=== PATIENT | male | born 1950 ===

== ENCOUNTER 2023-05-17 15:39 | Inpatient (IN) | payer MEDICARE, SELFPAY ==
[2023-05-17 16:48] VITALS: BMI 24.6
--- NOTE | 2023-05-17 16:59 | P.EN_ITS ---
Event Note Date of Service: 05/17/23 Event Note: Patient's case reviewed with Dr. Felix Jerome [facility] requesting transfer for patient for ECT for treatment resistant depression has had it in the past at [facility] patient has signed a Section 3 for transfer he in the family are requesting ECT treatment Records review Time Spent With Patient Time: Total time managing care of this patient today ____ minutes.
--- NOTE | 2023-05-17 18:01 | PC.ADMIT ---
Addendum entered and electronically signed by Lilly Jeronimo RN 05/17/23 18:25: Dr Garcia/Dr Andrade notified of WBC 13.85, platelet count 445 reported by [facility] during nurse to nurse report. Original Note: This is the 1st admission for this 72 y.o. male to this [facility] at [facility]. Arrived on unit at 1600 and placed on 15 min safety checks. Signed conditional voluntary. Referred by [facility] with Dx of Major Depressive D/O. Had been inpt on their Behavioral Health unit since 04/26/23, lateral transfer to this unit pending possible ECT treatment. Precipitating events to admission: ongoing depression, brian, psychosis and/or substance use with associated inability to safely/adequately care for self. Doc to doc report, nurse to nurse report done with [facility] prior to transfer. Pt presents with depressed mood and affect upon admission. Pleasant and attentive during admission process. Alert and oriented x4. Rates depression #8 and anxiety #7 on scale 1-10(10 worse). Denies SI/HI, denies AH/VH. Reports problems falling and staying asleep and state he is prescribed Trazodone. Reports poor appetite recently with approximately 14 pound wt loss. Reports chronic back pain rating #1 on scale 1-10(10 worse). Medical issues: NIDDM, HTN. Substance issues: reports etoh 4x week and marijuana use prior to admission to [facility] 04/26/23. Oriented to unit, safety tool completed. Ate 1/2 grilled cheese sandwich and 120ml cranberry juice for supper. Declined flu vaccine as he states he has already received this season.
[2023-05-17 19:57] VITALS: BP 129/70; PULSE 100; RESP 18; TEMP 36.5; O2SAT 96
[2023-05-17] MEDS: metFORMIN HCl 500 MG TABLET PO (22:12)
[2023-05-17] MEDS: traZODone HCL 100 MG TABLET PO (22:13)
[2023-05-17] MEDS: OLANZapine 7.5 MG TABLET PO (22:13)
[2023-05-18 08:23] LABS: Glucose, Whole Blood 99 mg/dL (60-115)
[2023-05-18 08:30] VITALS: BP 133/63; PULSE 79; RESP 20; TEMP 36.2; O2SAT 96
[2023-05-18] MEDS: Cholecalciferol (Vitamin D3) 25 MCG TABLET PO (08:32)
[2023-05-18] MEDS: metFORMIN HCl 500 MG TABLET PO ×2 (08:32→18:16)
[2023-05-18] MEDS: Atorvastatin Calcium 20 MG TABLET PO (08:32)
[2023-05-18] MEDS: OLANZapine 2.5 MG TABLET PO (08:33)
[2023-05-18] MEDS: buPROPion HCl XL 150 MG TAB.ER.24H PO (08:33)
[2023-05-18] MEDS: lisinopriL 10 MG TABLET PO (08:33)
[2023-05-18] MEDS: Escitalopram Oxalate 10 MG TABLET PO (08:33)
[2023-05-18] MEDS: Multivitamin TABLET 1 TAB PO (08:34)
[2023-05-18 10:42] LABS: Basophils Absolute Auto 0.1 X10*3/uL (0.0-0.2); Basophils Percent Auto 0.4 % (0-2); Eosinophils Absolute Auto 0.1 X10*3/uL (0.0-0.4); Eosinophils Percent Auto 0.8 % (0-4); Hematocrit 48.2 % (42.0-52.0); Hemoglobin 17.2 g/dl (14.0-18.0); Imm Gran Abs Auto 0.03 X10*3/uL (0.00-0.03); Imm Gran Pct Auto 0.3 % (0.0-0.4); Lymphocytes Absolute Auto 1.1 X10*3/uL (1.2-4.9); Lymphocytes Percent Auto 9.4 % (20-40); MANUAL DIFF FLAG NO; Mean Corpuscular HGB Conc 35.7 g/dl (31.0-36.0); Mean Corpuscular Volume 86.8 fL (80.0-98.0); Mean Platelet Volume 8.5 fL (9.4-12.4); Monocytes Absolute Auto 1.1 X10*3/uL (0.1-1.2); Monocytes Percent Auto 9.1 % (2-11); Neutrophils Absolute Auto 9.5 x10*3/uL (2.0-8.3); Platelet Count 414 X10*3/uL (160-400); Red Blood Count 5.55 X10*6/uL (4.60-5.80); Red Cell Distribution Width 12.5 % (11.0-16.0); White Blood Count 11.8 X10*3/uL (4.8-10.8)
[2023-05-18 11:02] LABS: Alanine Aminotransferase 30 U/L (0-40); Albumin Level 4.2 g/dL (3.5-5.0); Alkaline Phosphatase 112 U/L (39-117); Anion Gap 18 (12-20); Aspartate Amino Transferase 25 U/L (5-37); Bilirubin Total 0.8 mg/dL (0.0-1.0); Blood Urea Nitrogen 18 mg/dL (9-16); Calcium 10.1 mg/dL (8.4-10.2); Carbon Dioxide 25 mmol/L (22-29); Chloride 97 mmol/L (96-108); Cholesterol 122 mg/dL (<200); Creatinine Clr Calc Pharmacy 79.4; Estimated Glomerular Filt Rate > 60; Glucose Fasting 92 mg/dL (60-99); HDL Cholesterol 50 mg/dL (>40); LDL Cholesterol Calculated 57 mg/dL (<100); Potassium 4.3 mmol/L (3.3-5.1); Sodium 136 mmol/L (135-145); Total Protein 7.3 g/dL (6.5-8.0); Triglycerides 75 mg/dL (<150)
[2023-05-18 11:25] LABS: TSH reflex Free T4 0.62 uIU/mL (0.32-4.0)
--- NOTE | 2023-05-18 11:25 | HO.PSYADMNOT ---
HPI Date of Service: 05/18/23 Chief Complaint: Major Depressive Disorder Sources of Information: patient interviewed and chart reviewed HPI Subjective Notes: Conditional Voluntary Narrative: met with patient. Discussed with Nursing. Transfer from [facility] with plan for ECT treatment. Patient endorses significant depression, anxiety, lack of motivation, helplessness disturbed sleep and appetite perseveration. Does deny being suicidal. Does endorse hallucinations of noises in the background. Hopeful regarding ECT as this was successful back in 2018. No substance issues. No current medication concerns Past Psychiatric History: severe major depression with psychosis. He CT in 2018 successful. Current psychiatrist is Dr. Mayo. No history of suicide attempts Medical Evaluation Reviewed: Hospitalist [facility] Medical History HLD (hyperlipidemia) HTN (hypertension) Non-insulin dependent type 2 diabetes mellitus Social History: lives with his girlfriend in [place] for the last 4 years. Has 2 adult children. 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 Substance History: denied Diagnostics Vital Signs (24Hr): Vital Signs - 24 hr 05/17/23 19:57 Temperature 97.7 F Pulse Rate 100 Respiratory Rate 18 Blood Pressure 129/70 Pulse Oximetry 96 Oxygen Delivery Method Room Air BMI result Body Mass Index 24.6 Labs 05/18/23 10:11 05/18/23 10:11 Labs: Laboratory Results - last 48 hr 05/18/23 05/18/23 08:18 10:11 WBC 11.8 H RBC 5.55 Hgb 17.2 Hct 48.2 MCV 86.8 MCH 31.0 MCHC 35.7 RDW 12.5 Plt Count 414 H MPV 8.5 L Immature Gran % (Auto) 0.3 Neut % (Auto) 80.0 H Lymph % (Auto) 9.4 L [place] % (Auto) 9.1 Eos % (Auto) 0.8 Baso % (Auto) 0.4 Lymph # (Auto) 1.1 L [place] # (Auto) 1.1 Eos # (Auto) 0.1 Baso # (Auto) 0.1 Abs Immat Gran (auto) 0.03 Absolute Neuts (auto) 9.5 H Absolute Nucleated RBC 0.000 Nucleated RBC % (auto) 0.0 Sodium 136 Potassium 4.3 Chloride 97 Carbon Dioxide 25 Anion Gap 18 BUN 18 H Creatinine 0.84 Estim Creat Clear Calc 79.4 Estimated GFR > 60 POC Glucose 99 Fasting Glucose 92 Calcium 10.1 Total Bilirubin 0.8 AST 25 ALT 30 Alkaline Phosphatase 112 Total Protein 7.3 Albumin 4.2 Triglycerides 75 Cholesterol 122 LDL Cholesterol, Calc 57 HDL Cholesterol 50 Meds/Allergies Meds Home Medications Medication Instructions Recorded Confirmed Type atorvastatin 20 mg tablet 20 mg PO DAILY 05/17/23 05/17/23 History bupropion HCl 150 mg 24 hr tablet, 150 mg PO QAM 05/17/23 05/17/23 History extended release cholecalciferol (vitamin D3) 25 25 mcg PO DAILY 05/17/23 05/17/23 History mcg (1,000 unit) tablet citalopram 20 mg tablet 20 mg PO DAILY 05/17/23 05/17/23 History lisinopril 10 mg tablet 10 mg PO DAILY 05/17/23 05/17/23 History metformin 500 mg tablet 500 mg PO BIDWMEAL 05/17/23 05/17/23 History multivitamin 1 tab PO DAILY 05/17/23 05/17/23 History olanzapine 2.5 mg tablet 2.5 mg PO DAILY 05/17/23 05/17/23 History olanzapine 7.5 mg tablet 7.5 mg PO BEDTIME 05/17/23 05/17/23 History trazodone 100 mg tablet 100 mg PO BEDTIME 05/17/23 05/17/23 History Allergies Allergies Allergy/AdvReac Type Severity Reaction Status Date / Time Penicillins [PENICILLINS] Allergy Unknown rash Verified 05/17/23 22:12 Mental Status Exam Mental Status Exam Narrative: Pleasant. Engaged. Fairly presented. Organized. Depressed and anxious. No SI. No HI. No agitation. Endorses hearing sounds/hallucinations. Insight and judgment fair Assessment & Plan Assessment & Plan (1) Major depression with psychotic features: Status: Acute Code(s): F32.3 - Major depressive disorder, single episode, severe with psychotic features Plan presents with severe major depression and psychosis. Transferred from [facility] psychiatry unit for ECT treatment. Successfully had ECT treatment in 2018. Will order hospitalist consult for ECT clearance. Otherwise no change in current management plan. Will be seen by primary team on Saturday05/20/2023 around formal ECT consent etc. And likely 1st ECT on Saturday05/22/2023 Patient educated on: diagnosis and ECT Reason for continued inpatient stay Substantial Risk for: inability to function Statement Statement: I have reviewed the history and physical and performed a pertinent examination on my patient. No changes have occurred unless specified. If the History and Physical was not performed prior to admission, the Hospitalist's service will be consulted for completing the admission physical. Time Spent With Patient Time: Total time managing care of this patient today ____ minutes.
[2023-05-18 11:39] LABS: Folate 16.3 ng/mL (> or = 4.0); Vitamin B12 1394 pg/mL (200-900)
--- NOTE | 2023-05-18 12:50 | P.CONHOSP_ITS ---
History of Present Illness Data of Consult Service Date: 05/18/23 Requesting physician: Fredrick Andrade Primary Care Provider: Unknown Physician HPI Reason for consult: medical h&p, ect evaluation 72-year-old male with history of hyperlipidemia, hypertension, [id number] type 2 diabetes, and mood disorder admitted to Psychiatry from [facility] ED with consult placed to hospitalist service for medical H and P as well as ECT evaluation. The patient is reporting positional dizziness described as lightheadedness rather than the room spinning. Reports this is self-limiting within several seconds. Denies any syncope, shortness of breath, chest pain. States this has been longstanding. He is also reporting decreased urinary output that has been ongoing for several weeks or months. He denies any dysuria, hematuria, increased urinary frequency, urgency, or flank pain, or abdominal pain. He is unsure if he has any known BPH. He has undergone ECT in the past without any adverse effect. He is able to ambulate down along cord or without any dyspnea on exertion, chest pain, lightheadedness, or palpitations. He is able Rishi and several flights of stairs without difficulty. Denies any known history of seizure disorder cardiovascular disease. He is a former smoker who quit 35 years ago. Denies any illicit drug use and reports drinking 1-2 alcoholic beverages on a daily basis. Review of Systems 2 Review of Systems: General: No fevers, malaise, unintentional weight loss HEENT: No blurred vision, diplopia. No sore throat, nasal congestion, rhinorrhea, sinus pain, ear pain Cardiovascular: No chest pain, palpitations, or leg edema Respiratory: No shortness of breath, wheezing, cough GI: No abdominal pain, nausea, vomiting, diarrhea, constipation, melena, hematochezia : +decreased urinary output. No dysuria, hematuria, increased urinary frequency MSK: No myalgia, back pain Neuro: No headaches, weakness, paresthesias. +positional lightheadedness Skin: No rashes or lesions [facility] Medical History HLD (hyperlipidemia) HTN (hypertension) Non-insulin dependent type 2 diabetes mellitus Social History Household Members: Significant Other Housing: Apartment Do you presently have visiting nurse or other home services: No Patient Tobacco Use Status: Former Tobacco user Quit Date: 50 years ago Tobacco use type: Cigarette Smoked in Last 30 Days: No e-Cigarette/Vaping Use: Never Used Patient Interested in Nicotine Replacement: No Patient Given Instructions on How to Stop Smoking: No (n/a) Second Hand Smoke Exposure: No Use of substances other than those prescribed or required for medical reasons: Yes Substance Use Type: Marijuana Substance Use Frequency: Chronic Longstanding Last Used Substance Other:: month ago Currently Displaying Signs/Symptoms of Drug Intoxication Withdrawal: No Any prior treatment program specific to substance use: No Have you been hit, kicked, punched, or otherwise hurt by someone within the past year? If so, by whom?: No Do you feel safe in your current relationship?: Yes Is there a partner from a previous relationship who is making you feel unsafe now?: No Are you made to feel afraid or neglected: No Advance Directives: No Advance Directives Information Provided: No Do you have thoughts of harming others: None Do you have a plan to hurt others: No Plan Recently lost weight without trying: Yes How much weight loss: 14-23 pounds Eating poorly because of decreased appetite: No Nutrition screen score: 4 Nutrition Risks: Dental problems Poor oral hygiene: Yes Meds Allergies Allergy/AdvReac Type Severity Reaction Status Date / Time Penicillins [PENICILLINS] Allergy Unknown rash Verified 05/17/23 22:12 Active Medications: Current Medications Acetaminophen (Acetaminophen 325 Mg Tablet) 650 mg PO Q6H PRN PRN Reason: Headache/Pain Mild Scale (1-3) Al Hydroxide/Mg Hydroxide (Magnesium Hydrox/Alum Hydrox 30 Ml Oral.Susp) 30 ml PO Q6H PRN PRN Reason: Heartburn/Nausea Atorvastatin Calcium (Atorvastatin Calcium 20 Mg Tablet) 20 mg PO DAILY [facility] Last Admin: 05/18/23 08:32 Dose: 20 mg Bupropion HCl (Bupropion Hcl Xl 150 Mg Tab.Er.24h) 150 mg PO DAILY [facility] Last Admin: 05/18/23 08:33 Dose: 150 mg Escitalopram Oxalate (Escitalopram Oxalate 10 Mg Tablet) 10 mg PO DAILY [facility] Last Admin: 05/18/23 08:33 Dose: 10 mg Hydroxyzine HCl (Hydroxyzine Hcl 25 Mg Tablet) 25 mg PO Q6H PRN PRN Reason: Anxiety Lisinopril (Lisinopril 10 Mg Tablet) 10 mg PO DAILY [facility]; Protocol Last Admin: 05/18/23 08:33 Dose: 10 mg Magnesium Hydroxide (Milk Of Magnesia 30 Ml Oral.Susp) 30 ml PO DAILY PRN PRN Reason: Constipation Metformin HCl (Metformin Hcl 500 Mg Tablet) 500 mg PO BIDWM [facility] Last Admin: 05/18/23 08:32 Dose: 500 mg Multivitamins/Vitamin C (Multivitamin Tablet) 1 tab PO DAILY [facility] Last Admin: 05/18/23 08:34 Dose: 1 tab Olanzapine (Olanzapine 2.5 Mg Tablet) 2.5 mg PO DAILY [facility] Last Admin: 05/18/23 08:33 Dose: 2.5 mg Olanzapine (Olanzapine 7.5 Mg Tablet) 7.5 mg PO BEDTIME [facility] Last Admin: 05/17/23 22:13 Dose: 7.5 mg Tamsulosin HCl (Tamsulosin Hcl 0.4 Mg Capsule) 0.4 mg PO BEDTIME [facility] Trazodone HCl (Trazodone Hcl 50 Mg Tablet) 50 mg PO BEDTIME MRX1 PRN PRN Reason: Insomnia Trazodone HCl (Trazodone Hcl 100 Mg Tablet) 100 mg PO BEDTIME [facility] Last Admin: 05/17/23 22:13 Dose: 100 mg Vitamin D (Cholecalciferol (Vitamin D3) 25 Mcg Tablet) 25 mcg PO DAILY [facility] Last Admin: 05/18/23 08:32 Dose: 25 mcg Home Medications Medication Instructions Recorded Confirmed Last Taken Type atorvastatin 20 mg tablet 20 mg PO DAILY 05/17/23 05/17/23 05/17/23 09:16 History bupropion HCl 150 mg 24 hr tablet, 150 mg PO QAM 05/17/23 05/17/23 05/17/23 09:16 History extended release cholecalciferol (vitamin D3) 25 25 mcg PO DAILY 05/17/23 05/17/23 05/17/23 09:16 History mcg (1,000 unit) tablet citalopram 20 mg tablet 20 mg PO DAILY 05/17/23 05/17/23 05/17/23 09:16 History lisinopril 10 mg tablet 10 mg PO DAILY 05/17/23 05/17/23 05/17/23 09:16 History metformin 500 mg tablet 500 mg PO BIDWMEAL 05/17/23 05/17/23 05/17/23 09:16 History multivitamin 1 tab PO DAILY 05/17/23 05/17/23 05/17/23 09:16 History olanzapine 2.5 mg tablet 2.5 mg PO DAILY 05/17/23 05/17/23 05/17/23 09:21 History olanzapine 7.5 mg tablet 7.5 mg PO BEDTIME 05/17/23 05/17/23 05/16/23 19:46 History trazodone 100 mg tablet 100 mg PO BEDTIME 05/17/23 05/17/23 05/16/23 19:46 History Physical Exam 2 Vital Signs and Narrative: Vital Signs: Last Vital Signs Temp 97.7 F 05/17/23 19:57 Pulse 100 05/17/23 19:57 Resp 18 05/17/23 19:57 BP 129/70 05/17/23 19:57 Pulse Ox 96 05/17/23 19:57 O2 Del Method Room Air 05/17/23 19:57 BMI result Body Mass Index 24.6 Constitutional - Awake and Alert, No apparent distress Eyes - PERRLA, EOMI Cardiovascular - S1S2, RRR, No edema Respiratory - Normal lung expansion, Normal respiratory effort, No respiratory distress, CTA bilaterally Gastrointestinal - NT / ND; +BS; No rebound or guarding Extremities - no calf tenderness bilaterally, no swelling Musculoskeletal - Normal inspection, normal ROM Skin - Warm/Dry Neurological - Alert & oriented x3, CN II-XII in tact, 4/5 strength BUE and BLE Psychological - Appropriate affect Results Labs 05/18/23 10:11 05/18/23 10:11 Labs: Laboratory Results - last 24 hr 05/18/23 05/18/23 08:18 10:11 MCV 86.8 MCH 31.0 MCHC 35.7 RDW 12.5 Plt Count 414 H MPV 8.5 L Immature Gran % (Auto) 0.3 Neut % (Auto) 80.0 H Lymph % (Auto) 9.4 L [place] % (Auto) 9.1 Eos % (Auto) 0.8 Baso % (Auto) 0.4 Lymph # (Auto) 1.1 L [place] # (Auto) 1.1 Eos # (Auto) 0.1 Baso # (Auto) 0.1 Abs Immat Gran (auto) 0.03 Absolute Neuts (auto) 9.5 H Absolute Nucleated RBC 0.000 Nucleated RBC % (auto) 0.0 Anion Gap 18 Estim Creat Clear Calc 79.4 Estimated GFR > 60 POC Glucose 99 Fasting Glucose 92 Calcium 10.1 Total Bilirubin 0.8 AST 25 ALT 30 Alkaline Phosphatase 112 Total Protein 7.3 Albumin 4.2 Triglycerides 75 Cholesterol 122 LDL Cholesterol, Calc 57 HDL Cholesterol 50 Vitamin B12 1394 H Folate 16.3 TSH 0.62 Assessment and Plan (1) Routine medical exam: Status: Acute Plan 72-year-old male with history of hyperlipidemia, hypertension, [id number]-fkbakosam type 2 diabetes, and mood disorder admitted to Psychiatry from [facility] ED with consult placed to hospitalist service for medical H and P as well as ECT evaluation. #Mood disorder -plan per psychiatry -at this time no medical contraindication exists that would preclude patient from undergoing ect #Daily etoh use -drinks 1-2 etoh beverages daily -no evidence of withdrawal -plan per psychiatry, but would recommend thiamine and folic acid supplements -lfts normal #Positional lightheadness -no acute change -check orthostatic vitals -Recommend slow position changes #Decreased urinary output -suspect r/t bph -Check UA/uc to r/o infection, though otherwise asymptomatic -outpt follow up -can consider flomax, but may exacerbate lightheadedness #HTN -bp reasonably controlled -continue home meds #HLD -continue statin Will continue following for results. ED chart reviewed Time Spent With Patient Time: Total time managing care of this patient today ____ minutes.
[2023-05-18 14:05] VITALS: BP 137/79; PULSE 84; RESP 20; TEMP 36.3; O2SAT 96
[2023-05-18 15:09] LABS: Appearance Urine Cloudy; Color Urine Dark Yellow; Glucose Urine UA Negative (Negative); Leukocyte Esterase Urine Negative (Negative); Nitrite Urine Negative (Negative); Specific Gravity - Urine >= 1.030 (1.005-1.025); Urine Blood Negative (Negative); Urine Ketones 15 mg/dL (Negative); Urine Protein Trace mg/dL (Neg-Trace)
[2023-05-18 19:09] VITALS: BP 135/77; PULSE 110; RESP 18; TEMP 36.7; O2SAT 97
[2023-05-18 22:00] VITALS: BP 150/82; PULSE 89
[2023-05-18] MEDS: OLANZapine 7.5 MG TABLET PO (22:33)
[2023-05-18] MEDS: traZODone HCL 100 MG TABLET PO (22:33)
--- NOTE | 2023-05-19 06:33 | PC.NURSE ---
Camilo has been encouraged to increase his fluid intake in an attempt to decrease the orthostatic changes which were noted during the day shift. patient had an order for 1 liter of IV fluids however, authorized staff were unable to place an IV line. Provider Nishi Mendoza was notified. a new set of orthostatice B/P and HR were obtained and provider notified of results. The provider discontinued the order for IV fluids and stated she would reevaluate the patient in the morning. orthos are as follows laying 150/82 pulse 89, sitting 145/69 pulse 92, standing 150/73 pulse 119. patient did c/o continued mild dizziness upon standing, provider aware
[2023-05-19 08:08] LABS: Glucose, Whole Blood 104 mg/dL (60-115)
[2023-05-19 09:00] VITALS: BP 132/79; PULSE 88; RESP 20; TEMP 36.5; O2SAT 95
[2023-05-19] MEDS: Folic Acid 1 MG TABLET PO (09:03)
[2023-05-19] MEDS: metFORMIN HCl 500 MG TABLET PO ×2 (09:03→16:20)
[2023-05-19] MEDS: Thiamine HCL 100 MG TABLET PO (09:03)
[2023-05-19] MEDS: Escitalopram Oxalate 10 MG TABLET PO (09:03)
[2023-05-19] MEDS: Atorvastatin Calcium 20 MG TABLET PO (09:03)
[2023-05-19] MEDS: buPROPion HCl XL 150 MG TAB.ER.24H PO (09:03)
[2023-05-19] MEDS: OLANZapine 2.5 MG TABLET PO (09:03)
[2023-05-19] MEDS: Cholecalciferol (Vitamin D3) 25 MCG TABLET PO (09:04)
[2023-05-19] MEDS: Multivitamin TABLET 1 TAB PO (09:04)
[2023-05-19] MEDS: lisinopriL 10 MG TABLET PO (11:25)
[2023-05-19] MEDS: 0.9 % Sodium Chloride 1,000 ML 500 ML IV (12:20)
[2023-05-19 14:45] VITALS: BP 158/78; PULSE 84
--- NOTE | 2023-05-19 14:58 | P.PNPSI_ITS ---
Subjective Subjective Date of Service: 05/19/23 Reason For Visit: Major Depressive Disorder Subjective Notes: Conditional Voluntary Interim History: Met with patient. Discussed with Nursing. Remains depressed and anxious. Intermittent hallucinations. Hopelessness at times, however remains hopeful for ECT. Noted orthostatics symptoms and strongly encouraging fluids. Did endorse some dizziness when standing. Noted hospitalist clearance for ECT and place. Medication Compliance: Yes Side effects from medications: No Attending Groups: Yes Review of Systems Review of Systems orthostasis noted- encouraging fluids Mental Status Exam Mental Status Exam Narrative: Pleasant. Engaged. Fairly presented. Organized. Depressed and anxious. No SI. No HI. No agitation. Endorses hearing sounds/hallucinations. Insight and judgment fair Diagnostics Vital Signs (24Hr): Vital Signs - 24 hr 05/18/23 19:09 05/18/23 22:00 05/19/23 09:00 Temperature 98.0 F Pulse Rate 110 H 89 88 Respiratory Rate 18 Blood Pressure 135/77 150/82 H 132/79 Pulse Oximetry 97 Oxygen Delivery Method Room Air 05/19/23 09:00 05/19/23 14:45 Temperature 97.7 F Pulse Rate 88 84 Respiratory Rate 20 Blood Pressure 132/79 158/78 H Pulse Oximetry 95 Oxygen Delivery Method Room Air BMI result Body Mass Index 24.6 Labs 05/18/23 10:11 05/18/23 10:11 Labs: Laboratory Results - last 48 hr 05/18/23 05/18/23 05/18/23 08:18 10:11 14:50 WBC 11.8 H RBC 5.55 Hgb 17.2 Hct 48.2 MCV 86.8 MCH 31.0 MCHC 35.7 RDW 12.5 Plt Count 414 H MPV 8.5 L Immature Gran % (Auto) 0.3 Neut % (Auto) 80.0 H Lymph % (Auto) 9.4 L [place] % (Auto) 9.1 Eos % (Auto) 0.8 Baso % (Auto) 0.4 Lymph # (Auto) 1.1 L [place] # (Auto) 1.1 Eos # (Auto) 0.1 Baso # (Auto) 0.1 Abs Immat Gran (auto) 0.03 Absolute Neuts (auto) 9.5 H Absolute Nucleated RBC 0.000 Nucleated RBC % (auto) 0.0 Sodium 136 Potassium 4.3 Chloride 97 Carbon Dioxide 25 Anion Gap 18 BUN 18 H Creatinine 0.84 Estim Creat Clear Calc 79.4 Estimated GFR > 60 POC Glucose 99 Fasting Glucose 92 Calcium 10.1 Total Bilirubin 0.8 AST 25 ALT 30 Alkaline Phosphatase 112 Total Protein 7.3 Albumin 4.2 Triglycerides 75 Cholesterol 122 LDL Cholesterol, Calc 57 HDL Cholesterol 50 Vitamin B12 1394 H Folate 16.3 TSH 0.62 Urine Color Dark Yellow Urine Appearance Cloudy Urine pH 5.0 Ur Specific Watson >= 1.030 H Urine Protein Trace Urine Glucose (UA) Negative Urine Ketones 15 Urine Blood Negative Urine Nitrite Negative Ur Leukocyte Esterase Negative 05/19/23 07:57 WBC RBC Hgb Hct MCV MCH MCHC RDW Plt Count MPV Immature Gran % (Auto) Neut % (Auto) Lymph % (Auto) [place] % (Auto) Eos % (Auto) Baso % (Auto) Lymph # (Auto) [place] # (Auto) Eos # (Auto) Baso # (Auto) Abs Immat Gran (auto) Absolute Neuts (auto) Absolute Nucleated RBC Nucleated RBC % (auto) Sodium Potassium Chloride Carbon Dioxide Anion Gap BUN Creatinine Estim Creat Clear Calc Estimated GFR POC Glucose 104 Fasting Glucose Calcium Total Bilirubin AST ALT Alkaline Phosphatase Total Protein Albumin Triglycerides Cholesterol LDL Cholesterol, Calc HDL Cholesterol Vitamin B12 Folate TSH Urine Color Urine Appearance Urine pH Ur Specific Watson Urine Protein Urine Glucose (UA) Urine Ketones Urine Blood Urine Nitrite Ur Leukocyte Esterase Medications Medications Current Medications Acetaminophen (Acetaminophen 325 Mg Tablet) 650 mg PO Q6H PRN PRN Reason: Headache/Pain Mild Scale (1-3) Al Hydroxide/Mg Hydroxide (Magnesium Hydrox/Alum Hydrox 30 Ml Oral.Susp) 30 ml PO Q6H PRN PRN Reason: Heartburn/Nausea Atorvastatin Calcium (Atorvastatin Calcium 20 Mg Tablet) 20 mg PO DAILY [facility] Last Admin: 05/19/23 09:03 Dose: 20 mg Bupropion HCl (Bupropion Hcl Xl 150 Mg Tab.Er.24h) 150 mg PO DAILY [facility] Last Admin: 05/19/23 09:03 Dose: 150 mg Escitalopram Oxalate (Escitalopram Oxalate 10 Mg Tablet) 10 mg PO DAILY [facility] Last Admin: 05/19/23 09:03 Dose: 10 mg Folic Acid (Folic Acid 1 Mg Tablet) 1 mg PO DAILY [facility] Last Admin: 05/19/23 09:03 Dose: 1 mg Hydroxyzine HCl (Hydroxyzine Hcl 25 Mg Tablet) 25 mg PO Q6H PRN PRN Reason: Anxiety Lisinopril (Lisinopril 10 Mg Tablet) 10 mg PO DAILY [facility]; Protocol Last Admin: 05/19/23 11:25 Dose: 10 mg Magnesium Hydroxide (Milk Of Magnesia 30 Ml Oral.Susp) 30 ml PO DAILY PRN PRN Reason: Constipation Metformin HCl (Metformin Hcl 500 Mg Tablet) 500 mg PO BIDWM [facility] Last Admin: 05/19/23 09:03 Dose: 500 mg Multivitamins/Vitamin C (Multivitamin Tablet) 1 tab PO DAILY [place] Last Admin: 05/19/23 09:04 Dose: 1 tab Olanzapine (Olanzapine 2.5 Mg Tablet) 2.5 mg PO DAILY [facility] Last Admin: 05/19/23 09:03 Dose: 2.5 mg Olanzapine (Olanzapine 7.5 Mg Tablet) 7.5 mg PO BEDTIME [facility] Last Admin: 05/18/23 22:33 Dose: 7.5 mg Thiamine HCl (Thiamine Hcl 100 Mg Tablet) 100 mg PO DAILY [facility] Last Admin: 05/19/23 09:03 Dose: 100 mg Trazodone HCl (Trazodone Hcl 50 Mg Tablet) 50 mg PO BEDTIME MRX1 PRN PRN Reason: Insomnia Trazodone HCl (Trazodone Hcl 100 Mg Tablet) 100 mg PO BEDTIME [facility] Last Admin: 05/18/23 22:33 Dose: 100 mg Vitamin D (Cholecalciferol (Vitamin D3) 25 Mcg Tablet) 25 mcg PO DAILY [facility] Last Admin: 05/19/23 09:04 Dose: 25 mcg Allergies Allergies Allergy/AdvReac Type Severity Reaction Status Date / Time Penicillins [PENICILLINS] Allergy Unknown rash Verified 05/17/23 22:12 Assessment & Plan Assessment & Plan (1) Major depression with psychotic features: Status: Acute Code(s): F32.3 - Major depressive disorder, single episode, severe with psychotic features Assessment and Plan: ECT to start Saturday05/20/23- confirmed with Dr. Garcia. NPO tonight and consents will be done pre ECT tomorrow Plan 72-year-old male with history of hyperlipidemia, hypertension, [id number] type 2 diabetes, and mood disorder admitted to Psychiatry from [facility] ED with consult placed to hospitalist service for medical H and P as well as ECT evaluation. #Mood disorder -plan per psychiatry -at this time no medical contraindication exists that would preclude patient from undergoing ect #Daily etoh use -drinks 1-2 etoh beverages daily -no evidence of withdrawal -plan per psychiatry, but would recommend thiamine and folic acid supplements -lfts normal #Positional lightheadness -no acute change -check orthostatic vitals -Recommend slow position changes #Decreased urinary output -suspect r/t bph -Check UA/uc to r/o infection, though otherwise asymptomatic -outpt follow up -can consider flomax, but may exacerbate lightheadedness #HTN -bp reasonably controlled -continue home meds #HLD -continue statin Will continue following for results. ED chart reviewed Reason for continued inpatient stay Substantial Risk for: inability to function Time Spent With Patient Time: Total time managing care of this patient today ____ minutes.
[2023-05-19 18:30] VITALS: BP 136/87; PULSE 58; RESP 16; TEMP 36.2; O2SAT 97
--- NOTE | 2023-05-19 18:35 | PM.EVENT ---
Event Note Date of Service: 05/19/23 Event Note: Orthostatic hypotension improved with 1L IV NS but still slightly orthostatic sitting --> standing. Recommend encouraging PO fluids. Likely also related to anti psychotic use. If symptoms persist, recommend considering medication adjustment if appropriate. Time Spent With Patient Time: Total time managing care of this patient today ____ minutes.
[2023-05-19] MEDS: traZODone HCL 100 MG TABLET PO (21:18)
[2023-05-19] MEDS: OLANZapine 7.5 MG TABLET PO (21:18)
--- NOTE | 2023-05-19 21:25 | PC.NURSE ---
Patient has a hep lck in his left wrist area. 3cc flush done. Patent with no difficulty flushing.
[2023-05-20] VITALS (11 sets, daily range): BP systolic 126–197; BP diastolic 68–105; PULSE 75–106; RESP 14–18; TEMP 36.1–37.1; O2SAT 96–100
--- NOTE | 2023-05-20 | ECG_ITS ---
Test Reason : per Blood Pressure : / mmHG Vent. Rate : 086 BPM Atrial Rate : 086 BPM P-R Int : 164 ms QRS Dur : 118 ms QT Int : 370 ms P-R-T Axes : 069 -38 065 degrees QTc Int : 442 ms Normal sinus rhythm Left anterior fascicular block Incomplete right bundle branch block Abnormal ECG No previous ECGs available Referred By: Armand Ramires Electronically Signed By:TEETEE SWARTZ MD
--- NOTE | 2023-05-20 07:17 | P.HPSUR_ITS ---
Pre-Procedural Eval Section A Date of Service: 05/20/23 The patient is an INPATIENT: Yes Changes since office visit: No Cold of Flu in the past 2 weeks, No New Medical Problems, No Changes in Medication and No Patient answered all questions The History & Physical has been completed within 30 days and I have reviewed it.: Yes Section B Chief Complaint: Major Depressive Disorder Details of Present Illness: The patient was transferred from [facility] in order to do ECT that historically has helped for depression. Patient is eager to have the procedure. Relevant Family History (Specify if Yes): No Relevant Social History: None Present Medications: None Medical History: No relevant PMH History of Previous Operations: No relevant previous surgery Allergies: Allergies Allergy/AdvReac Type Severity Reaction Status Date / Time Penicillins [PENICILLINS] Allergy Unknown rash Verified 05/17/23 22:12 Review of Systems Sugical H&P ROS: Negative: Constitution, Cardiovascular, Respiratory, Neurological, Psychiatric, Hem-Onc, Allergic/Immunologic, Gastrointestinal, Genitourinary, Musculoskeletal, Integumentary, Endocrine and Eyes/Ears/Nose/Throat Exam Surgical H&P Exam: Normal: HEENT, Normal: Heart, Normal: Lungs, Normal: Extremities, Normal: Abdomen, Normal: Skin and Normal: Neurological Plan Diagnosis/Plan: Unchanged I have reviewed the history and physical and performed a pertinent physical examination on my patient. No changes have occurred unless specified. Time Spent With Patient Time: Total time managing care of this patient today _20___ minutes.
[2023-05-20 07:30] LABS: Glucose, Whole Blood 110 mg/dL (60-115)
--- NOTE | 2023-05-20 07:34 | HO.ANESPROP2 ---
HPI - Anesthesia Eval Consult details Narrative: Major depression with psychotic features PMF Active Problems Active Problems: All Active Problems (Updated 05/18/23 @ 16:31 by Samuel Booth MD) Major depression with psychotic features (Acute) Routine medical exam (Acute) Past Medical History Medical History HLD (hyperlipidemia) HTN (hypertension) Non-insulin dependent type 2 diabetes mellitus Family History Family history of problems with anesthesia: No Surgical History History of Problems with Anesthesia: No Social History Social History Household Members: Significant Other Housing: Apartment Do you presently have visiting nurse or other home services: No Patient Tobacco Use Status: Former Tobacco user Quit Date: 50 years ago Tobacco use type: Cigarette Smoked in Last 30 Days: No e-Cigarette/Vaping Use: Never Used Patient Interested in Nicotine Replacement: No Patient Given Instructions on How to Stop Smoking: No (n/a) Second Hand Smoke Exposure: No Use of substances other than those prescribed or required for medical reasons: Yes Substance Use Type: Marijuana Substance Use Frequency: Chronic Longstanding Last Used Substance Other:: month ago Currently Displaying Signs/Symptoms of Drug Intoxication Withdrawal: No Any prior treatment program specific to substance use: No Have you been hit, kicked, punched, or otherwise hurt by someone within the past year? If so, by whom?: No Do you feel safe in your current relationship?: Yes Is there a partner from a previous relationship who is making you feel unsafe now?: No Are you made to feel afraid or neglected: No Advance Directives: No Advance Directives Information Provided: No Do you have thoughts of harming others: None Do you have a plan to hurt others: No Plan Recently lost weight without trying: Yes How much weight loss: 14-23 pounds Eating poorly because of decreased appetite: No Nutrition screen score: 4 Nutrition Risks: Dental problems Poor oral hygiene: Yes service: No Sexual orientation: Straight/Heterosexual Meds Allergies Allergy/AdvReac Type Severity Reaction Status Date / Time Penicillins [PENICILLINS] Allergy Unknown rash Verified 05/17/23 22:12 Active Medications: Current Medications Acetaminophen (Acetaminophen 325 Mg Tablet) 650 mg PO Q6H PRN PRN Reason: Headache/Pain Mild Scale (1-3) Al Hydroxide/Mg Hydroxide (Magnesium Hydrox/Alum Hydrox 30 Ml Oral.Susp) 30 ml PO Q6H PRN PRN Reason: Heartburn/Nausea Atorvastatin Calcium (Atorvastatin Calcium 20 Mg Tablet) 20 mg PO DAILY [facility] Last Admin: 05/19/23 09:03 Dose: 20 mg Bupropion HCl (Bupropion Hcl Xl 150 Mg Tab.Er.24h) 150 mg PO DAILY [facility] Last Admin: 05/19/23 09:03 Dose: 150 mg Escitalopram Oxalate (Escitalopram Oxalate 10 Mg Tablet) 10 mg PO DAILY [facility] Last Admin: 05/19/23 09:03 Dose: 10 mg Folic Acid (Folic Acid 1 Mg Tablet) 1 mg PO DAILY [facility] Last Admin: 05/19/23 09:03 Dose: 1 mg Hydroxyzine HCl (Hydroxyzine Hcl 25 Mg Tablet) 25 mg PO Q6H PRN PRN Reason: Anxiety Lisinopril (Lisinopril 10 Mg Tablet) 10 mg PO DAILY [facility]; Protocol Last Admin: 05/19/23 11:25 Dose: 10 mg Magnesium Hydroxide (Milk Of Magnesia 30 Ml Oral.Susp) 30 ml PO DAILY PRN PRN Reason: Constipation Metformin HCl (Metformin Hcl 500 Mg Tablet) 500 mg PO BIDWM [facility] Last Admin: 05/19/23 16:20 Dose: 500 mg Multivitamins/Vitamin C (Multivitamin Tablet) 1 tab PO DAILY [facility] Last Admin: 05/19/23 09:04 Dose: 1 tab Olanzapine (Olanzapine 2.5 Mg Tablet) 2.5 mg PO DAILY [facility] Last Admin: 05/19/23 09:03 Dose: 2.5 mg Olanzapine (Olanzapine 7.5 Mg Tablet) 7.5 mg PO BEDTIME [facility] Last Admin: 05/19/23 21:18 Dose: 7.5 mg Senna (Sennosides 8.6 Mg Tablet) 17.2 mg PO Q24H PRN PRN Reason: constipation Thiamine HCl (Thiamine Hcl 100 Mg Tablet) 100 mg PO DAILY [facility] Last Admin: 05/19/23 09:03 Dose: 100 mg Trazodone HCl (Trazodone Hcl 50 Mg Tablet) 50 mg PO BEDTIME MRX1 PRN PRN Reason: Insomnia Trazodone HCl (Trazodone Hcl 100 Mg Tablet) 100 mg PO BEDTIME [facility] Last Admin: 05/19/23 21:18 Dose: 100 mg Vitamin D (Cholecalciferol (Vitamin D3) 25 Mcg Tablet) 25 mcg PO DAILY [place] Last Admin: 05/19/23 09:04 Dose: 25 mcg Home Medications Medication Instructions Recorded Confirmed Last Taken Type atorvastatin 20 mg tablet 20 mg PO DAILY 05/17/23 05/17/23 05/17/23 09:16 History bupropion HCl 150 mg 24 hr tablet, 150 mg PO QAM 05/17/23 05/17/23 05/17/23 09:16 History extended release cholecalciferol (vitamin D3) 25 25 mcg PO DAILY 05/17/23 05/17/23 05/17/23 09:16 History mcg (1,000 unit) tablet citalopram 20 mg tablet 20 mg PO DAILY 05/17/23 05/17/23 05/17/23 09:16 History lisinopril 10 mg tablet 10 mg PO DAILY 05/17/23 05/17/23 05/17/23 09:16 History metformin 500 mg tablet 500 mg PO BIDWMEAL 05/17/23 05/17/23 05/17/23 09:16 History multivitamin 1 tab PO DAILY 05/17/23 05/17/23 05/17/23 09:16 History olanzapine 2.5 mg tablet 2.5 mg PO DAILY 05/17/23 05/17/23 05/17/23 09:21 History olanzapine 7.5 mg tablet 7.5 mg PO BEDTIME 05/17/23 05/17/23 05/16/23 19:46 History trazodone 100 mg tablet 100 mg PO BEDTIME 05/17/23 05/17/23 05/16/23 19:46 History Exam Exam Date and Time: May 20, 2023 0734 Height,Weight and Vital Signs: Height 5 ft 9 in Weight 75.438 kg Last Vital Signs Temp 97.1 F 05/20/23 07:26 Pulse 85 05/20/23 07:26 Resp 14 05/20/23 07:26 BP 148/81 H 05/20/23 07:26 Pulse Ox 97 05/20/23 07:26 O2 Del Method Room Air 05/20/23 07:26 Pertinent Lab Results Pertinent Lab Results: Laboratory Tests 05/18/23 05/18/23 05/18/23 08:18 10:11 14:50 WBC 11.8 H RBC 5.55 Hgb 17.2 Hct 48.2 MCV 86.8 MCH 31.0 MCHC 35.7 RDW 12.5 Plt Count 414 H MPV 8.5 L Immature Gran % (Auto) 0.3 Neut % (Auto) 80.0 H Lymph % (Auto) 9.4 L [place] % (Auto) 9.1 Eos % (Auto) 0.8 Baso % (Auto) 0.4 Lymph # (Auto) 1.1 L [place] # (Auto) 1.1 Eos # (Auto) 0.1 Baso # (Auto) 0.1 Abs Immat Gran (auto) 0.03 Absolute Neuts (auto) 9.5 H Absolute Nucleated RBC 0.000 Nucleated RBC % (auto) 0.0 Sodium 136 Potassium 4.3 Chloride 97 Carbon Dioxide 25 Anion Gap 18 BUN 18 H Creatinine 0.84 Estim Creat Clear Calc 79.4 Estimated GFR > 60 POC Glucose 99 Fasting Glucose 92 Calcium 10.1 Total Bilirubin 0.8 AST 25 ALT 30 Alkaline Phosphatase 112 Total Protein 7.3 Albumin 4.2 Triglycerides 75 Cholesterol 122 LDL Cholesterol, Calc 57 HDL Cholesterol 50 Vitamin B12 1394 H Folate 16.3 TSH 0.62 Urine Color Dark Yellow Urine Appearance Cloudy Urine pH 5.0 Ur Specific [place] >= 1.030 H Urine Protein Trace Urine Glucose (UA) Negative Urine Ketones 15 Urine Blood Negative Urine Nitrite Negative Ur Leukocyte Esterase Negative 05/19/23 05/20/23 07:57 07:27 WBC RBC Hgb Hct MCV MCH MCHC RDW Plt Count MPV Immature Gran % (Auto) Neut % (Auto) Lymph % (Auto) [place] % (Auto) Eos % (Auto) Baso % (Auto) Lymph # (Auto) [place] # (Auto) Eos # (Auto) Baso # (Auto) Abs Immat Gran (auto) Absolute Neuts (auto) Absolute Nucleated RBC Nucleated RBC % (auto) Sodium Potassium Chloride Carbon Dioxide Anion Gap BUN Creatinine Estim Creat Clear Calc Estimated GFR POC Glucose 104 110 Fasting Glucose Calcium Total Bilirubin AST ALT Alkaline Phosphatase Total Protein Albumin Triglycerides Cholesterol LDL Cholesterol, Calc HDL Cholesterol Vitamin B12 Folate TSH Urine Color Urine Appearance Urine pH Ur Specific [place] Urine Protein Urine Glucose (UA) Urine Ketones Urine Blood Urine Nitrite Ur Leukocyte Esterase Airway Mallampati Class: II TM Dist: >3cm Neck ROM: Full Loose/Missing/Broken Teeth: Yes (missing multiple teeth upper globally and poor dentition all around) Heart: [id number] Lungs: cta b/l Assessment and Plan Assessment Anesthesia Assessment: Anesthesia Plan Discussed and Chart Reviewed Final Anesthetic Review Family History of Problems with Anesthesia: No History of Problems with Anesthesia: No NPO: Yes ASA Class: III Final Preanesthetic Review: No Changes in Pt Med Stat, Meds/Allgs Chart Reviewed, Consent Obtained/Reviewed and Anes Risks/Benef Reviewed Patient Risk: Intermediate Procedure Risk: Intermediate Assessment/Block/Sedation in SS: Assess/Block/Sedation-SS Anesthetic Plan Anesthetic Plan: GA and Agree w/ Assess. and Plan Disposition: Standard PACU
--- NOTE | 2023-05-20 07:48 | P.PCN_ITS ---
ECT Procedure Note Diagnosis/Treatment Date of Service: 05/20/23 Diagnosis: Major Depressive Disorder Current Treatment Number: 1 Treatment: Series Interval Clinical Notes: The patient was transferred from [facility] for ECT since he responded well in the past. On inital interview, the patietn is dysphoric, no records of previous ECTs. Right unilateral technique used, procedure done without any complications. Needed a dose of Propofol after ECT due to mild tachycardia. Woke up without any side effects, no post ECT agitation. Time: Total time managing care of this patient today __30__ minutes. ECT Settings Device: THYMATRON DGx Electrode Placement: Right Unilateral Program/Pulse Width: 0.25 Energy Percent: 40 Seizure Duration By EEG (in seconds): 40 Medications Administration General Anesthetic: Etomidate (14) Muscle Relaxant: Succinylcholine (100) Ancillary Medications Analgesics: Torodol - Pre ECT Anti-emetics: Zofran - Pre ECT Miscillaneous Medications: Propofol (30 post ECT) Airway Management Airway Management: Bag Mask Ventilation Treatment Recommendations No Changes Recommended: No change Pt Tolerated Procedure w/o Issue: Yes
--- NOTE | 2023-05-20 08:01 | HO.ANESPROP2 ---
REPLACED BY [facility] Active Problems Active Problems: All Active Problems (Updated 05/18/23 @ 16:31 by Samuel Booth MD) Major depression with psychotic features (Acute) Routine medical exam (Acute) Past Medical History Medical History HLD (hyperlipidemia) HTN (hypertension) Non-insulin dependent type 2 diabetes mellitus Family History Family history of problems with anesthesia: No Surgical History History of Problems with Anesthesia: No Social History Social History Household Members: Significant Other Housing: Apartment Do you presently have visiting nurse or other home services: No Patient Tobacco Use Status: Former Tobacco user Quit Date: 50 years ago Tobacco use type: Cigarette Smoked in Last 30 Days: No e-Cigarette/Vaping Use: Never Used Patient Interested in Nicotine Replacement: No Patient Given Instructions on How to Stop Smoking: No (n/a) Second Hand Smoke Exposure: No Use of substances other than those prescribed or required for medical reasons: Yes Substance Use Type: Marijuana Substance Use Frequency: Chronic Longstanding Last Used Substance Other:: month ago Currently Displaying Signs/Symptoms of Drug Intoxication Withdrawal: No Any prior treatment program specific to substance use: No Have you been hit, kicked, punched, or otherwise hurt by someone within the past year? If so, by whom?: No Do you feel safe in your current relationship?: Yes Is there a partner from a previous relationship who is making you feel unsafe now?: No Are you made to feel afraid or neglected: No Advance Directives: No Advance Directives Information Provided: No Do you have thoughts of harming others: None Do you have a plan to hurt others: No Plan Recently lost weight without trying: Yes How much weight loss: 14-23 pounds Eating poorly because of decreased appetite: No Nutrition screen score: 4 Nutrition Risks: Dental problems Poor oral hygiene: Yes service: No Sexual orientation: Straight/Heterosexual Meds Allergies Allergy/AdvReac Type Severity Reaction Status Date / Time Penicillins [PENICILLINS] Allergy Unknown rash Verified 05/17/23 22:12 Active Medications: Current Medications Acetaminophen (Acetaminophen 325 Mg Tablet) 650 mg PO Q6H PRN PRN Reason: Headache/Pain Mild Scale (1-3) Acetaminophen (Acetaminophen 325 Mg Tablet) 650 mg PO ONCE PRN PRN Reason: Pain, Mild (Pain Scale 1-3) Al Hydroxide/Mg Hydroxide (Magnesium Hydrox/Alum Hydrox 30 Ml Oral.Susp) 30 ml PO Q6H PRN PRN Reason: Heartburn/Nausea Atorvastatin Calcium (Atorvastatin Calcium 20 Mg Tablet) 20 mg PO DAILY [facility] Last Admin: 05/19/23 09:03 Dose: 20 mg Bupropion HCl (Bupropion Hcl Xl 150 Mg Tab.Er.24h) 150 mg PO DAILY [facility] Last Admin: 05/19/23 09:03 Dose: 150 mg Escitalopram Oxalate (Escitalopram Oxalate 10 Mg Tablet) 10 mg PO DAILY [facility] Last Admin: 05/19/23 09:03 Dose: 10 mg Folic Acid (Folic Acid 1 Mg Tablet) 1 mg PO DAILY [facility] Last Admin: 05/19/23 09:03 Dose: 1 mg Hydroxyzine HCl (Hydroxyzine Hcl 25 Mg Tablet) 25 mg PO Q6H PRN PRN Reason: Anxiety Lisinopril (Lisinopril 10 Mg Tablet) 10 mg PO DAILY [facility]; Protocol Last Admin: 05/19/23 11:25 Dose: 10 mg Magnesium Hydroxide (Milk Of Magnesia 30 Ml Oral.Susp) 30 ml PO DAILY PRN PRN Reason: Constipation Metformin HCl (Metformin Hcl 500 Mg Tablet) 500 mg PO BIDWM [facility] Last Admin: 05/19/23 16:20 Dose: 500 mg Multivitamins/Vitamin C (Multivitamin Tablet) 1 tab PO DAILY [facility] Last Admin: 05/19/23 09:04 Dose: 1 tab Olanzapine (Olanzapine 2.5 Mg Tablet) 2.5 mg PO DAILY [facility] Last Admin: 05/19/23 09:03 Dose: 2.5 mg Olanzapine (Olanzapine 7.5 Mg Tablet) 7.5 mg PO BEDTIME [facility] Last Admin: 05/19/23 21:18 Dose: 7.5 mg Ondansetron HCl (Ondansetron Hcl 4 Mg/2 Ml Vial) 4 mg IVPUSH ONCE PRN PRN Reason: Nausea and Vomiting Oxycodone HCl (Oxycodone Hcl Immed Release 5 Mg Tablet) 5 mg PO ONCE PRN PRN Reason: Pain, Severe (Pain Scale 7-10) Senna (Sennosides 8.6 Mg Tablet) 17.2 mg PO Q24H PRN PRN Reason: constipation Thiamine HCl (Thiamine Hcl 100 Mg Tablet) 100 mg PO DAILY [facility] Last Admin: 05/19/23 09:03 Dose: 100 mg Trazodone HCl (Trazodone Hcl 50 Mg Tablet) 50 mg PO BEDTIME MRX1 PRN PRN Reason: Insomnia Trazodone HCl (Trazodone Hcl 100 Mg Tablet) 100 mg PO BEDTIME [facility] Last Admin: 05/19/23 21:18 Dose: 100 mg Vitamin D (Cholecalciferol (Vitamin D3) 25 Mcg Tablet) 25 mcg PO DAILY [facility] Last Admin: 05/19/23 09:04 Dose: 25 mcg Home Medications Medication Instructions Recorded Confirmed Last Taken Type atorvastatin 20 mg tablet 20 mg PO DAILY 05/17/23 05/17/23 05/17/23 09:16 History bupropion HCl 150 mg 24 hr tablet, 150 mg PO QAM 05/17/23 05/17/23 05/17/23 09:16 History extended release cholecalciferol (vitamin D3) 25 25 mcg PO DAILY 05/17/23 05/17/23 05/17/23 09:16 History mcg (1,000 unit) tablet citalopram 20 mg tablet 20 mg PO DAILY 05/17/23 05/17/23 05/17/23 09:16 History lisinopril 10 mg tablet 10 mg PO DAILY 05/17/23 05/17/23 05/17/23 09:16 History metformin 500 mg tablet 500 mg PO BIDWMEAL 05/17/23 05/17/23 05/17/23 09:16 History multivitamin 1 tab PO DAILY 05/17/23 05/17/23 05/17/23 09:16 History olanzapine 2.5 mg tablet 2.5 mg PO DAILY 05/17/23 05/17/23 05/17/23 09:21 History olanzapine 7.5 mg tablet 7.5 mg PO BEDTIME 05/17/23 05/17/23 05/16/23 19:46 History trazodone 100 mg tablet 100 mg PO BEDTIME 05/17/23 05/17/23 05/16/23 19:46 History Exam Exam Date and Time: May 20, 2023 08 Height,Weight and Vital Signs: Height 5 ft 9 in Weight 75.438 kg Last Vital Signs Temp 98.2 F 05/20/23 07:52 Pulse 87 05/20/23 07:57 Resp 16 05/20/23 07:57 BP 197/105 H 05/20/23 07:57 Pulse Ox 98 05/20/23 07:57 O2 Del Method Nasal Cannula 05/20/23 07:57 O2 Flow Rate 2 05/20/23 07:57 Pertinent Lab Results Pertinent Lab Results: Laboratory Tests 05/18/23 05/18/23 05/18/23 08:18 10:11 14:50 WBC 11.8 H RBC 5.55 Hgb 17.2 Hct 48.2 MCV 86.8 MCH 31.0 MCHC 35.7 RDW 12.5 Plt Count 414 H MPV 8.5 L Immature Gran % (Auto) 0.3 Neut % (Auto) 80.0 H Lymph % (Auto) 9.4 L [place] % (Auto) 9.1 Eos % (Auto) 0.8 Baso % (Auto) 0.4 Lymph # (Auto) 1.1 L [place] # (Auto) 1.1 Eos # (Auto) 0.1 Baso # (Auto) 0.1 Abs Immat Gran (auto) 0.03 Absolute Neuts (auto) 9.5 H Absolute Nucleated RBC 0.000 Nucleated RBC % (auto) 0.0 Sodium 136 Potassium 4.3 Chloride 97 Carbon Dioxide 25 Anion Gap 18 BUN 18 H Creatinine 0.84 Estim Creat Clear Calc 79.4 Estimated GFR > 60 POC Glucose 99 Fasting Glucose 92 Calcium 10.1 Total Bilirubin 0.8 AST 25 ALT 30 Alkaline Phosphatase 112 Total Protein 7.3 Albumin 4.2 Triglycerides 75 Cholesterol 122 LDL Cholesterol, Calc 57 HDL Cholesterol 50 Vitamin B12 1394 H Folate 16.3 TSH 0.62 Urine Color Dark Yellow Urine Appearance Cloudy Urine pH 5.0 Ur Specific [place] >= 1.030 H Urine Protein Trace Urine Glucose (UA) Negative Urine Ketones 15 Urine Blood Negative Urine Nitrite Negative Ur Leukocyte Esterase Negative 05/19/23 05/20/23 07:57 07:27 WBC RBC Hgb Hct MCV MCH MCHC RDW Plt Count MPV Immature Gran % (Auto) Neut % (Auto) Lymph % (Auto) [place] % (Auto) Eos % (Auto) Baso % (Auto) Lymph # (Auto) [place] # (Auto) Eos # (Auto) Baso # (Auto) Abs Immat Gran (auto) Absolute Neuts (auto) Absolute Nucleated RBC Nucleated RBC % (auto) Sodium Potassium Chloride Carbon Dioxide Anion Gap BUN Creatinine Estim Creat Clear Calc Estimated GFR POC Glucose 104 110 Fasting Glucose Calcium Total Bilirubin AST ALT Alkaline Phosphatase Total Protein Albumin Triglycerides Cholesterol LDL Cholesterol, Calc HDL Cholesterol Vitamin B12 Folate TSH Urine Color Urine Appearance Urine pH Ur Specific [place] Urine Protein Urine Glucose (UA) Urine Ketones Urine Blood Urine Nitrite Ur Leukocyte Esterase Airway Mallampati Class: II TM Dist: >3cm Neck ROM: Full Heart: RRR Lungs: CTA Assessment and Plan Assessment Anesthesia Assessment: Anesthesia Plan Discussed Final Anesthetic Review Family History of Problems with Anesthesia: No History of Problems with Anesthesia: No ASA Class: III Final Preanesthetic Review: Meds/Allgs Chart Reviewed, Consent Obtained/Reviewed and Anes Risks/Benef Reviewed Patient Risk: Low Procedure Risk: Low Anesthetic Plan Anesthetic Plan: GA Disposition: Standard PACU
--- NOTE | 2023-05-20 08:03 | HO.POSTANES ---
Post Anesthesia Evaluation Post Anesthesia Evaluation Date of Service: 05/20/23 Vital Signs: Vital Signs Temp Pulse Resp BP Pulse Ox O2 Del Method O2 Flow Rate 05/20/23 07:57 87 16 197/105 H 98 Nasal Cannula 2 05/20/23 07:52 98.2 F 75 16 174/96 H 100 Nasal Cannula 2 05/20/23 07:26 97.1 F 85 14 148/81 H 97 Room Air 05/20/23 05:54 98.8 F 106 H 18 126/74 96 Room Air 05/20/23 05:54 98.8 F 106 H 18 126/74 96 Anesthesia: General Mental Status: Awake Pain Control: Satisfactory Nausea/Vomiting: None Hydration: Adequate Anesthesia-Related Issues: No Anes. Related Issues
[2023-05-20] MEDS: Escitalopram Oxalate 10 MG TABLET PO (08:58)
[2023-05-20] MEDS: Folic Acid 1 MG TABLET PO (08:58)
[2023-05-20] MEDS: Thiamine HCL 100 MG TABLET PO (08:58)
[2023-05-20] MEDS: OLANZapine 2.5 MG TABLET PO (08:59)
[2023-05-20] MEDS: lisinopriL 10 MG TABLET PO (08:59)
[2023-05-20] MEDS: Atorvastatin Calcium 20 MG TABLET PO (08:59)
[2023-05-20] MEDS: Cholecalciferol (Vitamin D3) 25 MCG TABLET PO (09:00)
[2023-05-20] MEDS: Multivitamin TABLET 1 TAB PO (09:00)
[2023-05-20] MEDS: buPROPion HCl XL 150 MG TAB.ER.24H PO (09:00)
[2023-05-20] MEDS: metFORMIN HCl 500 MG TABLET PO ×2 (09:00→18:35)
--- NOTE | 2023-05-20 15:50 | P.PNPSI_ITS ---
Subjective Subjective Date of Service: 05/20/23 Reason For Visit: Major Depressive Disorder Interim History: received first ECT today. no change. per staff, dep 8 anx 7. insomnia. decreased appetite, reporting 14 lb weight loss recently. Mental Status Exam Mental Status Exam Narrative: Pleasant. Engaged. Fairly presented. Organized. Depressed and anxious. No SI. No HI. No agitation. Endorses hearing sounds/hallucinations. Insight and judgment fair Diagnostics Vital Signs (24Hr): Vital Signs - 24 hr 05/19/23 18:30 05/20/23 05:54 05/20/23 05:54 Temperature 97.1 F 98.8 F 98.8 F Pulse Rate 58 106 H 106 H Respiratory Rate 16 18 18 Blood Pressure 136/87 126/74 126/74 Pulse Oximetry 97 96 96 Oxygen Delivery Method Room Air Room Air Oxygen Flow Rate 05/20/23 07:26 05/20/23 07:52 05/20/23 07:57 Temperature 97.1 F 98.2 F Pulse Rate 85 75 87 Respiratory Rate 14 16 16 Blood Pressure 148/81 H 174/96 H 197/105 H Pulse Oximetry 97 100 98 Oxygen Delivery Method Room Air Nasal Cannula Nasal Cannula Oxygen Flow Rate 2 2 05/20/23 08:00 05/20/23 08:02 05/20/23 08:07 Temperature Pulse Rate 83 90 90 Respiratory Rate 16 16 Blood Pressure 139/68 169/84 H 169/84 H Pulse Oximetry 97 98 Oxygen Delivery Method Nasal Cannula Nasal Cannula Oxygen Flow Rate 2 2 05/20/23 08:12 05/20/23 08:22 05/20/23 08:56 Temperature 97.2 F 97.3 F 97.0 F Pulse Rate 86 87 85 Respiratory Rate 16 16 16 Blood Pressure 177/92 H 170/87 H 154/80 H Pulse Oximetry 98 96 96 Oxygen Delivery Method Nasal Cannula Room Air Room Air Oxygen Flow Rate 2 BMI result Body Mass Index 24.6 Labs 05/18/23 10:11 05/18/23 10:11 Labs: Laboratory Results - last 48 hr 05/19/23 05/20/23 07:57 07:27 POC Glucose 104 110 Medications Medications Current Medications Acetaminophen (Acetaminophen 325 Mg Tablet) 650 mg PO Q6H PRN PRN Reason: Headache/Pain Mild Scale (1-3) Acetaminophen (Acetaminophen 325 Mg Tablet) 650 mg PO ONCE PRN PRN Reason: Pain, Mild (Pain Scale 1-3) Al Hydroxide/Mg Hydroxide (Magnesium Hydrox/Alum Hydrox 30 Ml Oral.Susp) 30 ml PO Q6H PRN PRN Reason: Heartburn/Nausea Atorvastatin Calcium (Atorvastatin Calcium 20 Mg Tablet) 20 mg PO DAILY [facility] Last Admin: 05/20/23 08:59 Dose: 20 mg Bupropion HCl (Bupropion Hcl Xl 150 Mg Tab.Er.24h) 150 mg PO DAILY [facility] Last Admin: 05/20/23 09:00 Dose: 150 mg Escitalopram Oxalate (Escitalopram Oxalate 10 Mg Tablet) 10 mg PO DAILY [facility] Last Admin: 05/20/23 08:58 Dose: 10 mg Folic Acid (Folic Acid 1 Mg Tablet) 1 mg PO DAILY [facility] Last Admin: 05/20/23 08:58 Dose: 1 mg Hydroxyzine HCl (Hydroxyzine Hcl 25 Mg Tablet) 25 mg PO Q6H PRN PRN Reason: Anxiety Lisinopril (Lisinopril 10 Mg Tablet) 10 mg PO DAILY [facility]; Protocol Last Admin: 05/20/23 08:59 Dose: 10 mg Magnesium Hydroxide (Milk Of Magnesia 30 Ml Oral.Susp) 30 ml PO DAILY PRN PRN Reason: Constipation Metformin HCl (Metformin Hcl 500 Mg Tablet) 500 mg PO BIDWM [facility] Last Admin: 05/20/23 09:00 Dose: 500 mg Multivitamins/Vitamin C (Multivitamin Tablet) 1 tab PO DAILY [facility] Last Admin: 05/20/23 09:00 Dose: 1 tab Olanzapine (Olanzapine 2.5 Mg Tablet) 2.5 mg PO DAILY [facility] Last Admin: 05/20/23 08:59 Dose: 2.5 mg Olanzapine (Olanzapine 7.5 Mg Tablet) 7.5 mg PO BEDTIME [facility] Last Admin: 05/19/23 21:18 Dose: 7.5 mg Ondansetron HCl (Ondansetron Hcl 4 Mg/2 Ml Vial) 4 mg IVPUSH ONCE PRN PRN Reason: Nausea and Vomiting Oxycodone HCl (Oxycodone Hcl Immed Release 5 Mg Tablet) 5 mg PO ONCE PRN PRN Reason: Pain, Severe (Pain Scale 7-10) Senna (Sennosides 8.6 Mg Tablet) 17.2 mg PO Q24H PRN PRN Reason: constipation Thiamine HCl (Thiamine Hcl 100 Mg Tablet) 100 mg PO DAILY [facility] Last Admin: 05/20/23 08:58 Dose: 100 mg Trazodone HCl (Trazodone Hcl 50 Mg Tablet) 50 mg PO BEDTIME MRX1 PRN PRN Reason: Insomnia Trazodone HCl (Trazodone Hcl 100 Mg Tablet) 100 mg PO BEDTIME [facility] Last Admin: 05/19/23 21:18 Dose: 100 mg Vitamin D (Cholecalciferol (Vitamin D3) 25 Mcg Tablet) 25 mcg PO DAILY [facility] Last Admin: 05/20/23 09:00 Dose: 25 mcg Allergies Allergies Allergy/AdvReac Type Severity Reaction Status Date / Time Penicillins [PENICILLINS] Allergy Unknown rash Verified 05/17/23 22:12 Assessment & Plan Assessment & Plan (1) Major depression with psychotic features: Status: Acute Code(s): F32.3 - Major depressive disorder, single episode, severe with psychotic features Assessment and Plan: 05/19: ECT to start Saturday05/20/23- confirmed with Dr. Garcia. NPO tonight and consents will be done pre ECT tomorrow 05/20: received ECT #1 without event. no change in presentation. continue current mgmt. UA NEG. thiamine and folate started as per medicine recommendation. Plan 72-year-old male with history of hyperlipidemia, hypertension, [id number] type 2 diabetes, and mood disorder admitted to Psychiatry from [facility] ED with consult placed to hospitalist service for medical H and P as well as ECT evaluation. #Mood disorder -plan per psychiatry -at this time no medical contraindication exists that would preclude patient from undergoing ect #Daily etoh use -drinks 1-2 etoh beverages daily -no evidence of withdrawal -plan per psychiatry, but would recommend thiamine and folic acid supplements -lfts normal #Positional lightheadness -no acute change -check orthostatic vitals -Recommend slow position changes #Decreased urinary output -suspect r/t bph -Check UA/uc to r/o infection, though otherwise asymptomatic -outpt follow up -can consider flomax, but may exacerbate lightheadedness #HTN -bp reasonably controlled -continue home meds #HLD -continue statin Will continue following for results. ED chart reviewed Reason for continued inpatient stay Substantial Risk for: harm to self, inability to function and rapid decompensation Time Spent With Patient Time: Total time managing care of this patient today __25__ minutes.
[2023-05-20] MEDS: Acetaminophen 325 MG TABLET 650 MG PO (20:15)
[2023-05-20] MEDS: OLANZapine 7.5 MG TABLET PO (20:19)
[2023-05-20] MEDS: traZODone HCL 100 MG TABLET PO (20:19)
[2023-05-20] MEDS: 0.9 % Sodium Chloride Flush 10 ML SYRINGE 5 ML IVFLUSH (20:46)
[2023-05-21] MEDS: 0.9 % Sodium Chloride Flush 10 ML SYRINGE 5 ML IVFLUSH ×2 (00:42→08:34)
[2023-05-21 06:00] VITALS: BP 142/74; PULSE 80; RESP 16; TEMP 36.2; O2SAT 94
[2023-05-21 08:00] VITALS: BP 142/74; PULSE 80
[2023-05-21 08:09] LABS: Glucose, Whole Blood 96 mg/dL (60-115)
[2023-05-21] MEDS: Escitalopram Oxalate 10 MG TABLET PO (08:31)
[2023-05-21] MEDS: buPROPion HCl XL 150 MG TAB.ER.24H PO (08:31)
[2023-05-21] MEDS: Multivitamin TABLET 1 TAB PO (08:31)
[2023-05-21] MEDS: lisinopriL 10 MG TABLET PO (08:32)
[2023-05-21] MEDS: Thiamine HCL 100 MG TABLET PO (08:32)
[2023-05-21] MEDS: Cholecalciferol (Vitamin D3) 25 MCG TABLET PO (08:32)
[2023-05-21] MEDS: Folic Acid 1 MG TABLET PO (08:32)
[2023-05-21] MEDS: OLANZapine 2.5 MG TABLET PO (08:32)
[2023-05-21] MEDS: Atorvastatin Calcium 20 MG TABLET PO (08:33)
[2023-05-21] MEDS: metFORMIN HCl 500 MG TABLET PO ×2 (08:33→18:27)
--- NOTE | 2023-05-21 15:52 | HO.PSYCHPN ---
Subjective Subjective Date of Service: 05/21/23 Reason For Visit: Major Depressive Disorder Interim History: perhaps slight improvement in mood, otherwise no change. per staff, ECT went well yesterday. had a visitor. taking meds. slept well. mild [place] eves. anx/dep medium. Mental Status Exam Mental Status Exam Narrative: Pleasant. Engaged. Fairly presented. Organized. mood possibly a little better. tired, anxious, depressed. No SI/HI/AVH expressed. Insight and judgment fair Diagnostics Vital Signs (24Hr): Vital Signs - 24 hr 05/20/23 19:45 05/21/23 06:00 05/21/23 08:00 Temperature 97.8 F 97.1 F Pulse Rate 94 80 80 Respiratory Rate 16 16 Blood Pressure 134/77 142/74 H 142/74 H Pulse Oximetry 97 94 Oxygen Delivery Method Room Air Room Air BMI result Body Mass Index 24.6 Labs 05/18/23 10:11 05/18/23 10:11 Labs: Laboratory Results - last 48 hr 05/20/23 05/21/23 07:27 08:03 POC Glucose 110 96 Medications Medications Current Medications Acetaminophen (Acetaminophen 325 Mg Tablet) 650 mg PO Q6H PRN PRN Reason: Headache/Pain Mild Scale (1-3) Last Admin: 05/20/23 20:15 Dose: 325 mg Acetaminophen (Acetaminophen 325 Mg Tablet) 650 mg PO ONCE PRN PRN Reason: Pain, Mild (Pain Scale 1-3) Al Hydroxide/Mg Hydroxide (Magnesium Hydrox/Alum Hydrox 30 Ml Oral.Susp) 30 ml PO Q6H PRN PRN Reason: Heartburn/Nausea Atorvastatin Calcium (Atorvastatin Calcium 20 Mg Tablet) 20 mg PO DAILY [facility] Last Admin: 05/21/23 08:33 Dose: 20 mg Bupropion HCl (Bupropion Hcl Xl 150 Mg Tab.Er.24h) 150 mg PO DAILY [facility] Last Admin: 05/21/23 08:31 Dose: 150 mg Escitalopram Oxalate (Escitalopram Oxalate 10 Mg Tablet) 10 mg PO DAILY [facility] Last Admin: 05/21/23 08:31 Dose: 10 mg Folic Acid (Folic Acid 1 Mg Tablet) 1 mg PO DAILY [facility] Last Admin: 05/21/23 08:32 Dose: 1 mg Hydroxyzine HCl (Hydroxyzine Hcl 25 Mg Tablet) 25 mg PO Q6H PRN PRN Reason: Anxiety Lisinopril (Lisinopril 10 Mg Tablet) 10 mg PO DAILY [facility]; Protocol Last Admin: 05/21/23 08:32 Dose: 10 mg Magnesium Hydroxide (Milk Of Magnesia 30 Ml Oral.Susp) 30 ml PO DAILY PRN PRN Reason: Constipation Metformin HCl (Metformin Hcl 500 Mg Tablet) 500 mg PO BIDWM [facility] Last Admin: 05/21/23 08:33 Dose: 500 mg Multivitamins/Vitamin C (Multivitamin Tablet) 1 tab PO DAILY [facility] Last Admin: 05/21/23 08:31 Dose: 1 tab Olanzapine (Olanzapine 2.5 Mg Tablet) 2.5 mg PO DAILY [facility] Last Admin: 05/21/23 08:32 Dose: 2.5 mg Olanzapine (Olanzapine 7.5 Mg Tablet) 7.5 mg PO BEDTIME [facility] Last Admin: 05/20/23 20:19 Dose: 7.5 mg Ondansetron HCl (Ondansetron Hcl 4 Mg/2 Ml Vial) 4 mg IVPUSH ONCE PRN PRN Reason: Nausea and Vomiting Oxycodone HCl (Oxycodone Hcl Immed Release 5 Mg Tablet) 5 mg PO ONCE PRN PRN Reason: Pain, Severe (Pain Scale 7-10) Senna (Sennosides 8.6 Mg Tablet) 17.2 mg PO Q24H PRN PRN Reason: constipation Sodium Chloride (0.9 % Sodium Chloride Flush 10 Ml Syringe) 2 ml IVFLUSH QSHIFT [facility] Thiamine HCl (Thiamine Hcl 100 Mg Tablet) 100 mg PO DAILY [facility] Last Admin: 05/21/23 08:32 Dose: 100 mg Trazodone HCl (Trazodone Hcl 50 Mg Tablet) 50 mg PO BEDTIME MRX1 PRN PRN Reason: Insomnia Trazodone HCl (Trazodone Hcl 100 Mg Tablet) 100 mg PO BEDTIME [facility] Last Admin: 05/20/23 20:19 Dose: 100 mg Vitamin D (Cholecalciferol (Vitamin D3) 25 Mcg Tablet) 25 mcg PO DAILY [facility] Last Admin: 05/21/23 08:32 Dose: 25 mcg Allergies Allergies Allergy/AdvReac Type Severity Reaction Status Date / Time Penicillins [PENICILLINS] Allergy Unknown rash Verified 05/17/23 22:12 Assessment & Plan Assessment & Plan (1) Major depression with psychotic features: Status: Acute Code(s): F32.3 - Major depressive disorder, single episode, severe with psychotic features Assessment and Plan: 05/19: ECT to start Saturday05/20/23- confirmed with Dr. Garcia. NPO tonight and consents will be done pre ECT tomorrow 05/20: received ECT #1 without event. no change in presentation. continue current mgmt. UA NEG. thiamine and folate started as per medicine recommendation. 05/21: ECT #2 tomorrow. stable. continue current mgmt. Plan 72-year-old male with history of hyperlipidemia, hypertension, [id number] type 2 diabetes, and mood disorder admitted to Psychiatry from [facility] ED with consult placed to hospitalist service for medical H and P as well as ECT evaluation. #Mood disorder -plan per psychiatry -at this time no medical contraindication exists that would preclude patient from undergoing ect #Daily etoh use -drinks 1-2 etoh beverages daily -no evidence of withdrawal -plan per psychiatry, but would recommend thiamine and folic acid supplements -lfts normal #Positional lightheadness -no acute change -check orthostatic vitals -Recommend slow position changes #Decreased urinary output -suspect r/t bph -Check UA/uc to r/o infection, though otherwise asymptomatic -outpt follow up -can consider flomax, but may exacerbate lightheadedness #HTN -bp reasonably controlled -continue home meds #HLD -continue statin Will continue following for results. ED chart reviewed Reason for continued inpatient stay Substantial Risk for: inability to function and rapid decompensation Time Spent With Patient Time: Total time managing care of this patient today __25__ minutes.
[2023-05-21] MEDS: 0.9 % Sodium Chloride Flush 10 ML SYRINGE 2 ML IVFLUSH ×2 (16:38→21:56)
[2023-05-21 18:00] VITALS: BP 122/64; PULSE 93; RESP 16; TEMP 36.6; O2SAT 97
[2023-05-21] MEDS: OLANZapine 7.5 MG TABLET PO (19:46)
[2023-05-21] MEDS: traZODone HCL 100 MG TABLET PO (19:47)
[2023-05-22] VITALS (9 sets, daily range): BP systolic 136–152; BP diastolic 73–86; PULSE 75–101; RESP 12–18; TEMP 36.2–36.9; O2SAT 95–99
[2023-05-22 06:38] LABS: Glucose, Whole Blood 108 mg/dL (60-115)
--- NOTE | 2023-05-22 07:01 | P.CONAN_ITS ---
[facility] Active Problems Active Problems: All Active Problems (Updated 05/18/23 @ 16:31 by Samuel Booth MD) Major depression with psychotic features (Acute) Routine medical exam (Acute) Past Medical History Medical History HLD (hyperlipidemia) HTN (hypertension) Non-insulin dependent type 2 diabetes mellitus Family History Family history of problems with anesthesia: No Surgical History History of Problems with Anesthesia: No Social History Social History Household Members: Significant Other Housing: Apartment Do you presently have visiting nurse or other home services: No Patient Tobacco Use Status: Former Tobacco user Quit Date: 50 years ago Tobacco use type: Cigarette Smoked in Last 30 Days: No e-Cigarette/Vaping Use: Never Used Patient Interested in Nicotine Replacement: No Patient Given Instructions on How to Stop Smoking: No (n/a) Second Hand Smoke Exposure: No Use of substances other than those prescribed or required for medical reasons: Yes Substance Use Type: Marijuana Substance Use Frequency: Chronic Longstanding Last Used Substance Other:: month ago Currently Displaying Signs/Symptoms of Drug Intoxication Withdrawal: No Any prior treatment program specific to substance use: No Have you been hit, kicked, punched, or otherwise hurt by someone within the past year? If so, by whom?: No Do you feel safe in your current relationship?: Yes Is there a partner from a previous relationship who is making you feel unsafe now?: No Are you made to feel afraid or neglected: No Advance Directives: No Advance Directives Information Provided: No Do you have thoughts of harming others: None Do you have a plan to hurt others: No Plan Recently lost weight without trying: Yes How much weight loss: 14-23 pounds Eating poorly because of decreased appetite: No Nutrition screen score: 4 Nutrition Risks: Dental problems Poor oral hygiene: Yes service: No Sexual orientation: Straight/Heterosexual Meds Allergies Allergy/AdvReac Type Severity Reaction Status Date / Time Penicillins [PENICILLINS] Allergy Unknown rash Verified 05/17/23 22:12 Active Medications: Current Medications Acetaminophen (Acetaminophen 325 Mg Tablet) 650 mg PO Q6H PRN PRN Reason: Headache/Pain Mild Scale (1-3) Last Admin: 05/20/23 20:15 Dose: 325 mg Acetaminophen (Acetaminophen 325 Mg Tablet) 650 mg PO ONCE PRN PRN Reason: Pain, Mild (Pain Scale 1-3) Al Hydroxide/Mg Hydroxide (Magnesium Hydrox/Alum Hydrox 30 Ml Oral.Susp) 30 ml PO Q6H PRN PRN Reason: Heartburn/Nausea Atorvastatin Calcium (Atorvastatin Calcium 20 Mg Tablet) 20 mg PO DAILY [facility] Last Admin: 05/21/23 08:33 Dose: 20 mg Bupropion HCl (Bupropion Hcl Xl 150 Mg Tab.Er.24h) 150 mg PO DAILY [facility] Last Admin: 05/21/23 08:31 Dose: 150 mg Escitalopram Oxalate (Escitalopram Oxalate 10 Mg Tablet) 10 mg PO DAILY [facility] Last Admin: 05/21/23 08:31 Dose: 10 mg Folic Acid (Folic Acid 1 Mg Tablet) 1 mg PO DAILY [facility] Last Admin: 05/21/23 08:32 Dose: 1 mg Hydroxyzine HCl (Hydroxyzine Hcl 25 Mg Tablet) 25 mg PO Q6H PRN PRN Reason: Anxiety Lactated Ringer's (Lr) 1,000 mls @ 50 mls/hr IVCONT .Q20H [facility] Lisinopril (Lisinopril 10 Mg Tablet) 10 mg PO DAILY [facility]; Protocol Last Admin: 05/21/23 08:32 Dose: 10 mg Magnesium Hydroxide (Milk Of Magnesia 30 Ml Oral.Susp) 30 ml PO DAILY PRN PRN Reason: Constipation Metformin HCl (Metformin Hcl 500 Mg Tablet) 500 mg PO BIDWM [facility] Last Admin: 05/21/23 18:27 Dose: 500 mg Multivitamins/Vitamin C (Multivitamin Tablet) 1 tab PO DAILY [facility] Last Admin: 05/21/23 08:31 Dose: 1 tab Olanzapine (Olanzapine 2.5 Mg Tablet) 2.5 mg PO DAILY [facility] Last Admin: 05/21/23 08:32 Dose: 2.5 mg Olanzapine (Olanzapine 7.5 Mg Tablet) 7.5 mg PO BEDTIME [facility] Last Admin: 05/21/23 19:46 Dose: 7.5 mg Ondansetron HCl (Ondansetron Hcl 4 Mg/2 Ml Vial) 4 mg IVPUSH ONCE PRN PRN Reason: Nausea and Vomiting Oxycodone HCl (Oxycodone Hcl Immed Release 5 Mg Tablet) 5 mg PO ONCE PRN PRN Reason: Pain, Severe (Pain Scale 7-10) Senna (Sennosides 8.6 Mg Tablet) 17.2 mg PO Q24H PRN PRN Reason: constipation Sodium Chloride (0.9 % Sodium Chloride Flush 10 Ml Syringe) 2 ml IVFLUSH QSHIFT [facility] Last Admin: 05/21/23 21:56 Dose: 2 ml Thiamine HCl (Thiamine Hcl 100 Mg Tablet) 100 mg PO DAILY [facility] Last Admin: 05/21/23 08:32 Dose: 100 mg Trazodone HCl (Trazodone Hcl 50 Mg Tablet) 50 mg PO BEDTIME MRX1 PRN PRN Reason: Insomnia Trazodone HCl (Trazodone Hcl 100 Mg Tablet) 100 mg PO BEDTIME [facility] Last Admin: 05/21/23 19:47 Dose: 100 mg Vitamin D (Cholecalciferol (Vitamin D3) 25 Mcg Tablet) 25 mcg PO DAILY [facility] Last Admin: 05/21/23 08:32 Dose: 25 mcg Home Medications Medication Instructions Recorded Confirmed Last Taken Type atorvastatin 20 mg tablet 20 mg PO DAILY 05/17/23 05/17/23 05/17/23 09:16 History bupropion HCl 150 mg 24 hr tablet, 150 mg PO QAM 05/17/23 05/17/23 05/17/23 09:16 History extended release cholecalciferol (vitamin D3) 25 25 mcg PO DAILY 05/17/23 05/17/23 05/17/23 09:16 History mcg (1,000 unit) tablet citalopram 20 mg tablet 20 mg PO DAILY 05/17/23 05/17/23 05/17/23 09:16 History lisinopril 10 mg tablet 10 mg PO DAILY 05/17/23 05/17/23 05/17/23 09:16 History metformin 500 mg tablet 500 mg PO BIDWMEAL 05/17/23 05/17/23 05/17/23 09:16 History multivitamin 1 tab PO DAILY 05/17/23 05/17/23 05/17/23 09:16 History olanzapine 2.5 mg tablet 2.5 mg PO DAILY 05/17/23 05/17/23 05/17/23 09:21 History olanzapine 7.5 mg tablet 7.5 mg PO BEDTIME 05/17/23 05/17/23 05/16/23 19:46 History trazodone 100 mg tablet 100 mg PO BEDTIME 05/17/23 05/17/23 05/16/23 19:46 History Exam Exam Date and Time: May 22, 2023 0701 Height,Weight and Vital Signs: Height 5 ft 9 in Weight 75.438 kg Last Vital Signs Temp 97.8 F 05/22/23 06:36 Pulse 90 05/22/23 06:36 Resp 17 05/22/23 06:36 BP 152/86 H 05/22/23 06:36 Pulse Ox 95 05/22/23 06:36 O2 Del Method Room Air 05/22/23 06:36 O2 Flow Rate 2 05/20/23 08:12 Pertinent Lab Results Pertinent Lab Results: Laboratory Tests 05/18/23 05/18/23 05/18/23 08:18 10:11 14:50 WBC 11.8 H RBC 5.55 Hgb 17.2 Hct 48.2 MCV 86.8 MCH 31.0 MCHC 35.7 RDW 12.5 Plt Count 414 H MPV 8.5 L Immature Gran % (Auto) 0.3 Neut % (Auto) 80.0 H Lymph % (Auto) 9.4 L [place] % (Auto) 9.1 Eos % (Auto) 0.8 Baso % (Auto) 0.4 Lymph # (Auto) 1.1 L [place] # (Auto) 1.1 Eos # (Auto) 0.1 Baso # (Auto) 0.1 Abs Immat Gran (auto) 0.03 Absolute Neuts (auto) 9.5 H Absolute Nucleated RBC 0.000 Nucleated RBC % (auto) 0.0 Sodium 136 Potassium 4.3 Chloride 97 Carbon Dioxide 25 Anion Gap 18 BUN 18 H Creatinine 0.84 Estim Creat Clear Calc 79.4 Estimated GFR > 60 POC Glucose 99 Fasting Glucose 92 Calcium 10.1 Total Bilirubin 0.8 AST 25 ALT 30 Alkaline Phosphatase 112 Total Protein 7.3 Albumin 4.2 Triglycerides 75 Cholesterol 122 LDL Cholesterol, Calc 57 HDL Cholesterol 50 Vitamin B12 1394 H Folate 16.3 TSH 0.62 Urine Color Dark Yellow Urine Appearance Cloudy Urine pH 5.0 Ur Specific [place] >= 1.030 H Urine Protein Trace Urine Glucose (UA) Negative Urine Ketones 15 Urine Blood Negative Urine Nitrite Negative Ur Leukocyte Esterase Negative 05/19/23 05/20/23 05/21/23 07:57 07:27 08:03 WBC RBC Hgb Hct MCV MCH MCHC RDW Plt Count MPV Immature Gran % (Auto) Neut % (Auto) Lymph % (Auto) [place] % (Auto) Eos % (Auto) Baso % (Auto) Lymph # (Auto) [place] # (Auto) Eos # (Auto) Baso # (Auto) Abs Immat Gran (auto) Absolute Neuts (auto) Absolute Nucleated RBC Nucleated RBC % (auto) Sodium Potassium Chloride Carbon Dioxide Anion Gap BUN Creatinine Estim Creat Clear Calc Estimated GFR POC Glucose 104 110 96 Fasting Glucose Calcium Total Bilirubin AST ALT Alkaline Phosphatase Total Protein Albumin Triglycerides Cholesterol LDL Cholesterol, Calc HDL Cholesterol Vitamin B12 Folate TSH Urine Color Urine Appearance Urine pH Ur Specific [place] Urine Protein Urine Glucose (UA) Urine Ketones Urine Blood Urine Nitrite Ur Leukocyte Esterase 05/22/23 06:35 WBC RBC Hgb Hct MCV MCH MCHC RDW Plt Count MPV Immature Gran % (Auto) Neut % (Auto) Lymph % (Auto) [place] % (Auto) Eos % (Auto) Baso % (Auto) Lymph # (Auto) [place] # (Auto) Eos # (Auto) Baso # (Auto) Abs Immat Gran (auto) Absolute Neuts (auto) Absolute Nucleated RBC Nucleated RBC % (auto) Sodium Potassium Chloride Carbon Dioxide Anion Gap BUN Creatinine Estim Creat Clear Calc Estimated GFR POC Glucose 108 Fasting Glucose Calcium Total Bilirubin AST ALT Alkaline Phosphatase Total Protein Albumin Triglycerides Cholesterol LDL Cholesterol, Calc HDL Cholesterol Vitamin B12 Folate TSH Urine Color Urine Appearance Urine pH Ur Specific [place] Urine Protein Urine Glucose (UA) Urine Ketones Urine Blood Urine Nitrite Ur Leukocyte Esterase Airway Mallampati Class: II (missing multiple teeth, top left, denies anything loose) TM Dist: >3cm Neck ROM: Full Heart: rrr Lungs: cta Assessment and Plan Assessment Anesthesia Assessment: Anesthesia Plan Discussed and Chart Reviewed Final Anesthetic Review Family History of Problems with Anesthesia: No History of Problems with Anesthesia: No NPO: Yes ASA Class: III Final Preanesthetic Review: No Changes in Pt Med Stat, Meds/Allgs Chart Reviewed and Consent Obtained/Reviewed Patient Risk: Intermediate Procedure Risk: Intermediate Anesthetic Plan Anesthetic Plan: GA Disposition: Standard PACU
--- NOTE | 2023-05-22 08:00 | MHC.SHP ---
Pre-Procedural Eval Section A Date of Service: 05/22/23 Changes since office visit: No Cold of Flu in the past 2 weeks, No New Medical Problems and No Changes in Medication The History & Physical has been completed within 30 days and I have reviewed it.: Yes Section B Chief Complaint: Major Depressive Disorder Allergies: Allergies Allergy/AdvReac Type Severity Reaction Status Date / Time Penicillins [PENICILLINS] Allergy Unknown rash Verified 05/17/23 22:12 Plan I have reviewed the history and physical and performed a pertinent physical examination on my patient. No changes have occurred unless specified. Time Spent With Patient Time: Total time managing care of this patient today ____ minutes.
--- NOTE | 2023-05-22 08:00 | HO.ECTPROC ---
ECT Procedure Note Diagnosis/Treatment Date of Service: 05/22/23 Diagnosis: Major Depressive Disorder Current Treatment Number: 2 Treatment: Series Interval Clinical Notes: pt tolerated 1 st ect hopeful will be helpful Time: Total time managing care of this patient today ____ minutes. ECT Settings Device: THYMATRON DGx Electrode Placement: Right Unilateral Program/Pulse Width: 0.25 Energy Percent: 45 Seizure Duration By EEG (in seconds): 29 Medications Administration General Anesthetic: Etomidate (14) Muscle Relaxant: Succinylcholine (100) Ancillary Medications Analgesics: Torodol - Pre ECT (15) Anti-emetics: Zofran - Pre ECT Miscillaneous Medications: Propofol (30 post ECT) Airway Management Airway Management: Bag Mask Ventilation Treatment Recommendations No Changes Recommended: No change Notes: could decrease etom 12 mg Pt Tolerated Procedure w/o Issue: Yes
[2023-05-22] MEDS: buPROPion HCl XL 150 MG TAB.ER.24H PO (09:33)
[2023-05-22] MEDS: Multivitamin TABLET 1 TAB PO (09:33)
[2023-05-22] MEDS: Atorvastatin Calcium 20 MG TABLET PO (09:34)
[2023-05-22] MEDS: Thiamine HCL 100 MG TABLET PO (09:34)
[2023-05-22] MEDS: Escitalopram Oxalate 10 MG TABLET PO (09:34)
[2023-05-22] MEDS: metFORMIN HCl 500 MG TABLET PO ×2 (09:34→17:58)
[2023-05-22] MEDS: Folic Acid 1 MG TABLET PO (09:34)
[2023-05-22] MEDS: Cholecalciferol (Vitamin D3) 25 MCG TABLET PO (09:34)
[2023-05-22] MEDS: lisinopriL 10 MG TABLET PO (09:35)
[2023-05-22] MEDS: OLANZapine 2.5 MG TABLET PO (09:35)
[2023-05-22] MEDS: 0.9 % Sodium Chloride Flush 10 ML SYRINGE 2 ML IVFLUSH ×3 (09:41→23:23)
--- NOTE | 2023-05-22 15:42 | HO.PSYCHPN ---
Subjective Subjective Date of Service: 05/22/23 Reason For Visit: Major Depressive Disorder Interim History: calm, cooperative. feeling slightly better than admission. no issues post-ECT today. per staff, 01/12 anx/dep. not attending groups. no SI/HI/AVH. taking meds. appeared to sleep. ECT today without issues. Mental Status Exam Mental Status Exam Narrative: Pleasant. Engaged. Fairly presented. Organized. mood a little better. No SI/HI/AVH expressed. Insight and judgment fair Diagnostics Vital Signs (24Hr): Vital Signs - 24 hr 05/21/23 18:00 05/22/23 06:11 05/22/23 06:36 Temperature 97.9 F 97.1 F 97.8 F Pulse Rate 93 84 90 Respiratory Rate 16 18 17 Blood Pressure 122/64 144/74 H 152/86 H Pulse Oximetry 97 97 95 Oxygen Delivery Method Room Air Room Air Oxygen Flow Rate 05/22/23 08:00 05/22/23 08:30 05/22/23 08:35 Temperature 98.4 F Pulse Rate 80 88 75 Respiratory Rate 18 15 Blood Pressure 144/73 H 150/81 H 140/84 H Pulse Oximetry 99 98 Oxygen Delivery Method Nasal Cannula with ETCO2 Nasal Cannula with ETCO2 Oxygen Flow Rate 2 2 05/22/23 08:40 05/22/23 08:45 05/22/23 09:00 Temperature 98.4 F Pulse Rate 78 101 H 89 Respiratory Rate 12 12 16 Blood Pressure 136/78 139/84 140/78 H Pulse Oximetry 97 96 96 Oxygen Delivery Method Room Air Room Air Room Air Oxygen Flow Rate BMI result Body Mass Index 24.6 Labs 05/18/23 10:11 05/18/23 10:11 Labs: Laboratory Results - last 48 hr 05/21/23 05/22/23 08:03 06:35 POC Glucose 96 108 Medications Medications Current Medications Acetaminophen (Acetaminophen 325 Mg Tablet) 650 mg PO Q6H PRN PRN Reason: Headache/Pain Mild Scale (1-3) Last Admin: 05/20/23 20:15 Dose: 325 mg Acetaminophen (Acetaminophen 325 Mg Tablet) 650 mg PO ONCE PRN PRN Reason: Pain, Mild (Pain Scale 1-3) Al Hydroxide/Mg Hydroxide (Magnesium Hydrox/Alum Hydrox 30 Ml Oral.Susp) 30 ml PO Q6H PRN PRN Reason: Heartburn/Nausea Atorvastatin Calcium (Atorvastatin Calcium 20 Mg Tablet) 20 mg PO DAILY [facility] Last Admin: 05/22/23 09:34 Dose: 20 mg Bupropion HCl (Bupropion Hcl Xl 150 Mg Tab.Er.24h) 150 mg PO DAILY [facility] Last Admin: 05/22/23 09:33 Dose: 150 mg Escitalopram Oxalate (Escitalopram Oxalate 10 Mg Tablet) 10 mg PO DAILY [facility] Last Admin: 05/22/23 09:34 Dose: 10 mg Folic Acid (Folic Acid 1 Mg Tablet) 1 mg PO DAILY [facility] Last Admin: 05/22/23 09:34 Dose: 1 mg Hydroxyzine HCl (Hydroxyzine Hcl 25 Mg Tablet) 25 mg PO Q6H PRN PRN Reason: Anxiety Lisinopril (Lisinopril 10 Mg Tablet) 10 mg PO DAILY [facility]; Protocol Last Admin: 05/22/23 09:35 Dose: 10 mg Magnesium Hydroxide (Milk Of Magnesia 30 Ml Oral.Susp) 30 ml PO DAILY PRN PRN Reason: Constipation Metformin HCl (Metformin Hcl 500 Mg Tablet) 500 mg PO BIDWM [facility] Last Admin: 05/22/23 09:34 Dose: 500 mg Multivitamins/Vitamin C (Multivitamin Tablet) 1 tab PO DAILY [facility] Last Admin: 05/22/23 09:33 Dose: 1 tab Olanzapine (Olanzapine 2.5 Mg Tablet) 2.5 mg PO DAILY [facility] Last Admin: 05/22/23 09:35 Dose: 2.5 mg Olanzapine (Olanzapine 7.5 Mg Tablet) 7.5 mg PO BEDTIME [facility] Last Admin: 05/21/23 19:46 Dose: 7.5 mg Ondansetron HCl (Ondansetron Hcl 4 Mg/2 Ml Vial) 4 mg IVPUSH ONCE PRN PRN Reason: Nausea and Vomiting Oxycodone HCl (Oxycodone Hcl Immed Release 5 Mg Tablet) 5 mg PO ONCE PRN PRN Reason: Pain, Severe (Pain Scale 7-10) Senna (Sennosides 8.6 Mg Tablet) 17.2 mg PO Q24H PRN PRN Reason: constipation Sodium Chloride (0.9 % Sodium Chloride Flush 10 Ml Syringe) 2 ml IVFLUSH QSHIFT [facility] Last Admin: 05/22/23 09:41 Dose: 2 ml Thiamine HCl (Thiamine Hcl 100 Mg Tablet) 100 mg PO DAILY [facility] Last Admin: 05/22/23 09:34 Dose: 100 mg Trazodone HCl (Trazodone Hcl 50 Mg Tablet) 50 mg PO BEDTIME [id number] PRN PRN Reason: Insomnia Trazodone HCl (Trazodone Hcl 100 Mg Tablet) 100 mg PO BEDTIME [facility] Last Admin: 05/21/23 19:47 Dose: 100 mg Vitamin D (Cholecalciferol (Vitamin D3) 25 Mcg Tablet) 25 mcg PO DAILY [facility] Last Admin: 05/22/23 09:34 Dose: 25 mcg Allergies Allergies Allergy/AdvReac Type Severity Reaction Status Date / Time Penicillins [PENICILLINS] Allergy Unknown rash Verified 05/17/23 22:12 Assessment & Plan Assessment & Plan (1) Major depression with psychotic features: Status: Acute Code(s): F32.3 - Major depressive disorder, single episode, severe with psychotic features Plan 05/19: ECT to start Saturday05/20/23- confirmed with Dr. Garcia. NPO tonight and consents will be done pre ECT tomorrow 05/20: received ECT #1 without event. no change in presentation. continue current mgmt. UA NEG. thiamine and folate started as per medicine recommendation. 05/21: ECT #2 tomorrow. stable. continue current mgmt. 05/22: ECT #2 completed, #3 scheduled for saturday. slight improvement in mood from admission. continue current mgmt. Reason for continued inpatient stay Substantial Risk for: inability to function and rapid decompensation Time Spent With Patient Time: Total time managing care of this patient today ____ minutes.
[2023-05-22] MEDS: traZODone HCL 100 MG TABLET PO (23:15)
[2023-05-22] MEDS: OLANZapine 7.5 MG TABLET PO (23:16)
[2023-05-23 07:00] VITALS: BMI 24.1
[2023-05-23 08:15] VITALS: BP 122/72; PULSE 91; RESP 20; TEMP 36.4; O2SAT 97
[2023-05-23] MEDS: metFORMIN HCl 500 MG TABLET PO ×2 (08:19→16:50)
[2023-05-23] MEDS: Atorvastatin Calcium 20 MG TABLET PO (08:20)
[2023-05-23] MEDS: lisinopriL 10 MG TABLET PO (08:20)
[2023-05-23] MEDS: Cholecalciferol (Vitamin D3) 25 MCG TABLET PO (08:20)
[2023-05-23] MEDS: OLANZapine 2.5 MG TABLET PO (08:23)
[2023-05-23] MEDS: Escitalopram Oxalate 10 MG TABLET PO (08:23)
[2023-05-23] MEDS: buPROPion HCl XL 150 MG TAB.ER.24H PO (08:23)
[2023-05-23] MEDS: Thiamine HCL 100 MG TABLET PO (08:23)
[2023-05-23] MEDS: Folic Acid 1 MG TABLET PO (08:24)
[2023-05-23] MEDS: Multivitamin TABLET 1 TAB PO (08:27)
[2023-05-23 10:54] LABS: Glucose, Whole Blood 105 mg/dL (60-115)
--- NOTE | 2023-05-23 15:05 | HO.PSYCHPN ---
Subjective Subjective Date of Service: 05/23/23 Reason For Visit: Major Depressive Disorder Interim History: calm, soft-spoken, isolative. minimal change in Sx. ECT tomorrow. per staff, poor appetite yesterday. anx/dep 6. no SI/AVH. slept 2nd and 3rd shifts. orthostatic VS POS. encouraging fluids. Mental Status Exam Mental Status Exam Narrative: Pleasant. Engaged. Fairly presented. Organized. mood a little better. No SI/HI/AVH expressed. Insight and judgment fair Diagnostics Vital Signs (24Hr): Vital Signs - 24 hr 05/22/23 19:55 05/23/23 08:15 05/23/23 08:15 Temperature 97.5 F 97.6 F Pulse Rate 78 91 91 Respiratory Rate 18 20 Blood Pressure 137/77 122/72 122/72 Pulse Oximetry 98 97 Oxygen Delivery Method Room Air Room Air BMI result Body Mass Index 24.1 Labs 05/18/23 10:11 05/18/23 10:11 Labs: Laboratory Results - last 48 hr 05/22/23 05/23/23 06:35 10:48 POC Glucose 108 105 Medications Medications Current Medications Acetaminophen (Acetaminophen 325 Mg Tablet) 650 mg PO Q6H PRN PRN Reason: Headache/Pain Mild Scale (1-3) Last Admin: 05/20/23 20:15 Dose: 325 mg Acetaminophen (Acetaminophen 325 Mg Tablet) 650 mg PO ONCE PRN PRN Reason: Pain, Mild (Pain Scale 1-3) Al Hydroxide/Mg Hydroxide (Magnesium Hydrox/Alum Hydrox 30 Ml Oral.Susp) 30 ml PO Q6H PRN PRN Reason: Heartburn/Nausea Atorvastatin Calcium (Atorvastatin Calcium 20 Mg Tablet) 20 mg PO DAILY [facility] Last Admin: 05/23/23 08:20 Dose: 20 mg Bupropion HCl (Bupropion Hcl Xl 150 Mg Tab.Er.24h) 150 mg PO DAILY [facility] Last Admin: 05/23/23 08:23 Dose: 150 mg Escitalopram Oxalate (Escitalopram Oxalate 10 Mg Tablet) 10 mg PO DAILY [facility] Last Admin: 05/23/23 08:23 Dose: 10 mg Folic Acid (Folic Acid 1 Mg Tablet) 1 mg PO DAILY [facility] Last Admin: 05/23/23 08:24 Dose: 1 mg Hydroxyzine HCl (Hydroxyzine Hcl 25 Mg Tablet) 25 mg PO Q6H PRN PRN Reason: Anxiety Lisinopril (Lisinopril 10 Mg Tablet) 10 mg PO DAILY [facility]; Protocol Last Admin: 05/23/23 08:20 Dose: 10 mg Magnesium Hydroxide (Milk Of Magnesia 30 Ml Oral.Susp) 30 ml PO DAILY PRN PRN Reason: Constipation Metformin HCl (Metformin Hcl 500 Mg Tablet) 500 mg PO BIDWM [facility] Last Admin: 05/23/23 08:19 Dose: 500 mg Multivitamins/Vitamin C (Multivitamin Tablet) 1 tab PO DAILY [facility] Last Admin: 05/23/23 08:27 Dose: 1 tab Olanzapine (Olanzapine 2.5 Mg Tablet) 2.5 mg PO DAILY [facility] Last Admin: 05/23/23 08:23 Dose: 2.5 mg Olanzapine (Olanzapine 7.5 Mg Tablet) 7.5 mg PO BEDTIME [facility] Last Admin: 05/22/23 23:16 Dose: 7.5 mg Ondansetron HCl (Ondansetron Hcl 4 Mg/2 Ml Vial) 4 mg IVPUSH ONCE PRN PRN Reason: Nausea and Vomiting Oxycodone HCl (Oxycodone Hcl Immed Release 5 Mg Tablet) 5 mg PO ONCE PRN PRN Reason: Pain, Severe (Pain Scale 7-10) Senna (Sennosides 8.6 Mg Tablet) 17.2 mg PO Q24H PRN PRN Reason: constipation Thiamine HCl (Thiamine Hcl 100 Mg Tablet) 100 mg PO DAILY [facility] Last Admin: 05/23/23 08:23 Dose: 100 mg Trazodone HCl (Trazodone Hcl 50 Mg Tablet) 50 mg PO BEDTIME [id number] PRN PRN Reason: Insomnia Trazodone HCl (Trazodone Hcl 100 Mg Tablet) 100 mg PO BEDTIME [facility] Last Admin: 05/22/23 23:15 Dose: 100 mg Vitamin D (Cholecalciferol (Vitamin D3) 25 Mcg Tablet) 25 mcg PO DAILY [facility] Last Admin: 05/23/23 08:20 Dose: 25 mcg Allergies Allergies Allergy/AdvReac Type Severity Reaction Status Date / Time Penicillins [PENICILLINS] Allergy Unknown rash Verified 05/17/23 22:12 Assessment & Plan Assessment & Plan (1) Major depression with psychotic features: Status: Acute Code(s): F32.3 - Major depressive disorder, single episode, severe with psychotic features Plan 05/19: ECT to start Saturday05/20/23- confirmed with Dr. Garcia. NPO tonight and consents will be done pre ECT tomorrow 05/20: received ECT #1 without event. no change in presentation. continue current mgmt. UA NEG. thiamine and folate started as per medicine recommendation. 05/21: ECT #2 tomorrow. stable. continue current mgmt. 05/22: ECT #2 completed, #3 scheduled for saturday. slight improvement in mood from admission. continue current mgmt. 05/23: stable. ECT #3 tomorrow. continue current mgmt. Reason for continued inpatient stay Substantial Risk for: harm to self, inability to function and rapid decompensation Time Spent With Patient Time: Total time managing care of this patient today __25__ minutes.
[2023-05-23 20:11] VITALS: BP 113/67; PULSE 86; RESP 16; TEMP 36.3; O2SAT 96
[2023-05-23] MEDS: OLANZapine 7.5 MG TABLET PO (23:09)
[2023-05-23] MEDS: traZODone HCL 100 MG TABLET PO (23:10)
[2023-05-24] VITALS (11 sets, daily range): BP systolic 107–167; BP diastolic 68–93; PULSE 81–95; RESP 16–23; TEMP 36.1–36.7; O2SAT 95–98
[2023-05-24 08:11] LABS: Glucose, Whole Blood 86 mg/dL (60-115)
--- NOTE | 2023-05-24 09:02 | HO.ANESPROP2 ---
[facility] Active Problems Active Problems: All Active Problems (Updated 05/18/23 @ 16:31 by Samuel Booth MD) Major depression with psychotic features (Acute) Routine medical exam (Acute) Past Medical History Medical History HLD (hyperlipidemia) HTN (hypertension) Non-insulin dependent type 2 diabetes mellitus Family History Family history of problems with anesthesia: No Surgical History History of Problems with Anesthesia: No Social History Social History Household Members: Significant Other Housing: Apartment Do you presently have visiting nurse or other home services: No Patient Tobacco Use Status: Former Tobacco user Quit Date: 50 years ago Tobacco use type: Cigarette Smoked in Last 30 Days: No e-Cigarette/Vaping Use: Never Used Patient Interested in Nicotine Replacement: No Patient Given Instructions on How to Stop Smoking: No (n/a) Second Hand Smoke Exposure: No Use of substances other than those prescribed or required for medical reasons: Yes Substance Use Type: Marijuana Substance Use Frequency: Chronic Longstanding Last Used Substance Other:: month ago Currently Displaying Signs/Symptoms of Drug Intoxication Withdrawal: No Any prior treatment program specific to substance use: No Have you been hit, kicked, punched, or otherwise hurt by someone within the past year? If so, by whom?: No Do you feel safe in your current relationship?: Yes Is there a partner from a previous relationship who is making you feel unsafe now?: No Are you made to feel afraid or neglected: No Advance Directives: No Advance Directives Information Provided: No Do you have thoughts of harming others: None Do you have a plan to hurt others: No Plan Recently lost weight without trying: Yes How much weight loss: 14-23 pounds Eating poorly because of decreased appetite: No Nutrition screen score: 4 Nutrition Risks: Dental problems Poor oral hygiene: Yes service: No Sexual orientation: Straight/Heterosexual Meds Allergies Allergy/AdvReac Type Severity Reaction Status Date / Time Penicillins [PENICILLINS] Allergy Unknown rash Verified 05/17/23 22:12 Active Medications: Current Medications Acetaminophen (Acetaminophen 325 Mg Tablet) 650 mg PO Q6H PRN PRN Reason: Headache/Pain Mild Scale (1-3) Last Admin: 05/20/23 20:15 Dose: 325 mg Acetaminophen (Acetaminophen 325 Mg Tablet) 650 mg PO ONCE PRN PRN Reason: Pain, Mild (Pain Scale 1-3) Al Hydroxide/Mg Hydroxide (Magnesium Hydrox/Alum Hydrox 30 Ml Oral.Susp) 30 ml PO Q6H PRN PRN Reason: Heartburn/Nausea Atorvastatin Calcium (Atorvastatin Calcium 20 Mg Tablet) 20 mg PO DAILY [facility] Last Admin: 05/23/23 08:20 Dose: 20 mg Bupropion HCl (Bupropion Hcl Xl 150 Mg Tab.Er.24h) 150 mg PO DAILY [facility] Last Admin: 05/23/23 08:23 Dose: 150 mg Escitalopram Oxalate (Escitalopram Oxalate 10 Mg Tablet) 10 mg PO DAILY [facility] Last Admin: 05/23/23 08:23 Dose: 10 mg Folic Acid (Folic Acid 1 Mg Tablet) 1 mg PO DAILY [facility] Last Admin: 05/23/23 08:24 Dose: 1 mg Hydroxyzine HCl (Hydroxyzine Hcl 25 Mg Tablet) 25 mg PO Q6H PRN PRN Reason: Anxiety Lactated Ringer's (Lr) 1,000 mls @ 50 mls/hr IVCONT .Q20H [facility] Lisinopril (Lisinopril 10 Mg Tablet) 10 mg PO DAILY [facility]; Protocol Last Admin: 05/23/23 08:20 Dose: 10 mg Magnesium Hydroxide (Milk Of Magnesia 30 Ml Oral.Susp) 30 ml PO DAILY PRN PRN Reason: Constipation Metformin HCl (Metformin Hcl 500 Mg Tablet) 500 mg PO BIDWM [facility] Last Admin: 05/23/23 16:50 Dose: 500 mg Multivitamins/Vitamin C (Multivitamin Tablet) 1 tab PO DAILY [facility] Last Admin: 05/23/23 08:27 Dose: 1 tab Olanzapine (Olanzapine 2.5 Mg Tablet) 2.5 mg PO DAILY [facility] Last Admin: 05/23/23 08:23 Dose: 2.5 mg Olanzapine (Olanzapine 7.5 Mg Tablet) 7.5 mg PO BEDTIME [facility] Last Admin: 05/23/23 23:09 Dose: 7.5 mg Ondansetron HCl (Ondansetron Hcl 4 Mg/2 Ml Vial) 4 mg IVPUSH ONCE PRN PRN Reason: Nausea and Vomiting Oxycodone HCl (Oxycodone Hcl Immed Release 5 Mg Tablet) 5 mg PO ONCE PRN PRN Reason: Pain, Severe (Pain Scale 7-10) Senna (Sennosides 8.6 Mg Tablet) 17.2 mg PO Q24H PRN PRN Reason: constipation Thiamine HCl (Thiamine Hcl 100 Mg Tablet) 100 mg PO DAILY [facility] Last Admin: 05/23/23 08:23 Dose: 100 mg Trazodone HCl (Trazodone Hcl 50 Mg Tablet) 50 mg PO BEDTIME MRX1 PRN PRN Reason: Insomnia Trazodone HCl (Trazodone Hcl 100 Mg Tablet) 100 mg PO BEDTIME [facility] Last Admin: 05/23/23 23:10 Dose: 100 mg Vitamin D (Cholecalciferol (Vitamin D3) 25 Mcg Tablet) 25 mcg PO DAILY [facility] Last Admin: 05/23/23 08:20 Dose: 25 mcg Home Medications Medication Instructions Recorded Confirmed Last Taken Type atorvastatin 20 mg tablet 20 mg PO DAILY 05/17/23 05/17/23 05/17/23 09:16 History bupropion HCl 150 mg 24 hr tablet, 150 mg PO QAM 05/17/23 05/17/23 05/17/23 09:16 History extended release cholecalciferol (vitamin D3) 25 25 mcg PO DAILY 05/17/23 05/17/23 05/17/23 09:16 History mcg (1,000 unit) tablet citalopram 20 mg tablet 20 mg PO DAILY 05/17/23 05/17/23 05/17/23 09:16 History lisinopril 10 mg tablet 10 mg PO DAILY 05/17/23 05/17/23 05/17/23 09:16 History metformin 500 mg tablet 500 mg PO BIDWMEAL 05/17/23 05/17/23 05/17/23 09:16 History multivitamin 1 tab PO DAILY 05/17/23 05/17/23 05/17/23 09:16 History olanzapine 2.5 mg tablet 2.5 mg PO DAILY 05/17/23 05/17/23 05/17/23 09:21 History olanzapine 7.5 mg tablet 7.5 mg PO BEDTIME 05/17/23 05/17/23 05/16/23 19:46 History trazodone 100 mg tablet 100 mg PO BEDTIME 05/17/23 05/17/23 05/16/23 19:46 History Exam Exam Date and Time: May 24, [id number] Height,Weight and Vital Signs: Height 5 ft 9 in Weight 74.096 kg Last Vital Signs Temp 97 F 05/24/23 08:36 Pulse 86 05/24/23 08:36 Resp 16 05/24/23 08:36 BP 166/82 H 05/24/23 08:36 Pulse Ox 98 05/24/23 08:36 O2 Del Method Room Air 05/24/23 08:36 O2 Flow Rate 2 05/22/23 08:35 Pertinent Lab Results Pertinent Lab Results: Laboratory Tests 05/18/23 05/18/23 05/18/23 08:18 10:11 14:50 WBC 11.8 H RBC 5.55 Hgb 17.2 Hct 48.2 MCV 86.8 MCH 31.0 MCHC 35.7 RDW 12.5 Plt Count 414 H MPV 8.5 L Immature Gran % (Auto) 0.3 Neut % (Auto) 80.0 H Lymph % (Auto) 9.4 L [place] % (Auto) 9.1 Eos % (Auto) 0.8 Baso % (Auto) 0.4 Lymph # (Auto) 1.1 L [place] # (Auto) 1.1 Eos # (Auto) 0.1 Baso # (Auto) 0.1 Abs Immat Gran (auto) 0.03 Absolute Neuts (auto) 9.5 H Absolute Nucleated RBC 0.000 Nucleated RBC % (auto) 0.0 Sodium 136 Potassium 4.3 Chloride 97 Carbon Dioxide 25 Anion Gap 18 BUN 18 H Creatinine 0.84 Estim Creat Clear Calc 79.4 Estimated GFR > 60 POC Glucose 99 Fasting Glucose 92 Calcium 10.1 Total Bilirubin 0.8 AST 25 ALT 30 Alkaline Phosphatase 112 Total Protein 7.3 Albumin 4.2 Triglycerides 75 Cholesterol 122 LDL Cholesterol, Calc 57 HDL Cholesterol 50 Vitamin B12 1394 H Folate 16.3 TSH 0.62 Urine Color Dark Yellow Urine Appearance Cloudy Urine pH 5.0 Ur Specific [place] >= 1.030 H Urine Protein Trace Urine Glucose (UA) Negative Urine Ketones 15 Urine Blood Negative Urine Nitrite Negative Ur Leukocyte Esterase Negative 05/19/23 05/20/23 05/21/23 07:57 07:27 08:03 WBC RBC Hgb Hct MCV MCH MCHC RDW Plt Count MPV Immature Gran % (Auto) Neut % (Auto) Lymph % (Auto) [place] % (Auto) Eos % (Auto) Baso % (Auto) Lymph # (Auto) [place] # (Auto) Eos # (Auto) Baso # (Auto) Abs Immat Gran (auto) Absolute Neuts (auto) Absolute Nucleated RBC Nucleated RBC % (auto) Sodium Potassium Chloride Carbon Dioxide Anion Gap BUN Creatinine Estim Creat Clear Calc Estimated GFR POC Glucose 104 110 96 Fasting Glucose Calcium Total Bilirubin AST ALT Alkaline Phosphatase Total Protein Albumin Triglycerides Cholesterol LDL Cholesterol, Calc HDL Cholesterol Vitamin B12 Folate TSH Urine Color Urine Appearance Urine pH Ur Specific [place] Urine Protein Urine Glucose (UA) Urine Ketones Urine Blood Urine Nitrite Ur Leukocyte Esterase 05/22/23 05/23/23 05/24/23 06:35 10:48 08:01 WBC RBC Hgb Hct MCV MCH MCHC RDW Plt Count MPV Immature Gran % (Auto) Neut % (Auto) Lymph % (Auto) [place] % (Auto) Eos % (Auto) Baso % (Auto) Lymph # (Auto) [place] # (Auto) Eos # (Auto) Baso # (Auto) Abs Immat Gran (auto) Absolute Neuts (auto) Absolute Nucleated RBC Nucleated RBC % (auto) Sodium Potassium Chloride Carbon Dioxide Anion Gap BUN Creatinine Estim Creat Clear Calc Estimated GFR POC Glucose 108 105 86 Fasting Glucose Calcium Total Bilirubin AST ALT Alkaline Phosphatase Total Protein Albumin Triglycerides Cholesterol LDL Cholesterol, Calc HDL Cholesterol Vitamin B12 Folate TSH Urine Color Urine Appearance Urine pH Ur Specific [place] Urine Protein Urine Glucose (UA) Urine Ketones Urine Blood Urine Nitrite Ur Leukocyte Esterase Airway Mallampati Class: II (missing teeth on the bottom) TM Dist: >3cm Neck ROM: Full Partial: Upper Heart: rrr Lungs: cta Assessment and Plan Assessment Anesthesia Assessment: Anesthesia Plan Discussed and Chart Reviewed Final Anesthetic Review Family History of Problems with Anesthesia: No History of Problems with Anesthesia: No NPO: Yes ASA Class: III Final Preanesthetic Review: No Changes in Pt Med Stat, Meds/Allgs Chart Reviewed and Consent Obtained/Reviewed Patient Risk: Intermediate Procedure Risk: Intermediate Anesthetic Plan Anesthetic Plan: GA Disposition: Standard PACU
--- NOTE | 2023-05-24 10:02 | MHC.SHP ---
Pre-Procedural Eval Section A Date of Service: 05/24/23 The patient is an INPATIENT: Yes Changes since office visit: Yes New Medical Problems, Yes Changes in Medication and Yes Patient answered all questions; No Cold of Flu in the past 2 weeks The History & Physical has been completed within 30 days and I have reviewed it.: Yes Section B Chief Complaint: Major Depressive Disorder Allergies: Allergies Allergy/AdvReac Type Severity Reaction Status Date / Time Penicillins [PENICILLINS] Allergy Unknown rash Verified 05/17/23 22:12 Plan I have reviewed the history and physical and performed a pertinent physical examination on my patient. No changes have occurred unless specified. Time Spent With Patient Time: Total time managing care of this patient today ____ minutes.
--- NOTE | 2023-05-24 10:02 | HO.ECTPROC ---
ECT Procedure Note Diagnosis/Treatment Date of Service: 05/24/23 Diagnosis: Major Depressive Disorder Previous ECT Date: 05/22/23 Current Treatment Number: 3 Treatment: Series Interval Clinical Notes: Patient quite depressed hopeless helpless lethargic limited food and fluid intake given iv fluids Time: Total time managing care of this patient today ____ minutes. ECT Settings Device: THYMATRON DGx Electrode Placement: Right Unilateral Program/Pulse Width: 0.50 Energy Percent: 100 Seizure Duration By EEG (in seconds): 46 Medications Administration General Anesthetic: Etomidate (14) Muscle Relaxant: Succinylcholine (100) Ancillary Medications Analgesics: Torodol - Pre ECT Anti-emetics: Zofran - Pre ECT Miscillaneous Medications: Propofol Airway Management Airway Management: Bag Mask Ventilation Treatment Recommendations Notes: If no improvement consider change to bifrontal or right temporal left frontal Pt Tolerated Procedure w/o Issue: Yes
[2023-05-24] MEDS: buPROPion HCl XL 150 MG TAB.ER.24H PO (11:03)
[2023-05-24] MEDS: Multivitamin TABLET 1 TAB PO (11:04)
[2023-05-24] MEDS: Atorvastatin Calcium 20 MG TABLET PO (11:04)
[2023-05-24] MEDS: Thiamine HCL 100 MG TABLET PO (11:05)
[2023-05-24] MEDS: Folic Acid 1 MG TABLET PO (11:05)
[2023-05-24] MEDS: Cholecalciferol (Vitamin D3) 25 MCG TABLET PO (11:06)
[2023-05-24] MEDS: metFORMIN HCl 500 MG TABLET PO ×2 (11:06→16:41)
[2023-05-24] MEDS: lisinopriL 10 MG TABLET PO (11:06)
[2023-05-24] MEDS: Escitalopram Oxalate 10 MG TABLET PO (11:06)
[2023-05-24] MEDS: OLANZapine 2.5 MG TABLET PO (11:07)
--- NOTE | 2023-05-24 11:41 | HO.PSYCHPN ---
Subjective Subjective Date of Service: 05/24/23 Reason For Visit: Major Depressive Disorder Interim History: calm, cooperative. ECT completed without incident. no requests or complaints, no major changes. per staff, no SI/HI/AVH. taking meals in milieu. attrending groups with staff cueing. slept well overnight. Mental Status Exam Mental Status Exam Narrative: Pleasant. Engaged. Fairly presented. Organized. No SI/HI/AVH expressed. Insight and judgment fair Diagnostics Vital Signs (24Hr): Vital Signs - 24 hr 05/23/23 20:11 05/24/23 08:15 05/24/23 08:30 Temperature 97.3 F 98.1 F Pulse Rate 86 81 81 Respiratory Rate 16 20 Blood Pressure 113/67 142/79 H 142/79 H Pulse Oximetry 96 97 Oxygen Delivery Method Room Air Oxygen Flow Rate 05/24/23 08:36 05/24/23 10:06 05/24/23 10:11 Temperature 97 F 97.2 F Pulse Rate 86 95 94 Respiratory Rate 16 23 H 22 H Blood Pressure 166/82 H 167/91 H 107/91 H Pulse Oximetry 98 97 97 Oxygen Delivery Method Room Air Nasal Cannula with ETCO2 Nasal Cannula with ETCO2 Oxygen Flow Rate 3 3 05/24/23 10:16 05/24/23 10:21 05/24/23 10:36 Temperature Pulse Rate 91 89 89 Respiratory Rate 23 H 18 20 Blood Pressure 152/93 H 150/86 H 140/87 H Pulse Oximetry 97 96 96 Oxygen Delivery Method Nasal Cannula with ETCO2 Room Air Room Air Oxygen Flow Rate 3 05/24/23 10:51 05/24/23 11:00 05/24/23 11:00 Temperature 97.6 F 97.2 F Pulse Rate 90 85 85 Respiratory Rate 20 16 Blood Pressure 146/81 H 143/80 H 143/80 H Pulse Oximetry 96 95 Oxygen Delivery Method Room Air Oxygen Flow Rate 05/24/23 11:00 Temperature 97.2 F Pulse Rate 85 Respiratory Rate 16 Blood Pressure 143/80 H Pulse Oximetry 97 Oxygen Delivery Method Room Air Oxygen Flow Rate BMI result Body Mass Index 24.1 Labs 05/18/23 10:11 05/18/23 10:11 Labs: Laboratory Results - last 48 hr 05/23/23 05/24/23 10:48 08:01 POC Glucose 105 86 Medications Medications Current Medications Acetaminophen (Acetaminophen 325 Mg Tablet) 650 mg PO Q6H PRN PRN Reason: Headache/Pain Mild Scale (1-3) Last Admin: 05/20/23 20:15 Dose: 325 mg Acetaminophen (Acetaminophen 325 Mg Tablet) 650 mg PO ONCE PRN PRN Reason: Pain, Mild (Pain Scale 1-3) Al Hydroxide/Mg Hydroxide (Magnesium Hydrox/Alum Hydrox 30 Ml Oral.Susp) 30 ml PO Q6H PRN PRN Reason: Heartburn/Nausea Atorvastatin Calcium (Atorvastatin Calcium 20 Mg Tablet) 20 mg PO DAILY [facility] Last Admin: 05/24/23 11:04 Dose: 20 mg Bupropion HCl (Bupropion Hcl Xl 150 Mg Tab.Er.24h) 150 mg PO DAILY [facility] Last Admin: 05/24/23 11:03 Dose: 150 mg Escitalopram Oxalate (Escitalopram Oxalate 10 Mg Tablet) 10 mg PO DAILY [facility] Last Admin: 05/24/23 11:06 Dose: 10 mg Folic Acid (Folic Acid 1 Mg Tablet) 1 mg PO DAILY [facility] Last Admin: 05/24/23 11:05 Dose: 1 mg Hydroxyzine HCl (Hydroxyzine Hcl 25 Mg Tablet) 25 mg PO Q6H PRN PRN Reason: Anxiety Lisinopril (Lisinopril 10 Mg Tablet) 10 mg PO DAILY [facility]; Protocol Last Admin: 05/24/23 11:06 Dose: 10 mg Magnesium Hydroxide (Milk Of Magnesia 30 Ml Oral.Susp) 30 ml PO DAILY PRN PRN Reason: Constipation Metformin HCl (Metformin Hcl 500 Mg Tablet) 500 mg PO BIDWM [facility] Last Admin: 05/24/23 11:06 Dose: 500 mg Multivitamins/Vitamin C (Multivitamin Tablet) 1 tab PO DAILY [facility] Last Admin: 05/24/23 11:04 Dose: 1 tab Olanzapine (Olanzapine 2.5 Mg Tablet) 2.5 mg PO DAILY [facility] Last Admin: 05/24/23 11:07 Dose: 2.5 mg Olanzapine (Olanzapine 7.5 Mg Tablet) 7.5 mg PO BEDTIME [facility] Last Admin: 05/23/23 23:09 Dose: 7.5 mg Ondansetron HCl (Ondansetron Hcl 4 Mg/2 Ml Vial) 4 mg IVPUSH ONCE PRN PRN Reason: Nausea and Vomiting Oxycodone HCl (Oxycodone Hcl Immed Release 5 Mg Tablet) 5 mg PO ONCE PRN PRN Reason: Pain, Severe (Pain Scale 7-10) Senna (Sennosides 8.6 Mg Tablet) 17.2 mg PO Q24H PRN PRN Reason: constipation Thiamine HCl (Thiamine Hcl 100 Mg Tablet) 100 mg PO DAILY [facility] Last Admin: 05/24/23 11:05 Dose: 100 mg Trazodone HCl (Trazodone Hcl 50 Mg Tablet) 50 mg PO BEDTIME MRX1 PRN PRN Reason: Insomnia Trazodone HCl (Trazodone Hcl 100 Mg Tablet) 100 mg PO BEDTIME [facility] Last Admin: 05/23/23 23:10 Dose: 100 mg Vitamin D (Cholecalciferol (Vitamin D3) 25 Mcg Tablet) 25 mcg PO DAILY [facility] Last Admin: 05/24/23 11:06 Dose: 25 mcg Allergies Allergies Allergy/AdvReac Type Severity Reaction Status Date / Time Penicillins [PENICILLINS] Allergy Unknown rash Verified 05/17/23 22:12 Assessment & Plan Assessment & Plan (1) Major depression with psychotic features: Status: Acute Code(s): F32.3 - Major depressive disorder, single episode, severe with psychotic features Plan 05/19: ECT to start Saturday05/20/23- confirmed with Dr. Garcia. NPO tonight and consents will be done pre ECT tomorrow 05/20: received ECT #1 without event. no change in presentation. continue current mgmt. UA NEG. thiamine and folate started as per medicine recommendation. 05/21: ECT #2 tomorrow. stable. continue current mgmt. 05/22: ECT #2 completed, #3 scheduled for saturday. slight improvement in mood from admission. continue current mgmt. 05/23: stable. ECT #3 tomorrow. continue current mgmt. 05/24: stable, ECT #3 completed without incident. continue current mgmt. ECT #4 scheduled for saturday. Reason for continued inpatient stay Substantial Risk for: inability to function and rapid decompensation Time Spent With Patient Time: Total time managing care of this patient today ____ minutes.
[2023-05-24] MEDS: OLANZapine 7.5 MG TABLET PO (20:52)
[2023-05-25 08:10] LABS: Glucose, Whole Blood 95 mg/dL (60-115)
[2023-05-25 08:48] LABS: Creatinine Clr Calc Pharmacy 87.8; Estimated Glomerular Filt Rate > 60
[2023-05-25] MEDS: Atorvastatin Calcium 20 MG TABLET PO (08:56)
[2023-05-25] MEDS: Thiamine HCL 100 MG TABLET PO (08:56)
[2023-05-25] MEDS: metFORMIN HCl 500 MG TABLET PO ×2 (08:56→16:55)
[2023-05-25] MEDS: lisinopriL 10 MG TABLET PO (08:56)
[2023-05-25] MEDS: OLANZapine 2.5 MG TABLET PO (08:56)
[2023-05-25] MEDS: Escitalopram Oxalate 10 MG TABLET PO (08:56)
[2023-05-25] MEDS: buPROPion HCl XL 150 MG TAB.ER.24H PO (08:56)
[2023-05-25] MEDS: Multivitamin TABLET 1 TAB PO (08:56)
[2023-05-25] MEDS: Folic Acid 1 MG TABLET PO (08:56)
[2023-05-25] MEDS: Cholecalciferol (Vitamin D3) 25 MCG TABLET PO (08:56)
[2023-05-25 09:28] VITALS: BP 130/64; PULSE 85
--- NOTE | 2023-05-25 09:52 | HO.PSYCHPN ---
Subjective Subjective Date of Service: 05/25/23 Reason For Visit: Major Depressive Disorder Subjective Notes: Conditional Voluntary Interim History: The patient is depressed withdrawn needs encouragement for food and fluids question some improvement since last treatment Medication Compliance: Yes Attending Groups: No Review of Systems Orthostatic hypotension limited fluid intake Mental Status Exam Mental Status Exam Patient Appearance: Fatigued Patient Orientation: Person, Place, Time and Situation Level of Consciousness: Appropriate and Lethargic Patient Behavior: Passive Mood Description: Constricted, Depressed and Blunted Affect Description: Appropriate and Constricted Patient Cognition Impaired: No Ability to Follow Directions: Good Speech Pattern: Clear Memory Description: Intact Hallucinations: None Delusions: Not Present Thought Process: Intact and Goal Oriented Thought Content: positive for Goal Oriented, positive for Preoccupation, positive for Suicidal Ideation (Passive SI) and negative for Homicidal Ideation Depressive Symptoms: Increased Anxiety, Increased Irritability, Hopelessness, Increased Fatigue, Thoughts of /Suicide, Loss of Energy and Difficulty Concentrating Abnormal Motor Activity Signs and Symptoms: Psychomotor Retardation Judgement: Fair Judgement and Insight: Needs much encouragement to eat ore to drink Diagnostics Vital Signs (24Hr): Vital Signs - 24 hr 05/24/23 10:06 05/24/23 10:11 05/24/23 10:16 Temperature 97.2 F Pulse Rate 95 94 91 Respiratory Rate 23 H 22 H 23 H Blood Pressure 167/91 H 107/91 H 152/93 H Pulse Oximetry 97 97 97 Oxygen Delivery Method Nasal Cannula with ETCO2 Nasal Cannula with ETCO2 Nasal Cannula with ETCO2 Oxygen Flow Rate 3 3 3 05/24/23 10:21 05/24/23 10:36 05/24/23 10:51 Temperature 97.6 F Pulse Rate 89 89 90 Respiratory Rate 18 20 20 Blood Pressure 150/86 H 140/87 H 146/81 H Pulse Oximetry 96 96 96 Oxygen Delivery Method Room Air Room Air Room Air Oxygen Flow Rate 05/24/23 11:00 05/24/23 11:00 05/24/23 11:00 Temperature 97.2 F 97.2 F Pulse Rate 85 85 85 Respiratory Rate 16 16 Blood Pressure 143/80 H 143/80 H 143/80 H Pulse Oximetry 95 97 Oxygen Delivery Method Room Air Oxygen Flow Rate 05/24/23 19:45 05/25/23 09:28 Temperature 97.0 F Pulse Rate 82 85 Respiratory Rate 18 Blood Pressure 118/68 130/64 Pulse Oximetry 97 Oxygen Delivery Method Room Air Oxygen Flow Rate BMI result Body Mass Index 24.1 Labs 05/18/23 10:11 05/26/23 12:10 Labs: Laboratory Results - last 48 hr 05/23/23 05/24/23 05/25/23 10:48 08:01 07:51 Creatinine 0.76 Estim Creat Clear Calc 87.8 Estimated GFR > 60 POC Glucose 105 86 05/25/23 07:59 Creatinine Estim Creat Clear Calc Estimated GFR POC Glucose 95 Medications Medications Current Medications Acetaminophen (Acetaminophen 325 Mg Tablet) 650 mg PO Q6H PRN PRN Reason: Headache/Pain Mild Scale (1-3) Last Admin: 05/20/23 20:15 Dose: 325 mg Acetaminophen (Acetaminophen 325 Mg Tablet) 650 mg PO ONCE PRN PRN Reason: Pain, Mild (Pain Scale 1-3) Al Hydroxide/Mg Hydroxide (Magnesium Hydrox/Alum Hydrox 30 Ml Oral.Susp) 30 ml PO Q6H PRN PRN Reason: Heartburn/Nausea Atorvastatin Calcium (Atorvastatin Calcium 20 Mg Tablet) 20 mg PO DAILY [facility] Last Admin: 05/25/23 08:56 Dose: 20 mg Bupropion HCl (Bupropion Hcl Xl 150 Mg Tab.Er.24h) 150 mg PO DAILY [facility] Last Admin: 05/25/23 08:56 Dose: 150 mg Escitalopram Oxalate (Escitalopram Oxalate 10 Mg Tablet) 10 mg PO DAILY [facility] Last Admin: 05/25/23 08:56 Dose: 10 mg Folic Acid (Folic Acid 1 Mg Tablet) 1 mg PO DAILY [facility] Last Admin: 05/25/23 08:56 Dose: 1 mg Hydroxyzine HCl (Hydroxyzine Hcl 25 Mg Tablet) 25 mg PO Q6H PRN PRN Reason: Anxiety Lisinopril (Lisinopril 10 Mg Tablet) 10 mg PO DAILY [facility]; Protocol Last Admin: 05/25/23 08:56 Dose: 10 mg Magnesium Hydroxide (Milk Of Magnesia 30 Ml Oral.Susp) 30 ml PO DAILY PRN PRN Reason: Constipation Metformin HCl (Metformin Hcl 500 Mg Tablet) 500 mg PO BIDWM [facility] Last Admin: 05/25/23 08:56 Dose: 500 mg Multivitamins/Vitamin C (Multivitamin Tablet) 1 tab PO DAILY [facility] Last Admin: 05/25/23 08:56 Dose: 1 tab Olanzapine (Olanzapine 2.5 Mg Tablet) 2.5 mg PO DAILY [facility] Last Admin: 05/25/23 08:56 Dose: 2.5 mg Olanzapine (Olanzapine 7.5 Mg Tablet) 7.5 mg PO BEDTIME [facility] Last Admin: 05/24/23 20:52 Dose: 7.5 mg Ondansetron HCl (Ondansetron Hcl 4 Mg/2 Ml Vial) 4 mg IVPUSH ONCE PRN PRN Reason: Nausea and Vomiting Senna (Sennosides 8.6 Mg Tablet) 17.2 mg PO Q24H PRN PRN Reason: constipation Thiamine HCl (Thiamine Hcl 100 Mg Tablet) 100 mg PO DAILY [facility] Last Admin: 05/25/23 08:56 Dose: 100 mg Trazodone HCl (Trazodone Hcl 100 Mg Tablet) 100 mg PO BEDTIME PRN PRN Reason: insomnia Vitamin D (Cholecalciferol (Vitamin D3) 25 Mcg Tablet) 25 mcg PO DAILY [facility] Last Admin: 05/25/23 08:56 Dose: 25 mcg Allergies Allergies Allergy/AdvReac Type Severity Reaction Status Date / Time Penicillins [PENICILLINS] Allergy Unknown rash Verified 05/17/23 22:12 Assessment & Plan Assessment & Plan (1) Major depression with psychotic features: Status: Acute Code(s): F32.3 - Major depressive disorder, single episode, severe with psychotic features Plan 05/19: ECT to start Saturday05/20/23- confirmed with Dr. Garcia. NPO tonight and consents will be done pre ECT tomorrow 05/20: received ECT #1 without event. no change in presentation. continue current mgmt. UA NEG. thiamine and folate started as per medicine recommendation. 05/21: ECT #2 tomorrow. stable. continue current mgmt. 05/22: ECT #2 completed, #3 scheduled for saturday. slight improvement in mood from admission. continue current mgmt. 05/23: stable. ECT #3 tomorrow. continue current mgmt. 05/24: stable, ECT #3 completed without incident. continue current mgmt. ECT #4 scheduled for saturday. 05/25/2023 Patient remains depressed encourage food fluids check labs continue ECT monitor vital signs Reason for continued inpatient stay Substantial Risk for: harm to self, inability to function and med/psych decompensation Time Spent With Patient Time: Total time managing care of this patient today ____ minutes.
[2023-05-25] MEDS: OLANZapine 7.5 MG TABLET PO (20:15)
[2023-05-25 20:22] VITALS: BP 109/65; PULSE 104; RESP 16; TEMP 36.2; O2SAT 94
[2023-05-26 08:00] VITALS: BP 91/62; PULSE 111
[2023-05-26 08:14] LABS: Glucose, Whole Blood 92 mg/dL (60-115)
[2023-05-26] MEDS: OLANZapine 2.5 MG TABLET PO (08:33)
[2023-05-26] MEDS: Atorvastatin Calcium 20 MG TABLET PO (08:33)
[2023-05-26] MEDS: Multivitamin TABLET 1 TAB PO (08:33)
[2023-05-26] MEDS: Escitalopram Oxalate 10 MG TABLET PO (08:33)
[2023-05-26] MEDS: Folic Acid 1 MG TABLET PO (08:33)
[2023-05-26] MEDS: metFORMIN HCl 500 MG TABLET PO ×2 (08:33→17:11)
[2023-05-26] MEDS: Thiamine HCL 100 MG TABLET PO (08:33)
[2023-05-26] MEDS: lisinopriL 10 MG TABLET PO (08:33)
[2023-05-26] MEDS: Cholecalciferol (Vitamin D3) 25 MCG TABLET PO (08:33)
[2023-05-26] MEDS: buPROPion HCl XL 150 MG TAB.ER.24H PO (08:33)
[2023-05-26 08:56] VITALS: BP 110/69; PULSE 99; RESP 18; TEMP 36.4; O2SAT 96
--- NOTE | 2023-05-26 10:37 | PC.NURSE ---
Patients supine BP in am 108/71 P99. Orthostatic BP at 0945 sitting BP 91/62 P 111, standing BP 83/47 P 120. MD notified, will encourage fluids for the next hr and recheck. Pt A&0 x4, mood depressed, pt not eating or drinking at meals. Pt denied dizziness or discomfort. Pt provided a pitcher of water to drink, pt laid down and rolled over.
[2023-05-26 12:31] LABS: Anion Gap 14 (12-20); Blood Urea Nitrogen 13 mg/dL (9-16); Calcium 9.7 mg/dL (8.4-10.2); Carbon Dioxide 27 mmol/L (22-29); Chloride 103 mmol/L (96-108); Creatinine Clr Calc Pharmacy 80.4; Estimated Glomerular Filt Rate > 60; Glucose Random 100 mg/dL (60-115); Potassium 4.2 mmol/L (3.3-5.1); Sodium 140 mmol/L (135-145)
[2023-05-26] MEDS: 0.9 % Sodium Chloride 1,000 ML 250 ML IV (14:38)
--- NOTE | 2023-05-26 16:10 | P.PNPSI_ITS ---
Subjective Subjective Date of Service: 05/26/23 Reason For Visit: Major Depressive Disorder Subjective Notes: Conditional Voluntary Interim History: Patient seen psychiatric follow-up. Patient depressed withdrawn minimally taking in food and fluids. Was orthostatic given of 1 L of fluids. Added Ensure but patient not cooperative with maintaining his nutrition and fluid status. Hopeless helpless despondent denies active SI Medication Compliance: Yes Mental Status Exam Mental Status Exam Patient Appearance: Fatigued Patient Orientation: Person, Place, Time and Situation Level of Consciousness: Appropriate and Lethargic Patient Behavior: Passive Mood Description: Constricted, Depressed and Blunted Affect Description: Appropriate and Constricted Patient Cognition Impaired: No Ability to Follow Directions: Good Speech Pattern: Clear Memory Description: Intact Hallucinations: None Delusions: Not Present Thought Process: Intact and Goal Oriented Thought Content: positive for Goal Oriented, positive for Preoccupation, positive for Suicidal Ideation (Passive SI) and negative for Homicidal Ideation Depressive Symptoms: Increased Anxiety, Increased Irritability, Hopelessness, Increased Fatigue, Thoughts of /Suicide, Loss of Energy and Difficulty Concentrating Abnormal Motor Activity Signs and Symptoms: Psychomotor Retardation Judgement: Fair Judgement and Insight: Needs much encouragement to eat ore to drink Diagnostics Vital Signs (24Hr): Vital Signs - 24 hr 05/25/23 20:22 05/26/23 08:00 05/26/23 08:56 Temperature 97.1 F 97.6 F Pulse Rate 104 H 111 H 99 Respiratory Rate 16 18 Blood Pressure 109/65 91/62 110/69 Pulse Oximetry 94 96 Oxygen Delivery Method Room Air Room Air BMI result Body Mass Index 24.1 Labs 05/18/23 10:11 05/26/23 18:45 Labs: Laboratory Results - last 48 hr 05/25/23 05/25/23 05/26/23 07:51 07:59 08:08 Sodium Potassium Chloride Carbon Dioxide Anion Gap BUN Creatinine 0.76 Estim Creat Clear Calc 87.8 Estimated GFR > 60 POC Glucose 95 92 Random Glucose Calcium 05/26/23 12:10 Sodium 140 Potassium 4.2 Chloride 103 Carbon Dioxide 27 Anion Gap 14 BUN 13 Creatinine 0.83 Estim Creat Clear Calc 80.4 Estimated GFR > 60 POC Glucose Random Glucose 100 Calcium 9.7 Medications Medications Current Medications Acetaminophen (Acetaminophen 325 Mg Tablet) 650 mg PO Q6H PRN PRN Reason: Headache/Pain Mild Scale (1-3) Last Admin: 05/20/23 20:15 Dose: 325 mg Acetaminophen (Acetaminophen 325 Mg Tablet) 650 mg PO ONCE PRN PRN Reason: Pain, Mild (Pain Scale 1-3) Al Hydroxide/Mg Hydroxide (Magnesium Hydrox/Alum Hydrox 30 Ml Oral.Susp) 30 ml PO Q6H PRN PRN Reason: Heartburn/Nausea Atorvastatin Calcium (Atorvastatin Calcium 20 Mg Tablet) 20 mg PO DAILY [facility] Last Admin: 05/26/23 08:33 Dose: 20 mg Bupropion HCl (Bupropion Hcl Xl 150 Mg Tab.Er.24h) 150 mg PO DAILY [facility] Last Admin: 05/26/23 08:33 Dose: 150 mg Escitalopram Oxalate (Escitalopram Oxalate 10 Mg Tablet) 10 mg PO DAILY [facility] Last Admin: 05/26/23 08:33 Dose: 10 mg Folic Acid (Folic Acid 1 Mg Tablet) 1 mg PO DAILY [facility] Last Admin: 05/26/23 08:33 Dose: 1 mg Hydroxyzine HCl (Hydroxyzine Hcl 25 Mg Tablet) 25 mg PO Q6H PRN PRN Reason: Anxiety Lisinopril (Lisinopril 10 Mg Tablet) 10 mg PO DAILY [facility]; Protocol Last Admin: 05/26/23 08:33 Dose: 10 mg Magnesium Hydroxide (Milk Of Magnesia 30 Ml Oral.Susp) 30 ml PO DAILY PRN PRN Reason: Constipation Metformin HCl (Metformin Hcl 500 Mg Tablet) 500 mg PO BIDWM [facility] Last Admin: 05/26/23 08:33 Dose: 500 mg Multivitamins/Vitamin C (Multivitamin Tablet) 1 tab PO DAILY [facility] Last Admin: 05/26/23 08:33 Dose: 1 tab Olanzapine (Olanzapine 2.5 Mg Tablet) 2.5 mg PO DAILY [facility] Last Admin: 05/26/23 08:33 Dose: 2.5 mg Olanzapine (Olanzapine 7.5 Mg Tablet) 7.5 mg PO BEDTIME [facility] Last Admin: 05/25/23 20:15 Dose: 7.5 mg Ondansetron HCl (Ondansetron Hcl 4 Mg/2 Ml Vial) 4 mg IVPUSH ONCE PRN PRN Reason: Nausea and Vomiting Senna (Sennosides 8.6 Mg Tablet) 17.2 mg PO Q24H PRN PRN Reason: constipation Thiamine HCl (Thiamine Hcl 100 Mg Tablet) 100 mg PO DAILY [facility] Last Admin: 05/26/23 08:33 Dose: 100 mg Trazodone HCl (Trazodone Hcl 50 Mg Tablet) 50 mg PO BEDTIME PRN PRN Reason: insomnia Vitamin D (Cholecalciferol (Vitamin D3) 25 Mcg Tablet) 25 mcg PO DAILY [facility] Last Admin: 05/26/23 08:33 Dose: 25 mcg Allergies Allergies Allergy/AdvReac Type Severity Reaction Status Date / Time Penicillins [PENICILLINS] Allergy Unknown rash Verified 05/17/23 22:12 Assessment & Plan Assessment & Plan (1) Major depression with psychotic features: Status: Acute Code(s): F32.3 - Major depressive disorder, single episode, severe with psychotic features Plan 05/19: ECT to start Saturday05/20/23- confirmed with Dr. Garcia. NPO tonight and consents will be done pre ECT tomorrow 05/20: received ECT #1 without event. no change in presentation. continue current mgmt. UA NEG. thiamine and folate started as per medicine recommendation. 05/21: ECT #2 tomorrow. stable. continue current mgmt. 05/22: ECT #2 completed, #3 scheduled for saturday. slight improvement in mood from admission. continue current mgmt. 05/23: stable. ECT #3 tomorrow. continue current mgmt. 05/24: stable, ECT #3 completed without incident. continue current mgmt. ECT #4 scheduled for saturday. 05/25/2023 Patient remains depressed encourage food fluids check labs continue ECT monitor vital signs 05/26/2023 Patient remains severely depressed and withdrawn not taking in adequate nutrition required IV fluids Given 1 L normal saline 250 cc an hour would benefit from further fluid replacement Patient educated on: ECT and medical condition Informed Consent: further education needed Reason for continued inpatient stay Substantial Risk for: harm to self Time Spent With Patient Time: Total time managing care of this patient today35 ____ minutes.
[2023-05-26 18:10] VITALS: BP 162/89; PULSE 89
--- NOTE | 2023-05-26 18:19 | PC.NURSE ---
Patient received IV fluids 0.9% NS, 860CC infused without difficulty. Pts sitting BP 162/89 P 76, standing BP 155/90 P 89 post infusion, MD aware and will continue to monitor orthostatic BP's. Pt encourage to eat dinner, pt only drank 240 of chocolate milk and returned tray. Pt is A&O x4. Hep lock remains in left anticubital area for ECT and further tx. Site has no s/sx of infection, no redness, and dressing intact.
[2023-05-26 19:13] LABS: Anion Gap 15 (12-20); Blood Urea Nitrogen 12 mg/dL (9-16); Calcium 9.4 mg/dL (8.4-10.2); Carbon Dioxide 25 mmol/L (22-29); Chloride 104 mmol/L (96-108); Creatinine Clr Calc Pharmacy 90.2; Estimated Glomerular Filt Rate > 60; Glucose Random 126 mg/dL (60-115); Potassium 4.1 mmol/L (3.3-5.1); Sodium 140 mmol/L (135-145)
[2023-05-26 19:43] VITALS: BP 130/74; PULSE 78; RESP 16; TEMP 36.2; O2SAT 97
[2023-05-26] MEDS: OLANZapine 7.5 MG TABLET PO (20:56)
[2023-05-27] VITALS (8 sets, daily range): BP systolic 124–162; BP diastolic 64–98; PULSE 77–118; RESP 16–23; TEMP 36.1–36.6; O2SAT 95–98
[2023-05-27 06:13] LABS: Glucose, Whole Blood 88 mg/dL (60-115)
--- NOTE | 2023-05-27 06:47 | P.CONAN_ITS ---
[facility] Active Problems Active Problems: All Active Problems (Updated 05/18/23 @ 16:31 by Samuel Booth MD) Major depression with psychotic features (Acute) Routine medical exam (Acute) Past Medical History Medical History HLD (hyperlipidemia) HTN (hypertension) Non-insulin dependent type 2 diabetes mellitus Family History Family history of problems with anesthesia: No Surgical History History of Problems with Anesthesia: No Social History Social History Household Members: Significant Other Housing: Apartment Do you presently have visiting nurse or other home services: No Patient Tobacco Use Status: Former Tobacco user Quit Date: 50 years ago Tobacco use type: Cigarette Smoked in Last 30 Days: No e-Cigarette/Vaping Use: Never Used Patient Interested in Nicotine Replacement: No Patient Given Instructions on How to Stop Smoking: No (n/a) Second Hand Smoke Exposure: No Use of substances other than those prescribed or required for medical reasons: Yes Substance Use Type: Marijuana Substance Use Frequency: Chronic Longstanding Last Used Substance Other:: month ago Currently Displaying Signs/Symptoms of Drug Intoxication Withdrawal: No Any prior treatment program specific to substance use: No Have you been hit, kicked, punched, or otherwise hurt by someone within the past year? If so, by whom?: No Do you feel safe in your current relationship?: Yes Is there a partner from a previous relationship who is making you feel unsafe now?: No Are you made to feel afraid or neglected: No Advance Directives: No Advance Directives Information Provided: No Do you have thoughts of harming others: None Do you have a plan to hurt others: No Plan Recently lost weight without trying: Yes How much weight loss: 14-23 pounds Eating poorly because of decreased appetite: No Nutrition screen score: 4 Nutrition Risks: Dental problems Poor oral hygiene: Yes service: No Sexual orientation: Straight/Heterosexual Meds Allergies Allergy/AdvReac Type Severity Reaction Status Date / Time Penicillins [PENICILLINS] Allergy Unknown rash Verified 05/17/23 22:12 Active Medications: Current Medications Acetaminophen (Acetaminophen 325 Mg Tablet) 650 mg PO Q6H PRN PRN Reason: Headache/Pain Mild Scale (1-3) Last Admin: 05/20/23 20:15 Dose: 325 mg Acetaminophen (Acetaminophen 325 Mg Tablet) 650 mg PO ONCE PRN PRN Reason: Pain, Mild (Pain Scale 1-3) Al Hydroxide/Mg Hydroxide (Magnesium Hydrox/Alum Hydrox 30 Ml Oral.Susp) 30 ml PO Q6H PRN PRN Reason: Heartburn/Nausea Atorvastatin Calcium (Atorvastatin Calcium 20 Mg Tablet) 20 mg PO DAILY [facility] Last Admin: 05/26/23 08:33 Dose: 20 mg Bupropion HCl (Bupropion Hcl Xl 150 Mg Tab.Er.24h) 150 mg PO DAILY [facility] Last Admin: 05/26/23 08:33 Dose: 150 mg Escitalopram Oxalate (Escitalopram Oxalate 10 Mg Tablet) 10 mg PO DAILY [facility] Last Admin: 05/26/23 08:33 Dose: 10 mg Folic Acid (Folic Acid 1 Mg Tablet) 1 mg PO DAILY [facility] Last Admin: 05/26/23 08:33 Dose: 1 mg Hydroxyzine HCl (Hydroxyzine Hcl 25 Mg Tablet) 25 mg PO Q6H PRN PRN Reason: Anxiety Lisinopril (Lisinopril 10 Mg Tablet) 10 mg PO DAILY [facility]; Protocol Last Admin: 05/26/23 08:33 Dose: 10 mg Magnesium Hydroxide (Milk Of Magnesia 30 Ml Oral.Susp) 30 ml PO DAILY PRN PRN Reason: Constipation Metformin HCl (Metformin Hcl 500 Mg Tablet) 500 mg PO BIDWM [facility] Last Admin: 05/26/23 17:11 Dose: 500 mg Multivitamins/Vitamin C (Multivitamin Tablet) 1 tab PO DAILY [facility] Last Admin: 05/26/23 08:33 Dose: 1 tab Olanzapine (Olanzapine 2.5 Mg Tablet) 2.5 mg PO DAILY [facility] Last Admin: 05/26/23 08:33 Dose: 2.5 mg Olanzapine (Olanzapine 7.5 Mg Tablet) 7.5 mg PO BEDTIME [facility] Last Admin: 05/26/23 20:56 Dose: 7.5 mg Ondansetron HCl (Ondansetron Hcl 4 Mg/2 Ml Vial) 4 mg IVPUSH ONCE PRN PRN Reason: Nausea and Vomiting Senna (Sennosides 8.6 Mg Tablet) 17.2 mg PO Q24H PRN PRN Reason: constipation Thiamine HCl (Thiamine Hcl 100 Mg Tablet) 100 mg PO DAILY [facility] Last Admin: 05/26/23 08:33 Dose: 100 mg Trazodone HCl (Trazodone Hcl 50 Mg Tablet) 50 mg PO BEDTIME PRN PRN Reason: insomnia Vitamin D (Cholecalciferol (Vitamin D3) 25 Mcg Tablet) 25 mcg PO DAILY [place] Last Admin: 05/26/23 08:33 Dose: 25 mcg Home Medications Medication Instructions Recorded Confirmed Last Taken Type atorvastatin 20 mg tablet 20 mg PO DAILY 05/17/23 05/17/23 05/17/23 09:16 History bupropion HCl 150 mg 24 hr tablet, 150 mg PO QAM 05/17/23 05/17/23 05/17/23 09:16 History extended release cholecalciferol (vitamin D3) 25 25 mcg PO DAILY 05/17/23 05/17/23 05/17/23 09:16 History mcg (1,000 unit) tablet citalopram 20 mg tablet 20 mg PO DAILY 05/17/23 05/17/23 05/17/23 09:16 History lisinopril 10 mg tablet 10 mg PO DAILY 05/17/23 05/17/23 05/17/23 09:16 History metformin 500 mg tablet 500 mg PO BIDWMEAL 05/17/23 05/17/23 05/17/23 09:16 History multivitamin 1 tab PO DAILY 05/17/23 05/17/23 05/17/23 09:16 History olanzapine 2.5 mg tablet 2.5 mg PO DAILY 05/17/23 05/17/23 05/17/23 09:21 History olanzapine 7.5 mg tablet 7.5 mg PO BEDTIME 05/17/23 05/17/23 05/16/23 19:46 History trazodone 100 mg tablet 100 mg PO BEDTIME 05/17/23 05/17/23 05/16/23 19:46 History Exam Exam Date and Time: May 27, 2023 0647 Height,Weight and Vital Signs: Height 5 ft 9 in Weight 74.096 kg Last Vital Signs Temp 97.0 F 05/27/23 06:18 Pulse 91 05/27/23 06:18 Resp 18 05/27/23 06:18 BP 136/75 05/27/23 06:18 Pulse Ox 98 05/27/23 06:18 O2 Del Method Room Air 05/26/23 19:43 O2 Flow Rate 3 05/24/23 10:16 Pertinent Lab Results Pertinent Lab Results: Laboratory Tests 05/18/23 05/18/23 05/18/23 08:18 10:11 14:50 WBC 11.8 H RBC 5.55 Hgb 17.2 Hct 48.2 MCV 86.8 MCH 31.0 MCHC 35.7 RDW 12.5 Plt Count 414 H MPV 8.5 L Immature Gran % (Auto) 0.3 Neut % (Auto) 80.0 H Lymph % (Auto) 9.4 L [place] % (Auto) 9.1 Eos % (Auto) 0.8 Baso % (Auto) 0.4 Lymph # (Auto) 1.1 L [place] # (Auto) 1.1 Eos # (Auto) 0.1 Baso # (Auto) 0.1 Abs Immat Gran (auto) 0.03 Absolute Neuts (auto) 9.5 H Absolute Nucleated RBC 0.000 Nucleated RBC % (auto) 0.0 Sodium 136 Potassium 4.3 Chloride 97 Carbon Dioxide 25 Anion Gap 18 BUN 18 H Creatinine 0.84 Estim Creat Clear Calc 79.4 Estimated GFR > 60 POC Glucose 99 Random Glucose Fasting Glucose 92 Calcium 10.1 Total Bilirubin 0.8 AST 25 ALT 30 Alkaline Phosphatase 112 Total Protein 7.3 Albumin 4.2 Triglycerides 75 Cholesterol 122 LDL Cholesterol, Calc 57 HDL Cholesterol 50 Vitamin B12 1394 H Folate 16.3 TSH 0.62 Urine Color Dark Yellow Urine Appearance Cloudy Urine pH 5.0 Ur Specific [place] >= 1.030 H Urine Protein Trace Urine Glucose (UA) Negative Urine Ketones 15 Urine Blood Negative Urine Nitrite Negative Ur Leukocyte Esterase Negative 05/19/23 05/20/23 05/21/23 07:57 07:27 08:03 WBC RBC Hgb Hct MCV MCH MCHC RDW Plt Count MPV Immature Gran % (Auto) Neut % (Auto) Lymph % (Auto) [place] % (Auto) Eos % (Auto) Baso % (Auto) Lymph # (Auto) [place] # (Auto) Eos # (Auto) Baso # (Auto) Abs Immat Gran (auto) Absolute Neuts (auto) Absolute Nucleated RBC Nucleated RBC % (auto) Sodium Potassium Chloride Carbon Dioxide Anion Gap BUN Creatinine Estim Creat Clear Calc Estimated GFR POC Glucose 104 110 96 Random Glucose Fasting Glucose Calcium Total Bilirubin AST ALT Alkaline Phosphatase Total Protein Albumin Triglycerides Cholesterol LDL Cholesterol, Calc HDL Cholesterol Vitamin B12 Folate TSH Urine Color Urine Appearance Urine pH Ur Specific [place] Urine Protein Urine Glucose (UA) Urine Ketones Urine Blood Urine Nitrite Ur Leukocyte Esterase 05/22/23 05/23/23 05/24/23 06:35 10:48 08:01 WBC RBC Hgb Hct MCV MCH MCHC RDW Plt Count MPV Immature Gran % (Auto) Neut % (Auto) Lymph % (Auto) [place] % (Auto) Eos % (Auto) Baso % (Auto) Lymph # (Auto) [place] # (Auto) Eos # (Auto) Baso # (Auto) Abs Immat Gran (auto) Absolute Neuts (auto) Absolute Nucleated RBC Nucleated RBC % (auto) Sodium Potassium Chloride Carbon Dioxide Anion Gap BUN Creatinine Estim Creat Clear Calc Estimated GFR POC Glucose 108 105 86 Random Glucose Fasting Glucose Calcium Total Bilirubin AST ALT Alkaline Phosphatase Total Protein Albumin Triglycerides Cholesterol LDL Cholesterol, Calc HDL Cholesterol Vitamin B12 Folate TSH Urine Color Urine Appearance Urine pH Ur Specific [place] Urine Protein Urine Glucose (UA) Urine Ketones Urine Blood Urine Nitrite Ur Leukocyte Esterase 05/25/23 05/25/23 05/26/23 07:51 07:59 08:08 WBC RBC Hgb Hct MCV MCH MCHC RDW Plt Count MPV Immature Gran % (Auto) Neut % (Auto) Lymph % (Auto) [place] % (Auto) Eos % (Auto) Baso % (Auto) Lymph # (Auto) [place] # (Auto) Eos # (Auto) Baso # (Auto) Abs Immat Gran (auto) Absolute Neuts (auto) Absolute Nucleated RBC Nucleated RBC % (auto) Sodium Potassium Chloride Carbon Dioxide Anion Gap BUN Creatinine 0.76 Estim Creat Clear Calc 87.8 Estimated GFR > 60 POC Glucose 95 92 Random Glucose Fasting Glucose Calcium Total Bilirubin AST ALT Alkaline Phosphatase Total Protein Albumin Triglycerides Cholesterol LDL Cholesterol, Calc HDL Cholesterol Vitamin B12 Folate TSH Urine Color Urine Appearance Urine pH Ur Specific [place] Urine Protein Urine Glucose (UA) Urine Ketones Urine Blood Urine Nitrite Ur Leukocyte Esterase 05/26/23 05/26/23 05/27/23 12:10 18:45 05:49 WBC RBC Hgb Hct MCV MCH MCHC RDW Plt Count MPV Immature Gran % (Auto) Neut % (Auto) Lymph % (Auto) [place] % (Auto) Eos % (Auto) Baso % (Auto) Lymph # (Auto) [place] # (Auto) Eos # (Auto) Baso # (Auto) Abs Immat Gran (auto) Absolute Neuts (auto) Absolute Nucleated RBC Nucleated RBC % (auto) Sodium 140 140 Potassium 4.2 4.1 Chloride 103 104 Carbon Dioxide 27 25 Anion Gap 14 15 BUN 13 12 Creatinine 0.83 0.74 Estim Creat Clear Calc 80.4 90.2 Estimated GFR > 60 > 60 POC Glucose 88 Random Glucose 100 126 H Fasting Glucose Calcium 9.7 9.4 Total Bilirubin AST ALT Alkaline Phosphatase Total Protein Albumin Triglycerides Cholesterol LDL Cholesterol, Calc HDL Cholesterol Vitamin B12 Folate TSH Urine Color Urine Appearance Urine pH Ur Specific [place] Urine Protein Urine Glucose (UA) Urine Ketones Urine Blood Urine Nitrite Ur Leukocyte Esterase Airway Mallampati Class: II TM Dist: >3cm Neck ROM: Full Partial: Upper Heart: rrr Lungs: cta Assessment and Plan Assessment Anesthesia Assessment: Anesthesia Plan Discussed and Chart Reviewed Final Anesthetic Review Family History of Problems with Anesthesia: No History of Problems with Anesthesia: No NPO: Yes ASA Class: III Final Preanesthetic Review: No Changes in Pt Med Stat, Meds/Allgs Chart Reviewed and Consent Obtained/Reviewed Patient Risk: Intermediate Procedure Risk: Intermediate Anesthetic Plan Anesthetic Plan: GA Disposition: Standard PACU
--- NOTE | 2023-05-27 07:02 | MHC.SHP ---
Pre-Procedural Eval Section A Date of Service: 05/27/23 The patient is an INPATIENT: Yes Changes since office visit: No Cold of Flu in the past 2 weeks, No New Medical Problems, No Changes in Medication and No Patient answered all questions The History & Physical has been completed within 30 days and I have reviewed it.: Yes Section B Chief Complaint: Major Depressive Disorder Allergies: Allergies Allergy/AdvReac Type Severity Reaction Status Date / Time Penicillins [PENICILLINS] Allergy Unknown rash Verified 05/17/23 22:12 Plan I have reviewed the history and physical and performed a pertinent physical examination on my patient. No changes have occurred unless specified. Time Spent With Patient Time: Total time managing care of this patient today ____ minutes.
--- NOTE | 2023-05-27 07:31 | HO.ECTPROC ---
ECT Procedure Note Diagnosis/Treatment Date of Service: 05/27/23 Diagnosis: Major Depressive Disorder Previous ECT Date: 05/24/23 Current Treatment Number: 4 Treatment: Series Interval Clinical Notes: The patient reported mild improvement of dysphoria, the report of staff reported still poor PO intake but the patient reported normal appetite. No side effects with the previous ECT. ECT performed as usual, no complications, woke up without any problems. Time: Total time managing care of this patient today __30__ minutes. ECT Settings Device: THYMATRON DGx Electrode Placement: Right Unilateral Program/Pulse Width: 0.50 Energy Percent: 100 Seizure Duration By EEG (in seconds): 47 By Motor Observation (in seconds): 19 Medications Administration General Anesthetic: Etomidate (14) Muscle Relaxant: Succinylcholine (100) Ancillary Medications Analgesics: Torodol - Pre ECT Anti-emetics: Zofran - Pre ECT Airway Management Airway Management: Bag Mask Ventilation Treatment Recommendations No Changes Recommended: No change Pt Tolerated Procedure w/o Issue: Yes
[2023-05-27] MEDS: metFORMIN HCl 500 MG TABLET PO ×2 (08:43→17:55)
[2023-05-27] MEDS: Thiamine HCL 100 MG TABLET PO (08:43)
[2023-05-27] MEDS: Folic Acid 1 MG TABLET PO (08:44)
[2023-05-27] MEDS: Escitalopram Oxalate 10 MG TABLET PO (08:44)
[2023-05-27] MEDS: Cholecalciferol (Vitamin D3) 25 MCG TABLET PO (08:44)
[2023-05-27] MEDS: Atorvastatin Calcium 20 MG TABLET PO (08:44)
[2023-05-27] MEDS: OLANZapine 2.5 MG TABLET PO (08:45)
[2023-05-27] MEDS: Multivitamin TABLET 1 TAB PO (08:45)
[2023-05-27] MEDS: buPROPion HCl XL 150 MG TAB.ER.24H PO (08:45)
[2023-05-27] MEDS: lisinopriL 10 MG TABLET PO (08:45)
[2023-05-27] MEDS: Sennosides 8.6 MG TABLET 17.2 MG PO (10:56)
--- NOTE | 2023-05-27 15:23 | HO.PSYCHPN ---
Subjective Subjective Date of Service: 05/27/23 Reason For Visit: Major Depressive Disorder Interim History: calm, cooperative. brief smile. states his mood is better. less dizzy. review that trazodone was stopped over w/e, pt OK with that, slept OK last night. per staff, dep mood, flat affect. orthostasis continues. poor PO intake yesterday, got 1 L IV fluids. Mental Status Exam Mental Status Exam Narrative: Pleasant. Engaged. Fairly presented. Organized. No SI/HI/AVH expressed. mood improved. Insight and judgment fair Diagnostics Vital Signs (24Hr): Vital Signs - 24 hr 05/26/23 18:10 05/26/23 19:43 05/27/23 06:18 Temperature 97.2 F 97.0 F Pulse Rate 89 78 91 Respiratory Rate 16 18 Blood Pressure 162/89 H 130/74 136/75 Pulse Oximetry 97 98 Oxygen Delivery Method Room Air Oxygen Flow Rate 05/27/23 07:45 05/27/23 07:50 05/27/23 07:55 Temperature 97.8 F Pulse Rate 118 H 80 77 Respiratory Rate 20 23 H 16 Blood Pressure 155/88 H 155/88 H 157/98 H Pulse Oximetry 97 98 97 Oxygen Delivery Method Nasal Cannula with ETCO2 Nasal Cannula with ETCO2 Nasal Cannula with ETCO2 Oxygen Flow Rate 2 2 2 05/27/23 08:00 05/27/23 08:15 05/27/23 08:30 Temperature 97.2 F Pulse Rate 81 82 84 Respiratory Rate 17 18 Blood Pressure 162/87 H 147/82 H 147/79 H Pulse Oximetry 95 95 Oxygen Delivery Method Nasal Cannula with ETCO2 Room Air Oxygen Flow Rate 2 05/27/23 08:30 Temperature 97.5 F Pulse Rate 84 Respiratory Rate 20 Blood Pressure 147/79 H Pulse Oximetry 97 Oxygen Delivery Method Oxygen Flow Rate BMI result Body Mass Index 24.1 Labs 05/18/23 10:11 05/26/23 18:45 Labs: Laboratory Results - last 48 hr 05/26/23 05/26/23 05/26/23 08:08 12:10 18:45 Sodium 140 140 Potassium 4.2 4.1 Chloride 103 104 Carbon Dioxide 27 25 Anion Gap 14 15 BUN 13 12 Creatinine 0.83 0.74 Estim Creat Clear Calc 80.4 90.2 Estimated GFR > 60 > 60 POC Glucose 92 Random Glucose 100 126 H Calcium 9.7 9.4 05/27/23 05:49 Sodium Potassium Chloride Carbon Dioxide Anion Gap BUN Creatinine Estim Creat Clear Calc Estimated GFR POC Glucose 88 Random Glucose Calcium Medications Medications Current Medications Acetaminophen (Acetaminophen 325 Mg Tablet) 650 mg PO Q6H PRN PRN Reason: Headache/Pain Mild Scale (1-3) Last Admin: 05/20/23 20:15 Dose: 325 mg Acetaminophen (Acetaminophen 325 Mg Tablet) 650 mg PO ONCE PRN PRN Reason: Pain, Mild (Pain Scale 1-3) Al Hydroxide/Mg Hydroxide (Magnesium Hydrox/Alum Hydrox 30 Ml Oral.Susp) 30 ml PO Q6H PRN PRN Reason: Heartburn/Nausea Atorvastatin Calcium (Atorvastatin Calcium 20 Mg Tablet) 20 mg PO DAILY [facility] Last Admin: 05/27/23 08:44 Dose: 20 mg Bupropion HCl (Bupropion Hcl Xl 150 Mg Tab.Er.24h) 150 mg PO DAILY [facility] Last Admin: 05/27/23 08:45 Dose: 150 mg Escitalopram Oxalate (Escitalopram Oxalate 10 Mg Tablet) 10 mg PO DAILY [facility] Last Admin: 05/27/23 08:44 Dose: 10 mg Folic Acid (Folic Acid 1 Mg Tablet) 1 mg PO DAILY [facility] Last Admin: 05/27/23 08:44 Dose: 1 mg Hydroxyzine HCl (Hydroxyzine Hcl 25 Mg Tablet) 25 mg PO Q6H PRN PRN Reason: Anxiety Lisinopril (Lisinopril 10 Mg Tablet) 10 mg PO DAILY [facility]; Protocol Last Admin: 05/27/23 08:45 Dose: 10 mg Magnesium Hydroxide (Milk Of Magnesia 30 Ml Oral.Susp) 30 ml PO DAILY PRN PRN Reason: Constipation Metformin HCl (Metformin Hcl 500 Mg Tablet) 500 mg PO BIDWM [facility] Last Admin: 05/27/23 08:43 Dose: 500 mg Multivitamins/Vitamin C (Multivitamin Tablet) 1 tab PO DAILY [facility] Last Admin: 05/27/23 08:45 Dose: 1 tab Olanzapine (Olanzapine 2.5 Mg Tablet) 2.5 mg PO DAILY [facility] Last Admin: 05/27/23 08:45 Dose: 2.5 mg Olanzapine (Olanzapine 7.5 Mg Tablet) 7.5 mg PO BEDTIME [facility] Last Admin: 05/26/23 20:56 Dose: 7.5 mg Ondansetron HCl (Ondansetron Hcl 4 Mg/2 Ml Vial) 4 mg IVPUSH ONCE PRN PRN Reason: Nausea and Vomiting Senna (Sennosides 8.6 Mg Tablet) 17.2 mg PO Q24H PRN PRN Reason: constipation Last Admin: 05/27/23 10:56 Dose: 17.2 mg Sodium Chloride (0.9 % Sodium Chloride Flush 3 Ml Syringe) 3 ml IVFLUSH QSHIFT [facility] Thiamine HCl (Thiamine Hcl 100 Mg Tablet) 100 mg PO DAILY [facility] Last Admin: 05/27/23 08:43 Dose: 100 mg Trazodone HCl (Trazodone Hcl 50 Mg Tablet) 50 mg PO BEDTIME PRN PRN Reason: insomnia Vitamin D (Cholecalciferol (Vitamin D3) 25 Mcg Tablet) 25 mcg PO DAILY [facility] Last Admin: 05/27/23 08:44 Dose: 25 mcg Allergies Allergies Allergy/AdvReac Type Severity Reaction Status Date / Time Penicillins [PENICILLINS] Allergy Unknown rash Verified 05/17/23 22:12 Assessment & Plan Assessment & Plan (1) Major depression with psychotic features: Status: Acute Code(s): F32.3 - Major depressive disorder, single episode, severe with psychotic features Plan 05/19: ECT to start Saturday05/20/23- confirmed with Dr. Garcia. NPO tonight and consents will be done pre ECT tomorrow 05/20: received ECT #1 without event. no change in presentation. continue current mgmt. UA NEG. thiamine and folate started as per medicine recommendation. 05/21: ECT #2 tomorrow. stable. continue current mgmt. 05/22: ECT #2 completed, #3 scheduled for saturday. slight improvement in mood from admission. continue current mgmt. 05/23: stable. ECT #3 tomorrow. continue current mgmt. 05/24: stable, ECT #3 completed without incident. continue current mgmt. ECT #4 scheduled for saturday. 05/25: Patient remains depressed encourage food fluids check labs continue ECT monitor vital signs 05/26: Patient remains severely depressed and withdrawn not taking in adequate nutrition required IV fluids. 05/27: ECT #4 completed, pt smiled today and noted his mood is improved. trazodone DCed over w/e in hopes it would help with orthostasis. slept adequately last night. continue current mgmt. Reason for continued inpatient stay Substantial Risk for: inability to function and rapid decompensation Time Spent With Patient Time: Total time managing care of this patient today __25__ minutes.
[2023-05-27] MEDS: 0.9 % Sodium Chloride Flush 3 ML SYRINGE IVFLUSH (16:20)
[2023-05-27] MEDS: OLANZapine 7.5 MG TABLET PO (22:19)
[2023-05-28] MEDS: 0.9 % Sodium Chloride Flush 3 ML SYRINGE IVFLUSH ×3 (00:40→15:09)
[2023-05-28 08:00] VITALS: BP 130/73; PULSE 80
[2023-05-28 08:03] LABS: Glucose, Whole Blood 99 mg/dL (60-115)
[2023-05-28] MEDS: buPROPion HCl XL 150 MG TAB.ER.24H PO (08:34)
[2023-05-28] MEDS: Escitalopram Oxalate 10 MG TABLET PO (08:34)
[2023-05-28] MEDS: OLANZapine 2.5 MG TABLET PO (08:34)
[2023-05-28] MEDS: Folic Acid 1 MG TABLET PO (08:34)
[2023-05-28] MEDS: metFORMIN HCl 500 MG TABLET PO ×2 (08:34→18:10)
[2023-05-28] MEDS: Atorvastatin Calcium 20 MG TABLET PO (08:34)
[2023-05-28] MEDS: Thiamine HCL 100 MG TABLET PO (08:35)
[2023-05-28] MEDS: Multivitamin TABLET 1 TAB PO (08:35)
[2023-05-28] MEDS: Cholecalciferol (Vitamin D3) 25 MCG TABLET PO (08:35)
[2023-05-28] MEDS: lisinopriL 10 MG TABLET PO (08:35)
[2023-05-28 08:50] VITALS: BP 118/76; PULSE 86; RESP 18; TEMP 36.2; O2SAT 97
--- NOTE | 2023-05-28 14:16 | HO.PSYCHPN ---
Subjective Subjective Date of Service: 05/28/23 Reason For Visit: Major Depressive Disorder Interim History: no change from yesterday, in bed, responsive. per staff, orthostatic VS improved yesterday, denied dizziness. dep/anx 6. up for meals with encouragement. showered. Mental Status Exam Mental Status Exam Narrative: Pleasant. Engaged. Fairly presented. Organized. No SI/HI/AVH expressed. mood improved. Insight and judgment fair Diagnostics Vital Signs (24Hr): Vital Signs - 24 hr 05/27/23 19:21 05/28/23 08:50 Temperature 97.3 F 97.1 F Pulse Rate 99 86 Respiratory Rate 16 18 Blood Pressure 124/64 118/76 Pulse Oximetry 97 97 Oxygen Delivery Method Room Air BMI result Body Mass Index 24.1 Labs 05/18/23 10:11 05/26/23 18:45 Labs: Laboratory Results - last 48 hr 05/26/23 05/27/23 05/28/23 18:45 05:49 07:56 Sodium 140 Potassium 4.1 Chloride 104 Carbon Dioxide 25 Anion Gap 15 BUN 12 Creatinine 0.74 Estim Creat Clear Calc 90.2 Estimated GFR > 60 POC Glucose 88 99 Random Glucose 126 H Calcium 9.4 Medications Medications Current Medications Acetaminophen (Acetaminophen 325 Mg Tablet) 650 mg PO Q6H PRN PRN Reason: Headache/Pain Mild Scale (1-3) Last Admin: 05/20/23 20:15 Dose: 325 mg Acetaminophen (Acetaminophen 325 Mg Tablet) 650 mg PO ONCE PRN PRN Reason: Pain, Mild (Pain Scale 1-3) Al Hydroxide/Mg Hydroxide (Magnesium Hydrox/Alum Hydrox 30 Ml Oral.Susp) 30 ml PO Q6H PRN PRN Reason: Heartburn/Nausea Atorvastatin Calcium (Atorvastatin Calcium 20 Mg Tablet) 20 mg PO DAILY [facility] Last Admin: 05/28/23 08:34 Dose: 20 mg Bupropion HCl (Bupropion Hcl Xl 150 Mg Tab.Er.24h) 150 mg PO DAILY [facility] Last Admin: 05/28/23 08:34 Dose: 150 mg Escitalopram Oxalate (Escitalopram Oxalate 10 Mg Tablet) 10 mg PO DAILY [facility] Last Admin: 05/28/23 08:34 Dose: 10 mg Folic Acid (Folic Acid 1 Mg Tablet) 1 mg PO DAILY [facility] Last Admin: 05/28/23 08:34 Dose: 1 mg Hydroxyzine HCl (Hydroxyzine Hcl 25 Mg Tablet) 25 mg PO Q6H PRN PRN Reason: Anxiety Lisinopril (Lisinopril 10 Mg Tablet) 10 mg PO DAILY [facility]; Protocol Last Admin: 05/28/23 08:35 Dose: 10 mg Magnesium Hydroxide (Milk Of Magnesia 30 Ml Oral.Susp) 30 ml PO DAILY PRN PRN Reason: Constipation Metformin HCl (Metformin Hcl 500 Mg Tablet) 500 mg PO BIDWM [facility] Last Admin: 05/28/23 08:34 Dose: 500 mg Multivitamins/Vitamin C (Multivitamin Tablet) 1 tab PO DAILY [facility] Last Admin: 05/28/23 08:35 Dose: 1 tab Olanzapine (Olanzapine 2.5 Mg Tablet) 2.5 mg PO DAILY [facility] Last Admin: 05/28/23 08:34 Dose: 2.5 mg Olanzapine (Olanzapine 7.5 Mg Tablet) 7.5 mg PO BEDTIME [facility] Last Admin: 05/27/23 22:19 Dose: 7.5 mg Ondansetron HCl (Ondansetron Hcl 4 Mg/2 Ml Vial) 4 mg IVPUSH ONCE PRN PRN Reason: Nausea and Vomiting Senna (Sennosides 8.6 Mg Tablet) 17.2 mg PO Q24H PRN PRN Reason: constipation Last Admin: 05/27/23 10:56 Dose: 17.2 mg Sodium Chloride (0.9 % Sodium Chloride Flush 3 Ml Syringe) 3 ml IVFLUSH QSHIFT [facility] Last Admin: 05/28/23 08:36 Dose: 3 ml Thiamine HCl (Thiamine Hcl 100 Mg Tablet) 100 mg PO DAILY [facility] Last Admin: 05/28/23 08:35 Dose: 100 mg Trazodone HCl (Trazodone Hcl 50 Mg Tablet) 50 mg PO BEDTIME PRN PRN Reason: insomnia Vitamin D (Cholecalciferol (Vitamin D3) 25 Mcg Tablet) 25 mcg PO DAILY [facility] Last Admin: 05/28/23 08:35 Dose: 25 mcg Allergies Allergies Allergy/AdvReac Type Severity Reaction Status Date / Time Penicillins [PENICILLINS] Allergy Unknown rash Verified 05/17/23 22:12 Assessment & Plan Assessment & Plan (1) Major depression with psychotic features: Status: Acute Code(s): F32.3 - Major depressive disorder, single episode, severe with psychotic features Plan 05/19: ECT to start Saturday05/20/23- confirmed with Dr. Garcia. NPO tonight and consents will be done pre ECT tomorrow 05/20: received ECT #1 without event. no change in presentation. continue current mgmt. UA NEG. thiamine and folate started as per medicine recommendation. 05/21: ECT #2 tomorrow. stable. continue current mgmt. 05/22: ECT #2 completed, #3 scheduled for saturday. slight improvement in mood from admission. continue current mgmt. 05/23: stable. ECT #3 tomorrow. continue current mgmt. 05/24: stable, ECT #3 completed without incident. continue current mgmt. ECT #4 scheduled for saturday. 05/25: Patient remains depressed encourage food fluids check labs continue ECT monitor vital signs 05/26: Patient remains severely depressed and withdrawn not taking in adequate nutrition required IV fluids. 05/27: ECT #4 completed, pt smiled today and noted his mood is improved. trazodone DCed over w/e in hopes it would help with orthostasis. slept adequately last night. continue current mgmt. 05/28: no change in presentation from yesterday. ECT #5 tomorrow. continue current mgmt. Reason for continued inpatient stay Substantial Risk for: inability to function and rapid decompensation Time Spent With Patient Time: Total time managing care of this patient today ____ minutes.
[2023-05-28 19:40] VITALS: BP 129/73; PULSE 88; RESP 16; TEMP 36.3; O2SAT 97
[2023-05-28] MEDS: OLANZapine 7.5 MG TABLET PO (20:13)
[2023-05-29] VITALS (7 sets, daily range): BP systolic 132–164; BP diastolic 76–97; PULSE 74–96; RESP 16–20; TEMP 36.4–37.2; O2SAT 96–98
[2023-05-29] MEDS: 0.9 % Sodium Chloride Flush 3 ML SYRINGE IVFLUSH ×3 (00:09→16:16)
[2023-05-29 06:40] LABS: Glucose, Whole Blood 113 mg/dL (60-115)
--- NOTE | 2023-05-29 06:56 | P.CONAN_ITS ---
[facility] Active Problems Active Problems: All Active Problems (Updated 05/18/23 @ 16:31 by Samuel Booth MD) Major depression with psychotic features (Acute) Routine medical exam (Acute) Past Medical History Medical History HLD (hyperlipidemia) HTN (hypertension) Non-insulin dependent type 2 diabetes mellitus Family History Family history of problems with anesthesia: No Surgical History History of Problems with Anesthesia: No Social History Social History Household Members: Significant Other Housing: Apartment Do you presently have visiting nurse or other home services: No Patient Tobacco Use Status: Former Tobacco user Quit Date: 50 years ago Tobacco use type: Cigarette Smoked in Last 30 Days: No e-Cigarette/Vaping Use: Never Used Patient Interested in Nicotine Replacement: No Patient Given Instructions on How to Stop Smoking: No (n/a) Second Hand Smoke Exposure: No Use of substances other than those prescribed or required for medical reasons: Yes Substance Use Type: Marijuana Substance Use Frequency: Chronic Longstanding Last Used Substance Other:: month ago Currently Displaying Signs/Symptoms of Drug Intoxication Withdrawal: No Any prior treatment program specific to substance use: No Have you been hit, kicked, punched, or otherwise hurt by someone within the past year? If so, by whom?: No Do you feel safe in your current relationship?: Yes Is there a partner from a previous relationship who is making you feel unsafe now?: No Are you made to feel afraid or neglected: No Advance Directives: No Advance Directives Information Provided: No Do you have thoughts of harming others: None Do you have a plan to hurt others: No Plan Recently lost weight without trying: Yes How much weight loss: 14-23 pounds Eating poorly because of decreased appetite: No Nutrition screen score: 4 Nutrition Risks: Dental problems Poor oral hygiene: Yes service: No Sexual orientation: Straight/Heterosexual Meds Allergies Allergy/AdvReac Type Severity Reaction Status Date / Time Penicillins [PENICILLINS] Allergy Unknown rash Verified 05/17/23 22:12 Active Medications: Current Medications Acetaminophen (Acetaminophen 325 Mg Tablet) 650 mg PO Q6H PRN PRN Reason: Headache/Pain Mild Scale (1-3) Last Admin: 05/20/23 20:15 Dose: 325 mg Acetaminophen (Acetaminophen 325 Mg Tablet) 650 mg PO ONCE PRN PRN Reason: Pain, Mild (Pain Scale 1-3) Al Hydroxide/Mg Hydroxide (Magnesium Hydrox/Alum Hydrox 30 Ml Oral.Susp) 30 ml PO Q6H PRN PRN Reason: Heartburn/Nausea Atorvastatin Calcium (Atorvastatin Calcium 20 Mg Tablet) 20 mg PO DAILY [facility] Last Admin: 05/28/23 08:34 Dose: 20 mg Bupropion HCl (Bupropion Hcl Xl 150 Mg Tab.Er.24h) 150 mg PO DAILY [facility] Last Admin: 05/28/23 08:34 Dose: 150 mg Escitalopram Oxalate (Escitalopram Oxalate 10 Mg Tablet) 10 mg PO DAILY [facility] Last Admin: 05/28/23 08:34 Dose: 10 mg Folic Acid (Folic Acid 1 Mg Tablet) 1 mg PO DAILY [facility] Last Admin: 05/28/23 08:34 Dose: 1 mg Hydroxyzine HCl (Hydroxyzine Hcl 25 Mg Tablet) 25 mg PO Q6H PRN PRN Reason: Anxiety Lactated Ringer's (Lr) 1,000 mls @ 50 mls/hr IVCONT .Q20H [facility] Lisinopril (Lisinopril 10 Mg Tablet) 10 mg PO DAILY [facility]; Protocol Last Admin: 05/28/23 08:35 Dose: 10 mg Magnesium Hydroxide (Milk Of Magnesia 30 Ml Oral.Susp) 30 ml PO DAILY PRN PRN Reason: Constipation Metformin HCl (Metformin Hcl 500 Mg Tablet) 500 mg PO BIDWM [facility] Last Admin: 05/28/23 18:10 Dose: 500 mg Multivitamins/Vitamin C (Multivitamin Tablet) 1 tab PO DAILY [facility] Last Admin: 05/28/23 08:35 Dose: 1 tab Olanzapine (Olanzapine 2.5 Mg Tablet) 2.5 mg PO DAILY [facility] Last Admin: 05/28/23 08:34 Dose: 2.5 mg Olanzapine (Olanzapine 7.5 Mg Tablet) 7.5 mg PO BEDTIME [facility] Last Admin: 05/28/23 20:13 Dose: 7.5 mg Ondansetron HCl (Ondansetron Hcl 4 Mg/2 Ml Vial) 4 mg IVPUSH ONCE PRN PRN Reason: Nausea and Vomiting Senna (Sennosides 8.6 Mg Tablet) 17.2 mg PO Q24H PRN PRN Reason: constipation Last Admin: 05/27/23 10:56 Dose: 17.2 mg Sodium Chloride (0.9 % Sodium Chloride Flush 3 Ml Syringe) 3 ml IVFLUSH QSHIFT [facility] Last Admin: 05/29/23 00:09 Dose: 3 ml Thiamine HCl (Thiamine Hcl 100 Mg Tablet) 100 mg PO DAILY [facility] Last Admin: 05/28/23 08:35 Dose: 100 mg Trazodone HCl (Trazodone Hcl 50 Mg Tablet) 50 mg PO BEDTIME PRN PRN Reason: insomnia Vitamin D (Cholecalciferol (Vitamin D3) 25 Mcg Tablet) 25 mcg PO DAILY [facility] Last Admin: 05/28/23 08:35 Dose: 25 mcg Home Medications Medication Instructions Recorded Confirmed Last Taken Type atorvastatin 20 mg tablet 20 mg PO DAILY 05/17/23 05/17/23 05/17/23 09:16 History bupropion HCl 150 mg 24 hr tablet, 150 mg PO QAM 05/17/23 05/17/23 05/17/23 09:16 History extended release cholecalciferol (vitamin D3) 25 25 mcg PO DAILY 05/17/23 05/17/23 05/17/23 09:16 History mcg (1,000 unit) tablet citalopram 20 mg tablet 20 mg PO DAILY 05/17/23 05/17/23 05/17/23 09:16 History lisinopril 10 mg tablet 10 mg PO DAILY 05/17/23 05/17/23 05/17/23 09:16 History metformin 500 mg tablet 500 mg PO BIDWMEAL 05/17/23 05/17/23 05/17/23 09:16 History multivitamin 1 tab PO DAILY 05/17/23 05/17/23 05/17/23 09:16 History olanzapine 2.5 mg tablet 2.5 mg PO DAILY 05/17/23 05/17/23 05/17/23 09:21 History olanzapine 7.5 mg tablet 7.5 mg PO BEDTIME 05/17/23 05/17/23 05/16/23 19:46 History trazodone 100 mg tablet 100 mg PO BEDTIME 05/17/23 05/17/23 05/16/23 19:46 History Exam Exam Date and Time: May 29, 2023 0656 Height,Weight and Vital Signs: Height 5 ft 9 in Weight 74.096 kg Last Vital Signs Temp 97.5 F 05/29/23 05:49 Pulse 96 05/29/23 05:49 Resp 16 05/29/23 05:49 BP 134/82 05/29/23 05:49 Pulse Ox 98 05/29/23 05:49 O2 Del Method Room Air 05/28/23 19:40 O2 Flow Rate 2 05/27/23 08:00 Pertinent Lab Results Pertinent Lab Results: Laboratory Tests 05/18/23 05/18/23 05/18/23 08:18 10:11 14:50 WBC 11.8 H RBC 5.55 Hgb 17.2 Hct 48.2 MCV 86.8 MCH 31.0 MCHC 35.7 RDW 12.5 Plt Count 414 H MPV 8.5 L Immature Gran % (Auto) 0.3 Neut % (Auto) 80.0 H Lymph % (Auto) 9.4 L Phillips % (Auto) 9.1 Eos % (Auto) 0.8 Baso % (Auto) 0.4 Lymph # (Auto) 1.1 L Phillips # (Auto) 1.1 Eos # (Auto) 0.1 Baso # (Auto) 0.1 Abs Immat Gran (auto) 0.03 Absolute Neuts (auto) 9.5 H Absolute Nucleated RBC 0.000 Nucleated RBC % (auto) 0.0 Sodium 136 Potassium 4.3 Chloride 97 Carbon Dioxide 25 Anion Gap 18 BUN 18 H Creatinine 0.84 Estim Creat Clear Calc 79.4 Estimated GFR > 60 POC Glucose 99 Random Glucose Fasting Glucose 92 Calcium 10.1 Total Bilirubin 0.8 AST 25 ALT 30 Alkaline Phosphatase 112 Total Protein 7.3 Albumin 4.2 Triglycerides 75 Cholesterol 122 LDL Cholesterol, Calc 57 HDL Cholesterol 50 Vitamin B12 1394 H Folate 16.3 TSH 0.62 Urine Color Dark Yellow Urine Appearance Cloudy Urine pH 5.0 Ur Specific [place] >= 1.030 H Urine Protein Trace Urine Glucose (UA) Negative Urine Ketones 15 Urine Blood Negative Urine Nitrite Negative Ur Leukocyte Esterase Negative 05/19/23 05/20/23 05/21/23 07:57 07:27 08:03 WBC RBC Hgb Hct MCV MCH MCHC RDW Plt Count MPV Immature Gran % (Auto) Neut % (Auto) Lymph % (Auto) Phillips % (Auto) Eos % (Auto) Baso % (Auto) Lymph # (Auto) Phillips # (Auto) Eos # (Auto) Baso # (Auto) Abs Immat Gran (auto) Absolute Neuts (auto) Absolute Nucleated RBC Nucleated RBC % (auto) Sodium Potassium Chloride Carbon Dioxide Anion Gap BUN Creatinine Estim Creat Clear Calc Estimated GFR POC Glucose 104 110 96 Random Glucose Fasting Glucose Calcium Total Bilirubin AST ALT Alkaline Phosphatase Total Protein Albumin Triglycerides Cholesterol LDL Cholesterol, Calc HDL Cholesterol Vitamin B12 Folate TSH Urine Color Urine Appearance Urine pH Ur Specific [place] Urine Protein Urine Glucose (UA) Urine Ketones Urine Blood Urine Nitrite Ur Leukocyte Esterase 05/22/23 05/23/23 05/24/23 06:35 10:48 08:01 WBC RBC Hgb Hct MCV MCH MCHC RDW Plt Count MPV Immature Gran % (Auto) Neut % (Auto) Lymph % (Auto) Phillips % (Auto) Eos % (Auto) Baso % (Auto) Lymph # (Auto) Phillips # (Auto) Eos # (Auto) Baso # (Auto) Abs Immat Gran (auto) Absolute Neuts (auto) Absolute Nucleated RBC Nucleated RBC % (auto) Sodium Potassium Chloride Carbon Dioxide Anion Gap BUN Creatinine Estim Creat Clear Calc Estimated GFR POC Glucose 108 105 86 Random Glucose Fasting Glucose Calcium Total Bilirubin AST ALT Alkaline Phosphatase Total Protein Albumin Triglycerides Cholesterol LDL Cholesterol, Calc HDL Cholesterol Vitamin B12 Folate TSH Urine Color Urine Appearance Urine pH Ur Specific [place] Urine Protein Urine Glucose (UA) Urine Ketones Urine Blood Urine Nitrite Ur Leukocyte Esterase 05/25/23 05/25/23 05/26/23 07:51 07:59 08:08 WBC RBC Hgb Hct MCV MCH MCHC RDW Plt Count MPV Immature Gran % (Auto) Neut % (Auto) Lymph % (Auto) Phillips % (Auto) Eos % (Auto) Baso % (Auto) Lymph # (Auto) [place] # (Auto) Eos # (Auto) Baso # (Auto) Abs Immat Gran (auto) Absolute Neuts (auto) Absolute Nucleated RBC Nucleated RBC % (auto) Sodium Potassium Chloride Carbon Dioxide Anion Gap BUN Creatinine 0.76 Estim Creat Clear Calc 87.8 Estimated GFR > 60 POC Glucose 95 92 Random Glucose Fasting Glucose Calcium Total Bilirubin AST ALT Alkaline Phosphatase Total Protein Albumin Triglycerides Cholesterol LDL Cholesterol, Calc HDL Cholesterol Vitamin B12 Folate TSH Urine Color Urine Appearance Urine pH Ur Specific [place] Urine Protein Urine Glucose (UA) Urine Ketones Urine Blood Urine Nitrite Ur Leukocyte Esterase 05/26/23 05/26/23 05/27/23 12:10 18:45 05:49 WBC RBC Hgb Hct MCV MCH MCHC RDW Plt Count MPV Immature Gran % (Auto) Neut % (Auto) Lymph % (Auto) [place] % (Auto) Eos % (Auto) Baso % (Auto) Lymph # (Auto) [place] # (Auto) Eos # (Auto) Baso # (Auto) Abs Immat Gran (auto) Absolute Neuts (auto) Absolute Nucleated RBC Nucleated RBC % (auto) Sodium 140 140 Potassium 4.2 4.1 Chloride 103 104 Carbon Dioxide 27 25 Anion Gap 14 15 BUN 13 12 Creatinine 0.83 0.74 Estim Creat Clear Calc 80.4 90.2 Estimated GFR > 60 > 60 POC Glucose 88 Random Glucose 100 126 H Fasting Glucose Calcium 9.7 9.4 Total Bilirubin AST ALT Alkaline Phosphatase Total Protein Albumin Triglycerides Cholesterol LDL Cholesterol, Calc HDL Cholesterol Vitamin B12 Folate TSH Urine Color Urine Appearance Urine pH Ur Specific [place] Urine Protein Urine Glucose (UA) Urine Ketones Urine Blood Urine Nitrite Ur Leukocyte Esterase 05/28/23 05/29/23 07:56 06:38 WBC RBC Hgb Hct MCV MCH MCHC RDW Plt Count MPV Immature Gran % (Auto) Neut % (Auto) Lymph % (Auto) [place] % (Auto) Eos % (Auto) Baso % (Auto) Lymph # (Auto) [place] # (Auto) Eos # (Auto) Baso # (Auto) Abs Immat Gran (auto) Absolute Neuts (auto) Absolute Nucleated RBC Nucleated RBC % (auto) Sodium Potassium Chloride Carbon Dioxide Anion Gap BUN Creatinine Estim Creat Clear Calc Estimated GFR POC Glucose 99 113 Random Glucose Fasting Glucose Calcium Total Bilirubin AST ALT Alkaline Phosphatase Total Protein Albumin Triglycerides Cholesterol LDL Cholesterol, Calc HDL Cholesterol Vitamin B12 Folate TSH Urine Color Urine Appearance Urine pH Ur Specific [place] Urine Protein Urine Glucose (UA) Urine Ketones Urine Blood Urine Nitrite Ur Leukocyte Esterase Airway Mallampati Class: II TM Dist: >3cm Neck ROM: Full Heart: rrr Lungs: cta Assessment and Plan Assessment Anesthesia Assessment: Anesthesia Plan Discussed and Chart Reviewed Final Anesthetic Review Family History of Problems with Anesthesia: No History of Problems with Anesthesia: No NPO: Yes ASA Class: III Final Preanesthetic Review: No Changes in Pt Med Stat, Meds/Allgs Chart Reviewed and Consent Obtained/Reviewed Patient Risk: Intermediate Procedure Risk: Intermediate Anesthetic Plan Anesthetic Plan: GA Disposition: Standard PACU
--- NOTE | 2023-05-29 07:51 | MHC.SHP ---
Pre-Procedural Eval Section A Date of Service: 05/29/23 Changes since office visit: Yes New Medical Problems and Yes Patient answered all questions; No Cold of Flu in the past 2 weeks and No Changes in Medication The History & Physical has been completed within 30 days and I have reviewed it.: Yes Section B Chief Complaint: Major Depressive Disorder Allergies: Allergies Allergy/AdvReac Type Severity Reaction Status Date / Time Penicillins [PENICILLINS] Allergy Unknown rash Verified 05/17/23 22:12 Plan I have reviewed the history and physical and performed a pertinent physical examination on my patient. No changes have occurred unless specified. Time Spent With Patient Time: Total time managing care of this patient today ____ minutes.
--- NOTE | 2023-05-29 08:04 | HO.ECTPROC ---
ECT Procedure Note Diagnosis/Treatment Date of Service: 05/29/23 Diagnosis: Major Depressive Disorder Previous ECT Date: 05/27/23 Current Treatment Number: 5 Treatment: Series Interval Clinical Notes: pt with some improvement Time: Total time managing care of this patient today ____ minutes. ECT Settings Device: THYMATRON DGx Electrode Placement: Right Unilateral Program/Pulse Width: 0.50 Energy Percent: 100 Seizure Duration By EEG (in seconds): 32 Medications Administration General Anesthetic: Etomidate (14) Muscle Relaxant: Succinylcholine (100) Ancillary Medications Analgesics: Torodol - Pre ECT Anti-emetics: Zofran - Pre ECT Miscillaneous Medications: Propofol (30 mg post op ) Airway Management Airway Management: Bag Mask Ventilation Treatment Recommendations No Changes Recommended: No change Notes: consider change to bf or rtlf if no improvent transient htn noted Pt Tolerated Procedure w/o Issue: Yes
[2023-05-29] MEDS: lisinopriL 10 MG TABLET PO (09:17)
[2023-05-29] MEDS: Atorvastatin Calcium 20 MG TABLET PO (09:17)
[2023-05-29] MEDS: Escitalopram Oxalate 10 MG TABLET PO (09:17)
[2023-05-29] MEDS: Folic Acid 1 MG TABLET PO (09:17)
[2023-05-29] MEDS: Multivitamin TABLET 1 TAB PO (09:18)
[2023-05-29] MEDS: Cholecalciferol (Vitamin D3) 25 MCG TABLET PO (09:18)
[2023-05-29] MEDS: Thiamine HCL 100 MG TABLET PO (09:18)
[2023-05-29] MEDS: buPROPion HCl XL 150 MG TAB.ER.24H PO (09:18)
[2023-05-29] MEDS: OLANZapine 2.5 MG TABLET PO (09:19)
[2023-05-29] MEDS: metFORMIN HCl 500 MG TABLET PO ×2 (09:19→18:14)
--- NOTE | 2023-05-29 15:46 | HO.PSYCHPN ---
Subjective Subjective Date of Service: 05/29/23 Reason For Visit: Major Depressive Disorder Interim History: calm cooperative. ECT completed. observed in the [place] in the afternoon. per staff, continues with poor PO intake. slept well. Mental Status Exam Mental Status Exam Narrative: Pleasant. Engaged. Fairly presented. Organized. No SI/HI/AVH expressed. mood improved. Insight and judgment fair Diagnostics Vital Signs (24Hr): Vital Signs - 24 hr 05/28/23 19:40 05/29/23 05:49 05/29/23 07:55 Temperature 97.3 F 97.5 F 99.0 F Pulse Rate 88 96 74 Respiratory Rate 16 16 16 Blood Pressure 129/73 134/82 159/85 H Pulse Oximetry 97 98 98 Oxygen Delivery Method Room Air Nasal Cannula with ETCO2 Oxygen Flow Rate 2 05/29/23 08:00 05/29/23 08:00 05/29/23 08:05 Temperature Pulse Rate 79 75 86 Respiratory Rate 18 16 Blood Pressure 164/97 H 151/89 H 160/87 H Pulse Oximetry 98 96 Oxygen Delivery Method Nasal Cannula with ETCO2 Room Air Oxygen Flow Rate 2 05/29/23 08:10 05/29/23 08:27 Temperature 98.1 F Pulse Rate 84 79 Respiratory Rate 20 17 Blood Pressure 161/88 H 150/93 H Pulse Oximetry 96 96 Oxygen Delivery Method Room Air Room Air Oxygen Flow Rate BMI result Body Mass Index 24.1 Labs 05/18/23 10:11 05/26/23 18:45 Labs: Laboratory Results - last 48 hr 05/28/23 05/29/23 07:56 06:38 POC Glucose 99 113 Medications Medications Current Medications Acetaminophen (Acetaminophen 325 Mg Tablet) 650 mg PO Q6H PRN PRN Reason: Headache/Pain Mild Scale (1-3) Last Admin: 05/20/23 20:15 Dose: 325 mg Acetaminophen (Acetaminophen 325 Mg Tablet) 650 mg PO ONCE PRN PRN Reason: Pain, Mild (Pain Scale 1-3) Al Hydroxide/Mg Hydroxide (Magnesium Hydrox/Alum Hydrox 30 Ml Oral.Susp) 30 ml PO Q6H PRN PRN Reason: Heartburn/Nausea Atorvastatin Calcium (Atorvastatin Calcium 20 Mg Tablet) 20 mg PO DAILY [facility] Last Admin: 05/29/23 09:17 Dose: 20 mg Bupropion HCl (Bupropion Hcl Xl 150 Mg Tab.Er.24h) 150 mg PO DAILY [facility] Last Admin: 05/29/23 09:18 Dose: 150 mg Escitalopram Oxalate (Escitalopram Oxalate 10 Mg Tablet) 10 mg PO DAILY [facility] Last Admin: 05/29/23 09:17 Dose: 10 mg Folic Acid (Folic Acid 1 Mg Tablet) 1 mg PO DAILY [facility] Last Admin: 05/29/23 09:17 Dose: 1 mg Hydroxyzine HCl (Hydroxyzine Hcl 25 Mg Tablet) 25 mg PO Q6H PRN PRN Reason: Anxiety Lisinopril (Lisinopril 10 Mg Tablet) 10 mg PO DAILY [facility]; Protocol Last Admin: 05/29/23 09:17 Dose: 10 mg Magnesium Hydroxide (Milk Of Magnesia 30 Ml Oral.Susp) 30 ml PO DAILY PRN PRN Reason: Constipation Metformin HCl (Metformin Hcl 500 Mg Tablet) 500 mg PO BIDWM [facility] Last Admin: 05/29/23 09:19 Dose: 500 mg Multivitamins/Vitamin C (Multivitamin Tablet) 1 tab PO DAILY [facility] Last Admin: 05/29/23 09:18 Dose: 1 tab Olanzapine (Olanzapine 2.5 Mg Tablet) 2.5 mg PO DAILY [facility] Last Admin: 05/29/23 09:19 Dose: 2.5 mg Olanzapine (Olanzapine 7.5 Mg Tablet) 7.5 mg PO BEDTIME [facility] Last Admin: 05/28/23 20:13 Dose: 7.5 mg Ondansetron HCl (Ondansetron Hcl 4 Mg/2 Ml Vial) 4 mg IVPUSH ONCE PRN PRN Reason: Nausea and Vomiting Senna (Sennosides 8.6 Mg Tablet) 17.2 mg PO Q24H PRN PRN Reason: constipation Last Admin: 05/27/23 10:56 Dose: 17.2 mg Sodium Chloride (0.9 % Sodium Chloride Flush 3 Ml Syringe) 3 ml IVFLUSH QSHIFT [facility] Last Admin: 05/29/23 09:20 Dose: 3 ml Thiamine HCl (Thiamine Hcl 100 Mg Tablet) 100 mg PO DAILY [facility] Last Admin: 05/29/23 09:18 Dose: 100 mg Trazodone HCl (Trazodone Hcl 50 Mg Tablet) 50 mg PO BEDTIME PRN PRN Reason: insomnia Vitamin D (Cholecalciferol (Vitamin D3) 25 Mcg Tablet) 25 mcg PO DAILY [facility] Last Admin: 05/29/23 09:18 Dose: 25 mcg Allergies Allergies Allergy/AdvReac Type Severity Reaction Status Date / Time Penicillins [PENICILLINS] Allergy Unknown rash Verified 05/17/23 22:12 Assessment & Plan Assessment & Plan (1) Major depression with psychotic features: Status: Acute Code(s): F32.3 - Major depressive disorder, single episode, severe with psychotic features Plan 05/19: ECT to start Saturday05/20/23- confirmed with Dr. Garcia. NPO tonight and consents will be done pre ECT tomorrow 05/20: received ECT #1 without event. no change in presentation. continue current mgmt. UA NEG. thiamine and folate started as per medicine recommendation. 05/21: ECT #2 tomorrow. stable. continue current mgmt. 05/22: ECT #2 completed, #3 scheduled for saturday. slight improvement in mood from admission. continue current mgmt. 05/23: stable. ECT #3 tomorrow. continue current mgmt. 05/24: stable, ECT #3 completed without incident. continue current mgmt. ECT #4 scheduled for saturday. 05/25: Patient remains depressed encourage food fluids check labs continue ECT monitor vital signs 05/26: Patient remains severely depressed and withdrawn not taking in adequate nutrition required IV fluids. 05/27: ECT #4 completed, pt smiled today and noted his mood is improved. trazodone DCed over w/e in hopes it would help with orthostasis. slept adequately last night. continue current mgmt. 05/28: no change in presentation from yesterday. ECT #5 tomorrow. continue current mgmt. 05/29: continues poor PO intake. ECT #5 completed today. slightly more active. Reason for continued inpatient stay Substantial Risk for: inability to function and rapid decompensation Time Spent With Patient Time: Total time managing care of this patient today ____ minutes.
[2023-05-29] MEDS: OLANZapine 7.5 MG TABLET PO (20:26)
[2023-05-30] MEDS: 0.9 % Sodium Chloride Flush 3 ML SYRINGE IVFLUSH ×4 (00:12→21:08)
[2023-05-30 07:00] VITALS: BMI 24.0
[2023-05-30 07:12] VITALS: BP 120/77; PULSE 90; RESP 14; TEMP 36.9; O2SAT 98
[2023-05-30 07:50] LABS: Glucose, Whole Blood 111 mg/dL (60-115)
[2023-05-30] MEDS: Escitalopram Oxalate 10 MG TABLET PO (08:15)
[2023-05-30] MEDS: Cholecalciferol (Vitamin D3) 25 MCG TABLET PO (08:15)
[2023-05-30] MEDS: buPROPion HCl XL 150 MG TAB.ER.24H PO (08:15)
[2023-05-30] MEDS: Multivitamin TABLET 1 TAB PO (08:15)
[2023-05-30] MEDS: Thiamine HCL 100 MG TABLET PO (08:15)
[2023-05-30] MEDS: lisinopriL 10 MG TABLET PO (08:15)
[2023-05-30] MEDS: metFORMIN HCl 500 MG TABLET PO ×2 (08:15→17:31)
[2023-05-30] MEDS: Folic Acid 1 MG TABLET PO (08:15)
[2023-05-30] MEDS: OLANZapine 2.5 MG TABLET PO (08:15)
[2023-05-30] MEDS: Atorvastatin Calcium 20 MG TABLET PO (08:15)
[2023-05-30 08:50] VITALS: BP 119/67; PULSE 83
--- NOTE | 2023-05-30 15:51 | HO.PSYCHPN ---
Subjective Subjective Date of Service: 05/30/23 Reason For Visit: Major Depressive Disorder Interim History: in bed, responsive, pleasant. asked about deciding when to discharge; MD explained. per staff, taking meds and eating better. ate 50% breakfast and 75% lunch yesterday. not orthostatic this morning. stated his thoughts are clearing. Mental Status Exam Mental Status Exam Narrative: Pleasant. Engaged. Fairly presented. Organized. No SI/HI/AVH expressed. mood improved. Insight and judgment fair Diagnostics Vital Signs (24Hr): Vital Signs - 24 hr 05/29/23 20:04 05/30/23 07:12 05/30/23 08:50 Temperature 97.9 F 98.5 F Pulse Rate 94 90 83 Respiratory Rate 16 14 Blood Pressure 132/76 120/77 119/67 Pulse Oximetry 98 98 Oxygen Delivery Method Room Air Room Air BMI result Body Mass Index 24.0 Labs 05/18/23 10:11 05/26/23 18:45 Labs: Laboratory Results - last 48 hr 05/29/23 05/30/23 06:38 07:45 POC Glucose 113 111 Medications Medications Current Medications Acetaminophen (Acetaminophen 325 Mg Tablet) 650 mg PO Q6H PRN PRN Reason: Headache/Pain Mild Scale (1-3) Last Admin: 05/20/23 20:15 Dose: 325 mg Acetaminophen (Acetaminophen 325 Mg Tablet) 650 mg PO ONCE PRN PRN Reason: Pain, Mild (Pain Scale 1-3) Al Hydroxide/Mg Hydroxide (Magnesium Hydrox/Alum Hydrox 30 Ml Oral.Susp) 30 ml PO Q6H PRN PRN Reason: Heartburn/Nausea Atorvastatin Calcium (Atorvastatin Calcium 20 Mg Tablet) 20 mg PO DAILY [facility] Last Admin: 05/30/23 08:15 Dose: 20 mg Bupropion HCl (Bupropion Hcl Xl 150 Mg Tab.Er.24h) 150 mg PO DAILY [facility] Last Admin: 05/30/23 08:15 Dose: 150 mg Escitalopram Oxalate (Escitalopram Oxalate 10 Mg Tablet) 10 mg PO DAILY [facility] Last Admin: 05/30/23 08:15 Dose: 10 mg Folic Acid (Folic Acid 1 Mg Tablet) 1 mg PO DAILY [facility] Last Admin: 05/30/23 08:15 Dose: 1 mg Hydroxyzine HCl (Hydroxyzine Hcl 25 Mg Tablet) 25 mg PO Q6H PRN PRN Reason: Anxiety Lisinopril (Lisinopril 10 Mg Tablet) 10 mg PO DAILY [facility]; Protocol Last Admin: 05/30/23 08:15 Dose: 10 mg Magnesium Hydroxide (Milk Of Magnesia 30 Ml Oral.Susp) 30 ml PO DAILY PRN PRN Reason: Constipation Metformin HCl (Metformin Hcl 500 Mg Tablet) 500 mg PO BIDWM [facility] Last Admin: 05/30/23 08:15 Dose: 500 mg Multivitamins/Vitamin C (Multivitamin Tablet) 1 tab PO DAILY [facility] Last Admin: 05/30/23 08:15 Dose: 1 tab Olanzapine (Olanzapine 2.5 Mg Tablet) 2.5 mg PO DAILY [facility] Last Admin: 05/30/23 08:15 Dose: 2.5 mg Olanzapine (Olanzapine 7.5 Mg Tablet) 7.5 mg PO BEDTIME [facility] Last Admin: 05/29/23 20:26 Dose: 7.5 mg Ondansetron HCl (Ondansetron Hcl 4 Mg/2 Ml Vial) 4 mg IVPUSH ONCE PRN PRN Reason: Nausea and Vomiting Senna (Sennosides 8.6 Mg Tablet) 17.2 mg PO Q24H PRN PRN Reason: constipation Last Admin: 05/27/23 10:56 Dose: 17.2 mg Sodium Chloride (0.9 % Sodium Chloride Flush 3 Ml Syringe) 3 ml IVFLUSH QSHIFT [facility] Last Admin: 05/30/23 00:12 Dose: 3 ml Thiamine HCl (Thiamine Hcl 100 Mg Tablet) 100 mg PO DAILY [facility] Last Admin: 05/30/23 08:15 Dose: 100 mg Trazodone HCl (Trazodone Hcl 50 Mg Tablet) 50 mg PO BEDTIME PRN PRN Reason: insomnia Vitamin D (Cholecalciferol (Vitamin D3) 25 Mcg Tablet) 25 mcg PO DAILY [facility] Last Admin: 05/30/23 08:15 Dose: 25 mcg Allergies Allergies Allergy/AdvReac Type Severity Reaction Status Date / Time Penicillins [PENICILLINS] Allergy Unknown rash Verified 05/17/23 22:12 Assessment & Plan Assessment & Plan (1) Major depression with psychotic features: Status: Acute Code(s): F32.3 - Major depressive disorder, single episode, severe with psychotic features Plan 05/19: ECT to start Saturday05/20/23- confirmed with Dr. Garcia. NPO tonight and consents will be done pre ECT tomorrow 05/20: received ECT #1 without event. no change in presentation. continue current mgmt. UA NEG. thiamine and folate started as per medicine recommendation. 05/21: ECT #2 tomorrow. stable. continue current mgmt. 05/22: ECT #2 completed, #3 scheduled for saturday. slight improvement in mood from admission. continue current mgmt. 05/23: stable. ECT #3 tomorrow. continue current mgmt. 05/24: stable, ECT #3 completed without incident. continue current mgmt. ECT #4 scheduled for saturday. 05/25: Patient remains depressed encourage food fluids check labs continue ECT monitor vital signs 05/26: Patient remains severely depressed and withdrawn not taking in adequate nutrition required IV fluids. 05/27: ECT #4 completed, pt smiled today and noted his mood is improved. trazodone DCed over w/e in hopes it would help with orthostasis. slept adequately last night. continue current mgmt. 05/28: no change in presentation from yesterday. ECT #5 tomorrow. continue current mgmt. 05/29: continues poor PO intake. ECT #5 completed today. slightly more active. 05/30: continue current mgmt. ECT #6 tomorrow. Reason for continued inpatient stay Substantial Risk for: inability to function and rapid decompensation Time Spent With Patient Time: Total time managing care of this patient today __25__ minutes.
[2023-05-30 20:02] VITALS: BP 140/73; PULSE 92; RESP 18; TEMP 37.2; O2SAT 99
[2023-05-30] MEDS: OLANZapine 7.5 MG TABLET PO (21:08)
[2023-05-31] VITALS (9 sets, daily range): BP systolic 114–166; BP diastolic 68–99; PULSE 80–95; RESP 14–19; TEMP 36.2–36.8; O2SAT 94–98
[2023-05-31 07:03] LABS: Glucose, Whole Blood 102 mg/dL (60-115)
--- NOTE | 2023-05-31 07:14 | HO.ANESPROP2 ---
[facility] Active Problems Active Problems: All Active Problems (Updated 05/18/23 @ 16:31 by Samuel Booth MD) Major depression with psychotic features (Acute) Routine medical exam (Acute) Past Medical History Medical History HLD (hyperlipidemia) HTN (hypertension) Non-insulin dependent type 2 diabetes mellitus Family History Family history of problems with anesthesia: No Surgical History History of Problems with Anesthesia: No Social History Social History Household Members: Significant Other Housing: Apartment Do you presently have visiting nurse or other home services: No Patient Tobacco Use Status: Former Tobacco user Quit Date: 50 years ago Tobacco use type: Cigarette Smoked in Last 30 Days: No e-Cigarette/Vaping Use: Never Used Patient Interested in Nicotine Replacement: No Patient Given Instructions on How to Stop Smoking: No (n/a) Second Hand Smoke Exposure: No Use of substances other than those prescribed or required for medical reasons: Yes Substance Use Type: Marijuana Substance Use Frequency: Chronic Longstanding Last Used Substance Other:: month ago Currently Displaying Signs/Symptoms of Drug Intoxication Withdrawal: No Any prior treatment program specific to substance use: No Have you been hit, kicked, punched, or otherwise hurt by someone within the past year? If so, by whom?: No Do you feel safe in your current relationship?: Yes Is there a partner from a previous relationship who is making you feel unsafe now?: No Are you made to feel afraid or neglected: No Advance Directives: No Advance Directives Information Provided: No Do you have thoughts of harming others: None Do you have a plan to hurt others: No Plan Recently lost weight without trying: Yes How much weight loss: 14-23 pounds Eating poorly because of decreased appetite: No Nutrition screen score: 4 Nutrition Risks: Dental problems Poor oral hygiene: Yes service: No Sexual orientation: Straight/Heterosexual Meds Allergies Allergy/AdvReac Type Severity Reaction Status Date / Time Penicillins [PENICILLINS] Allergy Unknown rash Verified 05/17/23 22:12 Active Medications: Current Medications Acetaminophen (Acetaminophen 325 Mg Tablet) 650 mg PO Q6H PRN PRN Reason: Headache/Pain Mild Scale (1-3) Last Admin: 05/20/23 20:15 Dose: 325 mg Acetaminophen (Acetaminophen 325 Mg Tablet) 650 mg PO ONCE PRN PRN Reason: Pain, Mild (Pain Scale 1-3) Al Hydroxide/Mg Hydroxide (Magnesium Hydrox/Alum Hydrox 30 Ml Oral.Susp) 30 ml PO Q6H PRN PRN Reason: Heartburn/Nausea Atorvastatin Calcium (Atorvastatin Calcium 20 Mg Tablet) 20 mg PO DAILY [facility] Last Admin: 05/30/23 08:15 Dose: 20 mg Bupropion HCl (Bupropion Hcl Xl 150 Mg Tab.Er.24h) 150 mg PO DAILY [facility] Last Admin: 05/30/23 08:15 Dose: 150 mg Escitalopram Oxalate (Escitalopram Oxalate 10 Mg Tablet) 10 mg PO DAILY [facility] Last Admin: 05/30/23 08:15 Dose: 10 mg Folic Acid (Folic Acid 1 Mg Tablet) 1 mg PO DAILY [facility] Last Admin: 05/30/23 08:15 Dose: 1 mg Hydroxyzine HCl (Hydroxyzine Hcl 25 Mg Tablet) 25 mg PO Q6H PRN PRN Reason: Anxiety Lactated Ringer's (Lr) 1,000 mls @ 50 mls/hr IVCONT .Q20H [facility] Lisinopril (Lisinopril 10 Mg Tablet) 10 mg PO DAILY [facility]; Protocol Last Admin: 05/30/23 08:15 Dose: 10 mg Magnesium Hydroxide (Milk Of Magnesia 30 Ml Oral.Susp) 30 ml PO DAILY PRN PRN Reason: Constipation Metformin HCl (Metformin Hcl 500 Mg Tablet) 500 mg PO BIDWM [facility] Last Admin: 05/30/23 17:31 Dose: 500 mg Multivitamins/Vitamin C (Multivitamin Tablet) 1 tab PO DAILY [facility] Last Admin: 05/30/23 08:15 Dose: 1 tab Olanzapine (Olanzapine 2.5 Mg Tablet) 2.5 mg PO DAILY [facility] Last Admin: 05/30/23 08:15 Dose: 2.5 mg Olanzapine (Olanzapine 7.5 Mg Tablet) 7.5 mg PO BEDTIME [facility] Last Admin: 05/30/23 21:08 Dose: 7.5 mg Ondansetron HCl (Ondansetron Hcl 4 Mg/2 Ml Vial) 4 mg IVPUSH ONCE PRN PRN Reason: Nausea and Vomiting Senna (Sennosides 8.6 Mg Tablet) 17.2 mg PO Q24H PRN PRN Reason: constipation Last Admin: 05/27/23 10:56 Dose: 17.2 mg Sodium Chloride (0.9 % Sodium Chloride Flush 3 Ml Syringe) 3 ml IVFLUSH QSHIFT [facility] Last Admin: 05/30/23 21:08 Dose: 3 ml Thiamine HCl (Thiamine Hcl 100 Mg Tablet) 100 mg PO DAILY [facility] Last Admin: 05/30/23 08:15 Dose: 100 mg Trazodone HCl (Trazodone Hcl 50 Mg Tablet) 50 mg PO BEDTIME PRN PRN Reason: insomnia Vitamin D (Cholecalciferol (Vitamin D3) 25 Mcg Tablet) 25 mcg PO DAILY [facility] Last Admin: 05/30/23 08:15 Dose: 25 mcg Home Medications Medication Instructions Recorded Confirmed Last Taken Type atorvastatin 20 mg tablet 20 mg PO DAILY 05/17/23 05/17/23 05/17/23 09:16 History bupropion HCl 150 mg 24 hr tablet, 150 mg PO QAM 05/17/23 05/17/23 05/17/23 09:16 History extended release cholecalciferol (vitamin D3) 25 25 mcg PO DAILY 05/17/23 05/17/23 05/17/23 09:16 History mcg (1,000 unit) tablet citalopram 20 mg tablet 20 mg PO DAILY 05/17/23 05/17/23 05/17/23 09:16 History lisinopril 10 mg tablet 10 mg PO DAILY 05/17/23 05/17/23 05/17/23 09:16 History metformin 500 mg tablet 500 mg PO BIDWMEAL 05/17/23 05/17/23 05/17/23 09:16 History multivitamin 1 tab PO DAILY 05/17/23 05/17/23 05/17/23 09:16 History olanzapine 2.5 mg tablet 2.5 mg PO DAILY 05/17/23 05/17/23 05/17/23 09:21 History olanzapine 7.5 mg tablet 7.5 mg PO BEDTIME 05/17/23 05/17/23 05/16/23 19:46 History trazodone 100 mg tablet 100 mg PO BEDTIME 05/17/23 05/17/23 05/16/23 19:46 History Exam Exam Date and Time: May 31, [id number] Height,Weight and Vital Signs: Height 5 ft 9 in Weight 73.754 kg Last Vital Signs Temp 97.3 F 05/31/23 07:02 Pulse 88 05/31/23 07:02 Resp 14 05/31/23 07:02 BP 153/88 H 05/31/23 07:02 Pulse Ox 96 05/31/23 07:02 O2 Del Method Room Air 05/31/23 07:02 uO2 Flow Rate 2 05/29/23 08:00 Pertinent Lab Results Pertinent Lab Results: Laboratory Tests 05/18/23 05/18/23 05/18/23 08:18 10:11 14:50 WBC 11.8 H RBC 5.55 Hgb 17.2 Hct 48.2 MCV 86.8 MCH 31.0 MCHC 35.7 RDW 12.5 Plt Count 414 H MPV 8.5 L Immature Gran % (Auto) 0.3 Neut % (Auto) 80.0 H Lymph % (Auto) 9.4 L [place] % (Auto) 9.1 Eos % (Auto) 0.8 Baso % (Auto) 0.4 Lymph # (Auto) 1.1 L [place] # (Auto) 1.1 Eos # (Auto) 0.1 Baso # (Auto) 0.1 Abs Immat Gran (auto) 0.03 Absolute Neuts (auto) 9.5 H Absolute Nucleated RBC 0.000 Nucleated RBC % (auto) 0.0 Sodium 136 Potassium 4.3 Chloride 97 Carbon Dioxide 25 Anion Gap 18 BUN 18 H Creatinine 0.84 Estim Creat Clear Calc 79.4 Estimated GFR > 60 POC Glucose 99 Random Glucose Fasting Glucose 92 Calcium 10.1 Total Bilirubin 0.8 AST 25 ALT 30 Alkaline Phosphatase 112 Total Protein 7.3 Albumin 4.2 Triglycerides 75 Cholesterol 122 LDL Cholesterol, Calc 57 HDL Cholesterol 50 Vitamin B12 1394 H Folate 16.3 TSH 0.62 Urine Color Dark Yellow Urine Appearance Cloudy Urine pH 5.0 Ur Specific Ferdinand >= 1.030 H Urine Protein Trace Urine Glucose (UA) Negative Urine Ketones 15 Urine Blood Negative Urine Nitrite Negative Ur Leukocyte Esterase Negative 05/19/23 05/20/23 05/21/23 07:57 07:27 08:03 WBC RBC Hgb Hct MCV MCH MCHC RDW Plt Count MPV Immature Gran % (Auto) Neut % (Auto) Lymph % (Auto) [place] % (Auto) Eos % (Auto) Baso % (Auto) Lymph # (Auto) [place] # (Auto) Eos # (Auto) Baso # (Auto) Abs Immat Gran (auto) Absolute Neuts (auto) Absolute Nucleated RBC Nucleated RBC % (auto) Sodium Potassium Chloride Carbon Dioxide Anion Gap BUN Creatinine Estim Creat Clear Calc Estimated GFR POC Glucose 104 110 96 Random Glucose Fasting Glucose Calcium Total Bilirubin AST ALT Alkaline Phosphatase Total Protein Albumin Triglycerides Cholesterol LDL Cholesterol, Calc HDL Cholesterol Vitamin B12 Folate TSH Urine Color Urine Appearance Urine pH Ur Specific [place] Urine Protein Urine Glucose (UA) Urine Ketones Urine Blood Urine Nitrite Ur Leukocyte Esterase 05/22/23 05/23/23 05/24/23 06:35 10:48 08:01 WBC RBC Hgb Hct MCV MCH MCHC RDW Plt Count MPV Immature Gran % (Auto) Neut % (Auto) Lymph % (Auto) [place] % (Auto) Eos % (Auto) Baso % (Auto) Lymph # (Auto) [place] # (Auto) Eos # (Auto) Baso # (Auto) Abs Immat Gran (auto) Absolute Neuts (auto) Absolute Nucleated RBC Nucleated RBC % (auto) Sodium Potassium Chloride Carbon Dioxide Anion Gap BUN Creatinine Estim Creat Clear Calc Estimated GFR POC Glucose 108 105 86 Random Glucose Fasting Glucose Calcium Total Bilirubin AST ALT Alkaline Phosphatase Total Protein Albumin Triglycerides Cholesterol LDL Cholesterol, Calc HDL Cholesterol Vitamin B12 Folate TSH Urine Color Urine Appearance Urine pH Ur Specific [place] Urine Protein Urine Glucose (UA) Urine Ketones Urine Blood Urine Nitrite Ur Leukocyte Esterase 05/25/23 05/25/23 05/26/23 07:51 07:59 08:08 WBC RBC Hgb Hct MCV MCH MCHC RDW Plt Count MPV Immature Gran % (Auto) Neut % (Auto) Lymph % (Auto) [place] % (Auto) Eos % (Auto) Baso % (Auto) Lymph # (Auto) [place] # (Auto) Eos # (Auto) Baso # (Auto) Abs Immat Gran (auto) Absolute Neuts (auto) Absolute Nucleated RBC Nucleated RBC % (auto) Sodium Potassium Chloride Carbon Dioxide Anion Gap BUN Creatinine 0.76 Estim Creat Clear Calc 87.8 Estimated GFR > 60 POC Glucose 95 92 Random Glucose Fasting Glucose Calcium Total Bilirubin AST ALT Alkaline Phosphatase Total Protein Albumin Triglycerides Cholesterol LDL Cholesterol, Calc HDL Cholesterol Vitamin B12 Folate TSH Urine Color Urine Appearance Urine pH Ur Specific [place] Urine Protein Urine Glucose (UA) Urine Ketones Urine Blood Urine Nitrite Ur Leukocyte Esterase 05/26/23 05/26/23 05/27/23 12:10 18:45 05:49 WBC RBC Hgb Hct MCV MCH MCHC RDW Plt Count MPV Immature Gran % (Auto) Neut % (Auto) Lymph % (Auto) [place] % (Auto) Eos % (Auto) Baso % (Auto) Lymph # (Auto) [place] # (Auto) Eos # (Auto) Baso # (Auto) Abs Immat Gran (auto) Absolute Neuts (auto) Absolute Nucleated RBC Nucleated RBC % (auto) Sodium 140 140 Potassium 4.2 4.1 Chloride 103 104 Carbon Dioxide 27 25 Anion Gap 14 15 BUN 13 12 Creatinine 0.83 0.74 Estim Creat Clear Calc 80.4 90.2 Estimated GFR > 60 > 60 POC Glucose 88 Random Glucose 100 126 H Fasting Glucose Calcium 9.7 9.4 Total Bilirubin AST ALT Alkaline Phosphatase Total Protein Albumin Triglycerides Cholesterol LDL Cholesterol, Calc HDL Cholesterol Vitamin B12 Folate TSH Urine Color Urine Appearance Urine pH Ur Specific [place] Urine Protein Urine Glucose (UA) Urine Ketones Urine Blood Urine Nitrite Ur Leukocyte Esterase 05/28/23 05/29/23 05/30/23 07:56 06:38 07:45 WBC RBC Hgb Hct MCV MCH MCHC RDW Plt Count MPV Immature Gran % (Auto) Neut % (Auto) Lymph % (Auto) [place] % (Auto) Eos % (Auto) Baso % (Auto) Lymph # (Auto) [place] # (Auto) Eos # (Auto) Baso # (Auto) Abs Immat Gran (auto) Absolute Neuts (auto) Absolute Nucleated RBC Nucleated RBC % (auto) Sodium Potassium Chloride Carbon Dioxide Anion Gap BUN Creatinine Estim Creat Clear Calc Estimated GFR POC Glucose 99 113 111 Random Glucose Fasting Glucose Calcium Total Bilirubin AST ALT Alkaline Phosphatase Total Protein Albumin Triglycerides Cholesterol LDL Cholesterol, Calc HDL Cholesterol Vitamin B12 Folate TSH Urine Color Urine Appearance Urine pH Ur Specific [place] Urine Protein Urine Glucose (UA) Urine Ketones Urine Blood Urine Nitrite Ur Leukocyte Esterase 05/31/23 07:00 WBC RBC Hgb Hct MCV MCH MCHC RDW Plt Count MPV Immature Gran % (Auto) Neut % (Auto) Lymph % (Auto) [place] % (Auto) Eos % (Auto) Baso % (Auto) Lymph # (Auto) [place] # (Auto) Eos # (Auto) Baso # (Auto) Abs Immat Gran (auto) Absolute Neuts (auto) Absolute Nucleated RBC Nucleated RBC % (auto) Sodium Potassium Chloride Carbon Dioxide Anion Gap BUN Creatinine Estim Creat Clear Calc Estimated GFR POC Glucose 102 Random Glucose Fasting Glucose Calcium Total Bilirubin AST ALT Alkaline Phosphatase Total Protein Albumin Triglycerides Cholesterol LDL Cholesterol, Calc HDL Cholesterol Vitamin B12 Folate TSH Urine Color Urine Appearance Urine pH Ur Specific [place] Urine Protein Urine Glucose (UA) Urine Ketones Urine Blood Urine Nitrite Ur Leukocyte Esterase Airway Mallampati Class: II TM Dist: >3cm Neck ROM: Full Heart: rrr Lungs: cta Assessment and Plan Assessment Anesthesia Assessment: Anesthesia Plan Discussed and Chart Reviewed Final Anesthetic Review Family History of Problems with Anesthesia: No History of Problems with Anesthesia: No NPO: Yes ASA Class: III Final Preanesthetic Review: No Changes in Pt Med Stat, Meds/Allgs Chart Reviewed and Consent Obtained/Reviewed Patient Risk: Intermediate Procedure Risk: Intermediate Anesthetic Plan Anesthetic Plan: GA Disposition: Standard PACU
--- NOTE | 2023-05-31 07:49 | MHC.SHP ---
Pre-Procedural Eval Section A Date of Service: 05/31/23 The patient is an INPATIENT: Yes Changes since office visit: No Cold of Flu in the past 2 weeks, No New Medical Problems, No Changes in Medication and No Patient answered all questions The History & Physical has been completed within 30 days and I have reviewed it.: Yes Section B Chief Complaint: Major Depressive Disorder Allergies: Allergies Allergy/AdvReac Type Severity Reaction Status Date / Time Penicillins [PENICILLINS] Allergy Unknown rash Verified 05/17/23 22:12 Plan I have reviewed the history and physical and performed a pertinent physical examination on my patient. No changes have occurred unless specified. Time Spent With Patient Time: Total time managing care of this patient today ____ minutes.
--- NOTE | 2023-05-31 07:49 | HO.ECTPROC ---
ECT Procedure Note Diagnosis/Treatment Date of Service: 05/31/23 Diagnosis: Major Depressive Disorder Previous ECT Date: 05/29/23 Current Treatment Number: 6 Treatment: Series Interval Clinical Notes: The patient reported slight improvement of dysphoria since his last ECT. On the last ECT report, it was suggested to change to bifrontal or bitemporal. We decided to change to bitermporal due to the limited response. After the seizure, the patient, as usual, had an increase of BP that resolved with Propofol 30 just after the seizure resolved with fair improvement of the BP increase. No need of a 2nd dose of Propofol Time: Total time managing care of this patient today _30___ minutes. ECT Settings Device: THYMATRON DGx Electrode Placement: Bitemporal Program/Pulse Width: 0.50 Energy Percent: 100 Seizure Duration By EEG (in seconds): 40 By Motor Observation (in seconds): 0 Medications Administration General Anesthetic: Etomidate (16) Muscle Relaxant: Succinylcholine (100) Ancillary Medications Analgesics: Torodol - Pre ECT Anti-emetics: Zofran - Pre ECT Miscillaneous Medications: Propofol (30 mg after ECT due to high BP) Airway Management Airway Management: Bag Mask Ventilation Treatment Recommendations No Changes Recommended: No change Pt Tolerated Procedure w/o Issue: Yes
[2023-05-31] MEDS: OLANZapine 2.5 MG TABLET PO (09:21)
[2023-05-31] MEDS: Thiamine HCL 100 MG TABLET PO (09:21)
[2023-05-31] MEDS: Cholecalciferol (Vitamin D3) 25 MCG TABLET PO (09:21)
[2023-05-31] MEDS: Multivitamin TABLET 1 TAB PO (09:21)
[2023-05-31] MEDS: buPROPion HCl XL 150 MG TAB.ER.24H PO (09:21)
[2023-05-31] MEDS: metFORMIN HCl 500 MG TABLET PO ×2 (09:21→17:05)
[2023-05-31] MEDS: Atorvastatin Calcium 20 MG TABLET PO (09:21)
[2023-05-31] MEDS: lisinopriL 10 MG TABLET PO (09:21)
[2023-05-31] MEDS: Escitalopram Oxalate 10 MG TABLET PO (09:21)
[2023-05-31] MEDS: Folic Acid 1 MG TABLET PO (09:21)
[2023-05-31 09:24] LABS: Glucose, Whole Blood 134 mg/dL (60-115)
--- NOTE | 2023-05-31 11:20 | HO.PSYCHPN ---
Subjective Subjective Date of Service: 05/31/23 Reason For Visit: Major Depressive Disorder Interim History: calm, cooperative. more flexible affect, brighter. no complaints or requests. per staff, isolative, avoidant. not attending groups. ate 75% of breakfast. no shower. taking meds. ECT today. Mental Status Exam Mental Status Exam Narrative: Pleasant. Engaged. Fairly presented. Organized. No SI/HI/AVH expressed. affect full range, makes a joke. mood improved. Insight and judgment fair Diagnostics Vital Signs (24Hr): Vital Signs - 24 hr 05/30/23 20:02 05/31/23 07:02 05/31/23 08:00 Temperature 98.9 F 97.3 F Pulse Rate 92 88 87 Respiratory Rate 18 14 Blood Pressure 140/73 H 153/88 H 151/79 H Pulse Oximetry 99 96 Oxygen Delivery Method Room Air Room Air Oxygen Flow Rate 05/31/23 08:10 05/31/23 08:15 05/31/23 08:20 Temperature 97.1 F Pulse Rate 80 89 89 Respiratory Rate 16 15 19 Blood Pressure 165/98 H 144/99 H 152/89 H Pulse Oximetry 98 98 96 Oxygen Delivery Method Nasal Cannula with ETCO2 Nasal Cannula with ETCO2 Room Air Oxygen Flow Rate 2 2 05/31/23 08:25 05/31/23 08:40 05/31/23 09:11 Temperature 97.1 F 97.3 F Pulse Rate 87 87 87 Respiratory Rate 16 16 18 Blood Pressure 162/82 H 166/82 H 151/79 H Pulse Oximetry 95 95 94 Oxygen Delivery Method Room Air Room Air Oxygen Flow Rate BMI result Body Mass Index 24.0 Labs 05/18/23 10:11 05/26/23 18:45 Labs: Laboratory Results - last 48 hr 05/30/23 05/31/23 05/31/23 07:45 07:00 09:16 POC Glucose 111 102 134 H Medications Medications Current Medications Acetaminophen (Acetaminophen 325 Mg Tablet) 650 mg PO Q6H PRN PRN Reason: Headache/Pain Mild Scale (1-3) Last Admin: 05/20/23 20:15 Dose: 325 mg Acetaminophen (Acetaminophen 325 Mg Tablet) 650 mg PO ONCE PRN PRN Reason: Pain, Mild (Pain Scale 1-3) Al Hydroxide/Mg Hydroxide (Magnesium Hydrox/Alum Hydrox 30 Ml Oral.Susp) 30 ml PO Q6H PRN PRN Reason: Heartburn/Nausea Atorvastatin Calcium (Atorvastatin Calcium 20 Mg Tablet) 20 mg PO DAILY [facility] Last Admin: 05/31/23 09:21 Dose: 20 mg Bupropion HCl (Bupropion Hcl Xl 150 Mg Tab.Er.24h) 150 mg PO DAILY [facility] Last Admin: 05/31/23 09:21 Dose: 150 mg Escitalopram Oxalate (Escitalopram Oxalate 10 Mg Tablet) 10 mg PO DAILY [facility] Last Admin: 05/31/23 09:21 Dose: 10 mg Folic Acid (Folic Acid 1 Mg Tablet) 1 mg PO DAILY [facility] Last Admin: 05/31/23 09:21 Dose: 1 mg Hydroxyzine HCl (Hydroxyzine Hcl 25 Mg Tablet) 25 mg PO Q6H PRN PRN Reason: Anxiety Lisinopril (Lisinopril 10 Mg Tablet) 10 mg PO DAILY [facility]; Protocol Last Admin: 05/31/23 09:21 Dose: 10 mg Magnesium Hydroxide (Milk Of Magnesia 30 Ml Oral.Susp) 30 ml PO DAILY PRN PRN Reason: Constipation Metformin HCl (Metformin Hcl 500 Mg Tablet) 500 mg PO BIDWM [facility] Last Admin: 05/31/23 09:21 Dose: 500 mg Multivitamins/Vitamin C (Multivitamin Tablet) 1 tab PO DAILY [facility] Last Admin: 05/31/23 09:21 Dose: 1 tab Olanzapine (Olanzapine 2.5 Mg Tablet) 2.5 mg PO DAILY [facility] Last Admin: 05/31/23 09:21 Dose: 2.5 mg Olanzapine (Olanzapine 7.5 Mg Tablet) 7.5 mg PO BEDTIME [facility] Last Admin: 05/30/23 21:08 Dose: 7.5 mg Ondansetron HCl (Ondansetron Hcl 4 Mg/2 Ml Vial) 4 mg IVPUSH ONCE PRN PRN Reason: Nausea and Vomiting Senna (Sennosides 8.6 Mg Tablet) 17.2 mg PO Q24H PRN PRN Reason: constipation Last Admin: 05/27/23 10:56 Dose: 17.2 mg Thiamine HCl (Thiamine Hcl 100 Mg Tablet) 100 mg PO DAILY [facility] Last Admin: 05/31/23 09:21 Dose: 100 mg Trazodone HCl (Trazodone Hcl 50 Mg Tablet) 50 mg PO BEDTIME PRN PRN Reason: insomnia Vitamin D (Cholecalciferol (Vitamin D3) 25 Mcg Tablet) 25 mcg PO DAILY [facility] Last Admin: 05/31/23 09:21 Dose: 25 mcg Allergies Allergies Allergy/AdvReac Type Severity Reaction Status Date / Time Penicillins [PENICILLINS] Allergy Unknown rash Verified 05/17/23 22:12 Assessment & Plan Assessment & Plan (1) Major depression with psychotic features: Status: Acute Code(s): F32.3 - Major depressive disorder, single episode, severe with psychotic features Plan 05/19: ECT to start Saturday05/20/23- confirmed with Dr. Garcia. NPO tonight and consents will be done pre ECT tomorrow 05/20: received ECT #1 without event. no change in presentation. continue current mgmt. UA NEG. thiamine and folate started as per medicine recommendation. 05/21: ECT #2 tomorrow. stable. continue current mgmt. 05/22: ECT #2 completed, #3 scheduled for saturday. slight improvement in mood from admission. continue current mgmt. 05/23: stable. ECT #3 tomorrow. continue current mgmt. 05/24: stable, ECT #3 completed without incident. continue current mgmt. ECT #4 scheduled for saturday. 05/25: Patient remains depressed encourage food fluids check labs continue ECT monitor vital signs 05/26: Patient remains severely depressed and withdrawn not taking in adequate nutrition required IV fluids. 05/27: ECT #4 completed, pt smiled today and noted his mood is improved. trazodone DCed over w/e in hopes it would help with orthostasis. slept adequately last night. continue current mgmt. 05/28: no change in presentation from yesterday. ECT #5 tomorrow. continue current mgmt. 05/29: continues poor PO intake. ECT #5 completed today. slightly more active. 05/30: continue current mgmt. ECT #6 tomorrow. 05/31: ECT #6 completed, most smiling and broadest affect seen to date this morning. continue current mgmt. Reason for continued inpatient stay Substantial Risk for: inability to function and rapid decompensation Time Spent With Patient Time: Total time managing care of this patient today __25__ minutes.
[2023-05-31] MEDS: OLANZapine 7.5 MG TABLET PO (20:27)
[2023-06-01 07:59] LABS: Creatinine Clr Calc Pharmacy 86.7; Estimated Glomerular Filt Rate > 60
[2023-06-01 07:59] LABS: Glucose, Whole Blood 102 mg/dL (60-115)
[2023-06-01 08:30] VITALS: BP 133/76; PULSE 74; RESP 20; TEMP 36.1; O2SAT 95
[2023-06-01] MEDS: metFORMIN HCl 500 MG TABLET PO ×2 (08:33→16:21)
[2023-06-01] MEDS: buPROPion HCl XL 150 MG TAB.ER.24H PO (08:33)
[2023-06-01] MEDS: Escitalopram Oxalate 10 MG TABLET PO (08:34)
[2023-06-01] MEDS: Cholecalciferol (Vitamin D3) 25 MCG TABLET PO (08:34)
[2023-06-01] MEDS: Multivitamin TABLET 1 TAB PO (08:34)
[2023-06-01] MEDS: Atorvastatin Calcium 20 MG TABLET PO (08:34)
[2023-06-01] MEDS: OLANZapine 2.5 MG TABLET PO (08:34)
[2023-06-01] MEDS: Thiamine HCL 100 MG TABLET PO (08:34)
[2023-06-01] MEDS: Folic Acid 1 MG TABLET PO (08:34)
[2023-06-01] MEDS: lisinopriL 10 MG TABLET PO (08:35)
--- NOTE | 2023-06-01 09:57 | P.PNPSI_ITS ---
Subjective Subjective Date of Service: 06/01/23 Reason For Visit: Major Depressive Disorder Interim History: Patient was seen and discussed in rounds today. Records and plans were reviewed. He states that he is feeling better with the ECT treatment. He is still somewhat confused but brighter in his affect. Eating better, up to 75% of meals. He is a little more engaged. Continues to be depressed. Medication compliant. No complaints or side effects. Not attending any groups Medication Compliance: Yes Side effects from medications: No Attending Groups: No Review of Systems Review of Systems Yes all other systems are reviewed and are negative Mental Status Exam Mental Status Exam Narrative: In today's visit he is alert, pleasant and interactive. Soft-spoken speech. Moderate eye contact. No signs of psychosis. No SI. Cognitively he has slow thought processes and reported to have some confusion. Judgment is intact. Diagnostics Vital Signs (24Hr): Vital Signs - 24 hr 05/31/23 19:49 Temperature 98.2 F Pulse Rate 95 Respiratory Rate 16 Blood Pressure 114/68 Pulse Oximetry 94 Oxygen Delivery Method Room Air BMI result Body Mass Index 24.0 Labs 05/18/23 10:11 06/01/23 07:40 Labs: Laboratory Results - last 48 hr 05/31/23 05/31/23 06/01/23 07:00 09:16 07:40 Creatinine 0.77 Estim Creat Clear Calc 86.7 Estimated GFR > 60 POC Glucose 102 134 H 06/01/23 07:50 Creatinine Estim Creat Clear Calc Estimated GFR POC Glucose 102 Medications Medications Current Medications Acetaminophen (Acetaminophen 325 Mg Tablet) 650 mg PO Q6H PRN PRN Reason: Headache/Pain Mild Scale (1-3) Last Admin: 05/20/23 20:15 Dose: 325 mg Acetaminophen (Acetaminophen 325 Mg Tablet) 650 mg PO ONCE PRN PRN Reason: Pain, Mild (Pain Scale 1-3) Al Hydroxide/Mg Hydroxide (Magnesium Hydrox/Alum Hydrox 30 Ml Oral.Susp) 30 ml PO Q6H PRN PRN Reason: Heartburn/Nausea Atorvastatin Calcium (Atorvastatin Calcium 20 Mg Tablet) 20 mg PO DAILY [facility] Last Admin: 06/01/23 08:34 Dose: 20 mg Bupropion HCl (Bupropion Hcl Xl 150 Mg Tab.Er.24h) 150 mg PO DAILY [facility] Last Admin: 06/01/23 08:33 Dose: 150 mg Escitalopram Oxalate (Escitalopram Oxalate 10 Mg Tablet) 10 mg PO DAILY [facility] Last Admin: 06/01/23 08:34 Dose: 10 mg Folic Acid (Folic Acid 1 Mg Tablet) 1 mg PO DAILY [facility] Last Admin: 06/01/23 08:34 Dose: 1 mg Hydroxyzine HCl (Hydroxyzine Hcl 25 Mg Tablet) 25 mg PO Q6H PRN PRN Reason: Anxiety Lisinopril (Lisinopril 10 Mg Tablet) 10 mg PO DAILY [facility]; Protocol Last Admin: 06/01/23 08:35 Dose: 10 mg Magnesium Hydroxide (Milk Of Magnesia 30 Ml Oral.Susp) 30 ml PO DAILY PRN PRN Reason: Constipation Metformin HCl (Metformin Hcl 500 Mg Tablet) 500 mg PO BIDWM [facility] Last Admin: 06/01/23 08:33 Dose: 500 mg Multivitamins/Vitamin C (Multivitamin Tablet) 1 tab PO DAILY [facility] Last Admin: 06/01/23 08:34 Dose: 1 tab Olanzapine (Olanzapine 2.5 Mg Tablet) 2.5 mg PO DAILY [facility] Last Admin: 06/01/23 08:34 Dose: 2.5 mg Olanzapine (Olanzapine 7.5 Mg Tablet) 7.5 mg PO BEDTIME [facility] Last Admin: 05/31/23 20:27 Dose: 7.5 mg Ondansetron HCl (Ondansetron Hcl 4 Mg/2 Ml Vial) 4 mg IVPUSH ONCE PRN PRN Reason: Nausea and Vomiting Senna (Sennosides 8.6 Mg Tablet) 17.2 mg PO Q24H PRN PRN Reason: constipation Last Admin: 05/27/23 10:56 Dose: 17.2 mg Thiamine HCl (Thiamine Hcl 100 Mg Tablet) 100 mg PO DAILY [facility] Last Admin: 06/01/23 08:34 Dose: 100 mg Trazodone HCl (Trazodone Hcl 50 Mg Tablet) 50 mg PO BEDTIME PRN PRN Reason: insomnia Vitamin D (Cholecalciferol (Vitamin D3) 25 Mcg Tablet) 25 mcg PO DAILY [facility] Last Admin: 06/01/23 08:34 Dose: 25 mcg Allergies Allergies Allergy/AdvReac Type Severity Reaction Status Date / Time Penicillins [PENICILLINS] Allergy Unknown rash Verified 05/17/23 22:12 Assessment & Plan Assessment & Plan (1) Major depression with psychotic features: Status: Acute Code(s): F32.3 - Major depressive disorder, single episode, severe with psychotic features Plan 05/19: ECT to start Saturday05/20/23- confirmed with Dr. Garcia. NPO tonight and consents will be done pre ECT tomorrow 05/20: received ECT #1 without event. no change in presentation. continue current mgmt. UA NEG. thiamine and folate started as per medicine recommendation. 05/21: ECT #2 tomorrow. stable. continue current mgmt. 05/22: ECT #2 completed, #3 scheduled for saturday. slight improvement in mood from admission. continue current mgmt. 05/23: stable. ECT #3 tomorrow. continue current mgmt. 05/24: stable, ECT #3 completed without incident. continue current mgmt. ECT #4 scheduled for saturday. 05/25: Patient remains depressed encourage food fluids check labs continue ECT monitor vital signs 05/26: Patient remains severely depressed and withdrawn not taking in adequate nutrition required IV fluids. 05/27: ECT #4 completed, pt smiled today and noted his mood is improved. trazodone DCed over w/e in hopes it would help with orthostasis. slept adequately last night. continue current mgmt. 05/28: no change in presentation from yesterday. ECT #5 tomorrow. continue current mgmt. 05/29: continues poor PO intake. ECT #5 completed today. slightly more active. 05/30: continue current mgmt. ECT #6 tomorrow. 05/31: ECT #6 completed, most smiling and broadest affect seen to date this morning. continue current mgmt. 06/01: Continue current regimen and plans. Continue ECT Reason for continued inpatient stay Substantial Risk for: med/psych decompensation Time Spent With Patient Time: Total time managing care of this patient today ____ minutes.
[2023-06-01 19:24] VITALS: BP 120/68; PULSE 91; RESP 16; TEMP 36.5; O2SAT 97
[2023-06-01] MEDS: OLANZapine 7.5 MG TABLET PO (20:34)
[2023-06-02 08:05] VITALS: BP 133/77; PULSE 72; RESP 20; TEMP 36.2; O2SAT 97
[2023-06-02 08:10] LABS: Glucose, Whole Blood 100 mg/dL (60-115)
[2023-06-02] MEDS: metFORMIN HCl 500 MG TABLET PO ×2 (08:10→16:31)
[2023-06-02] MEDS: Atorvastatin Calcium 20 MG TABLET PO (08:10)
[2023-06-02] MEDS: buPROPion HCl XL 150 MG TAB.ER.24H PO (08:10)
[2023-06-02] MEDS: Folic Acid 1 MG TABLET PO (08:10)
[2023-06-02] MEDS: Multivitamin TABLET 1 TAB PO (08:11)
[2023-06-02] MEDS: Thiamine HCL 100 MG TABLET PO (08:12)
[2023-06-02] MEDS: OLANZapine 2.5 MG TABLET PO (08:12)
[2023-06-02] MEDS: Escitalopram Oxalate 10 MG TABLET PO (08:12)
[2023-06-02] MEDS: Cholecalciferol (Vitamin D3) 25 MCG TABLET PO (08:12)
[2023-06-02] MEDS: lisinopriL 10 MG TABLET PO (08:12)
--- NOTE | 2023-06-02 09:01 | P.PNPSI_ITS ---
Subjective Subjective Date of Service: 06/02/23 Reason For Visit: Major Depressive Disorder Subjective Notes: Conditional Voluntary Interim History: Patient was seen and discussed in rounds today. Records and plans were reviewed. He is doing quite well and has been improved with ECT which is being continued this week. He is visible, compliant with treatment. Still states that he has for out of 10 depression and some anxiety. Affect is brighter. No complaints or side effects. No changes were made Medication Compliance: Yes Side effects from medications: No Attending Groups: No Review of Systems Review of Systems Yes all other systems are reviewed and are negative Diagnostics Vital Signs (24Hr): Vital Signs - 24 hr 06/01/23 19:24 06/02/23 08:05 06/02/23 08:05 Temperature 97.7 F 97.1 F Pulse Rate 91 72 72 Respiratory Rate 16 20 Blood Pressure 120/68 133/77 133/77 Pulse Oximetry 97 97 Oxygen Delivery Method Room Air Room Air BMI result Body Mass Index 24.0 Labs 05/18/23 10:11 06/01/23 07:40 Labs: Laboratory Results - last 48 hr 05/31/23 06/01/23 06/01/23 09:16 07:40 07:50 Creatinine 0.77 Estim Creat Clear Calc 86.7 Estimated GFR > 60 POC Glucose 134 H 102 06/02/23 07:56 Creatinine Estim Creat Clear Calc Estimated GFR POC Glucose 100 Medications Medications Current Medications Acetaminophen (Acetaminophen 325 Mg Tablet) 650 mg PO Q6H PRN PRN Reason: Headache/Pain Mild Scale (1-3) Last Admin: 05/20/23 20:15 Dose: 325 mg Acetaminophen (Acetaminophen 325 Mg Tablet) 650 mg PO ONCE PRN PRN Reason: Pain, Mild (Pain Scale 1-3) Al Hydroxide/Mg Hydroxide (Magnesium Hydrox/Alum Hydrox 30 Ml Oral.Susp) 30 ml PO Q6H PRN PRN Reason: Heartburn/Nausea Atorvastatin Calcium (Atorvastatin Calcium 20 Mg Tablet) 20 mg PO DAILY [facility] Last Admin: 06/02/23 08:10 Dose: 20 mg Bupropion HCl (Bupropion Hcl Xl 150 Mg Tab.Er.24h) 150 mg PO DAILY [facility] Last Admin: 06/02/23 08:10 Dose: 150 mg Escitalopram Oxalate (Escitalopram Oxalate 10 Mg Tablet) 10 mg PO DAILY [facility] Last Admin: 06/02/23 08:12 Dose: 10 mg Folic Acid (Folic Acid 1 Mg Tablet) 1 mg PO DAILY [facility] Last Admin: 06/02/23 08:10 Dose: 1 mg Hydroxyzine HCl (Hydroxyzine Hcl 25 Mg Tablet) 25 mg PO Q6H PRN PRN Reason: Anxiety Lisinopril (Lisinopril 10 Mg Tablet) 10 mg PO DAILY [facility]; Protocol Last Admin: 06/02/23 08:12 Dose: 10 mg Magnesium Hydroxide (Milk Of Magnesia 30 Ml Oral.Susp) 30 ml PO DAILY PRN PRN Reason: Constipation Metformin HCl (Metformin Hcl 500 Mg Tablet) 500 mg PO BIDWM [facility] Last Admin: 06/02/23 08:10 Dose: 500 mg Multivitamins/Vitamin C (Multivitamin Tablet) 1 tab PO DAILY [facility] Last Admin: 06/02/23 08:11 Dose: 1 tab Olanzapine (Olanzapine 2.5 Mg Tablet) 2.5 mg PO DAILY [facility] Last Admin: 06/02/23 08:12 Dose: 2.5 mg Olanzapine (Olanzapine 7.5 Mg Tablet) 7.5 mg PO BEDTIME [facility] Last Admin: 06/01/23 20:34 Dose: 7.5 mg Ondansetron HCl (Ondansetron Hcl 4 Mg/2 Ml Vial) 4 mg IVPUSH ONCE PRN PRN Reason: Nausea and Vomiting Senna (Sennosides 8.6 Mg Tablet) 17.2 mg PO Q24H PRN PRN Reason: constipation Last Admin: 05/27/23 10:56 Dose: 17.2 mg Thiamine HCl (Thiamine Hcl 100 Mg Tablet) 100 mg PO DAILY [facility] Last Admin: 06/02/23 08:12 Dose: 100 mg Trazodone HCl (Trazodone Hcl 50 Mg Tablet) 50 mg PO BEDTIME PRN PRN Reason: insomnia Vitamin D (Cholecalciferol (Vitamin D3) 25 Mcg Tablet) 25 mcg PO DAILY [facility] Last Admin: 06/02/23 08:12 Dose: 25 mcg Allergies Allergies Allergy/AdvReac Type Severity Reaction Status Date / Time Penicillins [PENICILLINS] Allergy Unknown rash Verified 05/17/23 22:12 Assessment & Plan Assessment & Plan (1) Major depression with psychotic features: Status: Acute Code(s): F32.3 - Major depressive disorder, single episode, severe with psychotic features Plan 05/19: ECT to start Saturday05/20/23- confirmed with Dr. Garcia. NPO tonight and consents will be done pre ECT tomorrow 05/20: received ECT #1 without event. no change in presentation. continue current mgmt. UA NEG. thiamine and folate started as per medicine recommendation. 05/21: ECT #2 tomorrow. stable. continue current mgmt. 05/22: ECT #2 completed, #3 scheduled for saturday. slight improvement in mood from admission. continue current mgmt. 05/23: stable. ECT #3 tomorrow. continue current mgmt. 05/24: stable, ECT #3 completed without incident. continue current mgmt. ECT #4 scheduled for saturday. 05/25: Patient remains depressed encourage food fluids check labs continue ECT monitor vital signs 05/26: Patient remains severely depressed and withdrawn not taking in adequate nutrition required IV fluids. 05/27: ECT #4 completed, pt smiled today and noted his mood is improved. trazodone DCed over w/e in hopes it would help with orthostasis. slept adequately last night. continue current mgmt. 05/28: no change in presentation from yesterday. ECT #5 tomorrow. continue current mgmt. 05/29: continues poor PO intake. ECT #5 completed today. slightly more active. 05/30: continue current mgmt. ECT #6 tomorrow. 05/31: ECT #6 completed, most smiling and broadest affect seen to date this morning. continue current mgmt. 06/01: Continue current regimen and plans. Continue ECT 06/02: Continue current plans and regimen Reason for continued inpatient stay Substantial Risk for: med/psych decompensation Time Spent With Patient Time: Total time managing care of this patient today ____ minutes.
[2023-06-02 19:25] VITALS: BP 128/69; PULSE 91; RESP 14; TEMP 36.2; O2SAT 97
[2023-06-02] MEDS: OLANZapine 7.5 MG TABLET PO (20:27)
[2023-06-03] VITALS (9 sets, daily range): BP systolic 130–183; BP diastolic 59–104; PULSE 78–103; RESP 14–20; TEMP 36.2–36.8; O2SAT 95–98
--- NOTE | 2023-06-03 06:40 | HO.ANESPROP2 ---
[facility] Active Problems Active Problems: All Active Problems (Updated 05/18/23 @ 16:31 by Samuel Booth MD) Major depression with psychotic features (Acute) Routine medical exam (Acute) Past Medical History Medical History HLD (hyperlipidemia) HTN (hypertension) Non-insulin dependent type 2 diabetes mellitus Family History Family history of problems with anesthesia: No Surgical History History of Problems with Anesthesia: No Social History Social History Household Members: Significant Other Housing: Apartment Do you presently have visiting nurse or other home services: No Patient Tobacco Use Status: Former Tobacco user Quit Date: 50 years ago Tobacco use type: Cigarette Smoked in Last 30 Days: No e-Cigarette/Vaping Use: Never Used Patient Interested in Nicotine Replacement: No Patient Given Instructions on How to Stop Smoking: No (n/a) Second Hand Smoke Exposure: No Use of substances other than those prescribed or required for medical reasons: Yes Substance Use Type: Marijuana Substance Use Frequency: Chronic Longstanding Last Used Substance Other:: month ago Currently Displaying Signs/Symptoms of Drug Intoxication Withdrawal: No Any prior treatment program specific to substance use: No Have you been hit, kicked, punched, or otherwise hurt by someone within the past year? If so, by whom?: No Do you feel safe in your current relationship?: Yes Is there a partner from a previous relationship who is making you feel unsafe now?: No Are you made to feel afraid or neglected: No Advance Directives: No Advance Directives Information Provided: No Do you have thoughts of harming others: None Do you have a plan to hurt others: No Plan Recently lost weight without trying: Yes How much weight loss: 14-23 pounds Eating poorly because of decreased appetite: No Nutrition screen score: 4 Nutrition Risks: Dental problems Poor oral hygiene: Yes service: No Sexual orientation: Straight/Heterosexual Meds Allergies Allergy/AdvReac Type Severity Reaction Status Date / Time Penicillins [PENICILLINS] Allergy Unknown rash Verified 05/17/23 22:12 Active Medications: Current Medications Acetaminophen (Acetaminophen 325 Mg Tablet) 650 mg PO Q6H PRN PRN Reason: Headache/Pain Mild Scale (1-3) Last Admin: 05/20/23 20:15 Dose: 325 mg Acetaminophen (Acetaminophen 325 Mg Tablet) 650 mg PO ONCE PRN PRN Reason: Pain, Mild (Pain Scale 1-3) Al Hydroxide/Mg Hydroxide (Magnesium Hydrox/Alum Hydrox 30 Ml Oral.Susp) 30 ml PO Q6H PRN PRN Reason: Heartburn/Nausea Atorvastatin Calcium (Atorvastatin Calcium 20 Mg Tablet) 20 mg PO DAILY [facility] Last Admin: 06/02/23 08:10 Dose: 20 mg Bupropion HCl (Bupropion Hcl Xl 150 Mg Tab.Er.24h) 150 mg PO DAILY [facility] Last Admin: 06/02/23 08:10 Dose: 150 mg Escitalopram Oxalate (Escitalopram Oxalate 10 Mg Tablet) 10 mg PO DAILY [facility] Last Admin: 06/02/23 08:12 Dose: 10 mg Folic Acid (Folic Acid 1 Mg Tablet) 1 mg PO DAILY [facility] Last Admin: 06/02/23 08:10 Dose: 1 mg Hydroxyzine HCl (Hydroxyzine Hcl 25 Mg Tablet) 25 mg PO Q6H PRN PRN Reason: Anxiety Lisinopril (Lisinopril 10 Mg Tablet) 10 mg PO DAILY [facility]; Protocol Last Admin: 06/02/23 08:12 Dose: 10 mg Magnesium Hydroxide (Milk Of Magnesia 30 Ml Oral.Susp) 30 ml PO DAILY PRN PRN Reason: Constipation Metformin HCl (Metformin Hcl 500 Mg Tablet) 500 mg PO BIDWM [facility] Last Admin: 06/02/23 16:31 Dose: 500 mg Multivitamins/Vitamin C (Multivitamin Tablet) 1 tab PO DAILY [facility] Last Admin: 06/02/23 08:11 Dose: 1 tab Olanzapine (Olanzapine 2.5 Mg Tablet) 2.5 mg PO DAILY [facility] Last Admin: 06/02/23 08:12 Dose: 2.5 mg Olanzapine (Olanzapine 7.5 Mg Tablet) 7.5 mg PO BEDTIME [facility] Last Admin: 06/02/23 20:27 Dose: 7.5 mg Ondansetron HCl (Ondansetron Hcl 4 Mg/2 Ml Vial) 4 mg IVPUSH ONCE PRN PRN Reason: Nausea and Vomiting Senna (Sennosides 8.6 Mg Tablet) 17.2 mg PO Q24H PRN PRN Reason: constipation Last Admin: 05/27/23 10:56 Dose: 17.2 mg Thiamine HCl (Thiamine Hcl 100 Mg Tablet) 100 mg PO DAILY [facility] Last Admin: 06/02/23 08:12 Dose: 100 mg Trazodone HCl (Trazodone Hcl 50 Mg Tablet) 50 mg PO BEDTIME PRN PRN Reason: insomnia Vitamin D (Cholecalciferol (Vitamin D3) 25 Mcg Tablet) 25 mcg PO DAILY [facility] Last Admin: 06/02/23 08:12 Dose: 25 mcg Home Medications Medication Instructions Recorded Confirmed Last Taken Type atorvastatin 20 mg tablet 20 mg PO DAILY 05/17/23 05/17/23 05/17/23 09:16 History bupropion HCl 150 mg 24 hr tablet, 150 mg PO QAM 05/17/23 05/17/23 05/17/23 09:16 History extended release cholecalciferol (vitamin D3) 25 25 mcg PO DAILY 05/17/23 05/17/23 05/17/23 09:16 History mcg (1,000 unit) tablet citalopram 20 mg tablet 20 mg PO DAILY 05/17/23 05/17/23 05/17/23 09:16 History lisinopril 10 mg tablet 10 mg PO DAILY 05/17/23 05/17/23 05/17/23 09:16 History metformin 500 mg tablet 500 mg PO BIDWMEAL 05/17/23 05/17/23 05/17/23 09:16 History multivitamin 1 tab PO DAILY 05/17/23 05/17/23 05/17/23 09:16 History olanzapine 2.5 mg tablet 2.5 mg PO DAILY 05/17/23 05/17/23 05/17/23 09:21 History olanzapine 7.5 mg tablet 7.5 mg PO BEDTIME 05/17/23 05/17/23 05/16/23 19:46 History trazodone 100 mg tablet 100 mg PO BEDTIME 05/17/23 05/17/23 05/16/23 19:46 History Exam Exam Date and Time: June 03, 2023 0640 Height,Weight and Vital Signs: Height 5 ft 9 in Weight 73.754 kg Last Vital Signs Temp 97.1 F 06/03/23 06:28 Pulse 91 06/03/23 06:28 Resp 17 06/03/23 06:28 BP 155/89 H 06/03/23 06:28 Pulse Ox 98 06/03/23 06:28 O2 Del Method Room Air 06/03/23 06:28 O2 Flow Rate 2 05/31/23 08:15 Pertinent Lab Results Pertinent Lab Results: Laboratory Tests 05/18/23 05/18/23 05/18/23 08:18 10:11 14:50 WBC 11.8 H RBC 5.55 Hgb 17.2 Hct 48.2 MCV 86.8 MCH 31.0 MCHC 35.7 RDW 12.5 Plt Count 414 H MPV 8.5 L Immature Gran % (Auto) 0.3 Neut % (Auto) 80.0 H Lymph % (Auto) 9.4 L [place] % (Auto) 9.1 Eos % (Auto) 0.8 Baso % (Auto) 0.4 Lymph # (Auto) 1.1 L [place] # (Auto) 1.1 Eos # (Auto) 0.1 Baso # (Auto) 0.1 Abs Immat Gran (auto) 0.03 Absolute Neuts (auto) 9.5 H Absolute Nucleated RBC 0.000 Nucleated RBC % (auto) 0.0 Sodium 136 Potassium 4.3 Chloride 97 Carbon Dioxide 25 Anion Gap 18 BUN 18 H Creatinine 0.84 Estim Creat Clear Calc 79.4 Estimated GFR > 60 POC Glucose 99 Random Glucose Fasting Glucose 92 Calcium 10.1 Total Bilirubin 0.8 AST 25 ALT 30 Alkaline Phosphatase 112 Total Protein 7.3 Albumin 4.2 Triglycerides 75 Cholesterol 122 LDL Cholesterol, Calc 57 HDL Cholesterol 50 Vitamin B12 1394 H Folate 16.3 TSH 0.62 Urine Color Dark Yellow Urine Appearance Cloudy Urine pH 5.0 Ur Specific [place] >= 1.030 H Urine Protein Trace Urine Glucose (UA) Negative Urine Ketones 15 Urine Blood Negative Urine Nitrite Negative Ur Leukocyte Esterase Negative 05/19/23 05/20/23 05/21/23 07:57 07:27 08:03 WBC RBC Hgb Hct MCV MCH MCHC RDW Plt Count MPV Immature Gran % (Auto) Neut % (Auto) Lymph % (Auto) [place] % (Auto) Eos % (Auto) Baso % (Auto) Lymph # (Auto) [place] # (Auto) Eos # (Auto) Baso # (Auto) Abs Immat Gran (auto) Absolute Neuts (auto) Absolute Nucleated RBC Nucleated RBC % (auto) Sodium Potassium Chloride Carbon Dioxide Anion Gap BUN Creatinine Estim Creat Clear Calc Estimated GFR POC Glucose 104 110 96 Random Glucose Fasting Glucose Calcium Total Bilirubin AST ALT Alkaline Phosphatase Total Protein Albumin Triglycerides Cholesterol LDL Cholesterol, Calc HDL Cholesterol Vitamin B12 Folate TSH Urine Color Urine Appearance Urine pH Ur Specific [place] Urine Protein Urine Glucose (UA) Urine Ketones Urine Blood Urine Nitrite Ur Leukocyte Esterase 05/22/23 05/23/23 05/24/23 06:35 10:48 08:01 WBC RBC Hgb Hct MCV MCH MCHC RDW Plt Count MPV Immature Gran % (Auto) Neut % (Auto) Lymph % (Auto) [place] % (Auto) Eos % (Auto) Baso % (Auto) Lymph # (Auto) [place] # (Auto) Eos # (Auto) Baso # (Auto) Abs Immat Gran (auto) Absolute Neuts (auto) Absolute Nucleated RBC Nucleated RBC % (auto) Sodium Potassium Chloride Carbon Dioxide Anion Gap BUN Creatinine Estim Creat Clear Calc Estimated GFR POC Glucose 108 105 86 Random Glucose Fasting Glucose Calcium Total Bilirubin AST ALT Alkaline Phosphatase Total Protein Albumin Triglycerides Cholesterol LDL Cholesterol, Calc HDL Cholesterol Vitamin B12 Folate TSH Urine Color Urine Appearance Urine pH Ur Specific [place] Urine Protein Urine Glucose (UA) Urine Ketones Urine Blood Urine Nitrite Ur Leukocyte Esterase 05/25/23 05/25/23 05/26/23 07:51 07:59 08:08 WBC RBC Hgb Hct MCV MCH MCHC RDW Plt Count MPV Immature Gran % (Auto) Neut % (Auto) Lymph % (Auto) [place] % (Auto) Eos % (Auto) Baso % (Auto) Lymph # (Auto) [place] # (Auto) Eos # (Auto) Baso # (Auto) Abs Immat Gran (auto) Absolute Neuts (auto) Absolute Nucleated RBC Nucleated RBC % (auto) Sodium Potassium Chloride Carbon Dioxide Anion Gap BUN Creatinine 0.76 Estim Creat Clear Calc 87.8 Estimated GFR > 60 POC Glucose 95 92 Random Glucose Fasting Glucose Calcium Total Bilirubin AST ALT Alkaline Phosphatase Total Protein Albumin Triglycerides Cholesterol LDL Cholesterol, Calc HDL Cholesterol Vitamin B12 Folate TSH Urine Color Urine Appearance Urine pH Ur Specific [place] Urine Protein Urine Glucose (UA) Urine Ketones Urine Blood Urine Nitrite Ur Leukocyte Esterase 05/26/23 05/26/23 05/27/23 12:10 18:45 05:49 WBC RBC Hgb Hct MCV MCH MCHC RDW Plt Count MPV Immature Gran % (Auto) Neut % (Auto) Lymph % (Auto) [place] % (Auto) Eos % (Auto) Baso % (Auto) Lymph # (Auto) [place] # (Auto) Eos # (Auto) Baso # (Auto) Abs Immat Gran (auto) Absolute Neuts (auto) Absolute Nucleated RBC Nucleated RBC % (auto) Sodium 140 140 Potassium 4.2 4.1 Chloride 103 104 Carbon Dioxide 27 25 Anion Gap 14 15 BUN 13 12 Creatinine 0.83 0.74 Estim Creat Clear Calc 80.4 90.2 Estimated GFR > 60 > 60 POC Glucose 88 Random Glucose 100 126 H Fasting Glucose Calcium 9.7 9.4 Total Bilirubin AST ALT Alkaline Phosphatase Total Protein Albumin Triglycerides Cholesterol LDL Cholesterol, Calc HDL Cholesterol Vitamin B12 Folate TSH Urine Color Urine Appearance Urine pH Ur Specific [place] Urine Protein Urine Glucose (UA) Urine Ketones Urine Blood Urine Nitrite Ur Leukocyte Esterase 05/28/23 05/29/23 05/30/23 07:56 06:38 07:45 WBC RBC Hgb Hct MCV MCH MCHC RDW Plt Count MPV Immature Gran % (Auto) Neut % (Auto) Lymph % (Auto) [place] % (Auto) Eos % (Auto) Baso % (Auto) Lymph # (Auto) [place] # (Auto) Eos # (Auto) Baso # (Auto) Abs Immat Gran (auto) Absolute Neuts (auto) Absolute Nucleated RBC Nucleated RBC % (auto) Sodium Potassium Chloride Carbon Dioxide Anion Gap BUN Creatinine Estim Creat Clear Calc Estimated GFR POC Glucose 99 113 111 Random Glucose Fasting Glucose Calcium Total Bilirubin AST ALT Alkaline Phosphatase Total Protein Albumin Triglycerides Cholesterol LDL Cholesterol, Calc HDL Cholesterol Vitamin B12 Folate TSH Urine Color Urine Appearance Urine pH Ur Specific [place] Urine Protein Urine Glucose (UA) Urine Ketones Urine Blood Urine Nitrite Ur Leukocyte Esterase 05/31/23 05/31/23 06/01/23 07:00 09:16 07:40 WBC RBC Hgb Hct MCV MCH MCHC RDW Plt Count MPV Immature Gran % (Auto) Neut % (Auto) Lymph % (Auto) [place] % (Auto) Eos % (Auto) Baso % (Auto) Lymph # (Auto) [place] # (Auto) Eos # (Auto) Baso # (Auto) Abs Immat Gran (auto) Absolute Neuts (auto) Absolute Nucleated RBC Nucleated RBC % (auto) Sodium Potassium Chloride Carbon Dioxide Anion Gap BUN Creatinine 0.77 Estim Creat Clear Calc 86.7 Estimated GFR > 60 POC Glucose 102 134 H Random Glucose Fasting Glucose Calcium Total Bilirubin AST ALT Alkaline Phosphatase Total Protein Albumin Triglycerides Cholesterol LDL Cholesterol, Calc HDL Cholesterol Vitamin B12 Folate TSH Urine Color Urine Appearance Urine pH Ur Specific [place] Urine Protein Urine Glucose (UA) Urine Ketones Urine Blood Urine Nitrite Ur Leukocyte Esterase 06/01/23 06/02/23 07:50 07:56 WBC RBC Hgb Hct MCV MCH MCHC RDW Plt Count MPV Immature Gran % (Auto) Neut % (Auto) Lymph % (Auto) [place] % (Auto) Eos % (Auto) Baso % (Auto) Lymph # (Auto) [place] # (Auto) Eos # (Auto) Baso # (Auto) Abs Immat Gran (auto) Absolute Neuts (auto) Absolute Nucleated RBC Nucleated RBC % (auto) Sodium Potassium Chloride Carbon Dioxide Anion Gap BUN Creatinine Estim Creat Clear Calc Estimated GFR POC Glucose 102 100 Random Glucose Fasting Glucose Calcium Total Bilirubin AST ALT Alkaline Phosphatase Total Protein Albumin Triglycerides Cholesterol LDL Cholesterol, Calc HDL Cholesterol Vitamin B12 Folate TSH Urine Color Urine Appearance Urine pH Ur Specific [place] Urine Protein Urine Glucose (UA) Urine Ketones Urine Blood Urine Nitrite Ur Leukocyte Esterase Airway Mallampati Class: II TM Dist: >3cm Neck ROM: Full Partial: Upper Heart: rrr Lungs: cta Assessment and Plan Assessment Anesthesia Assessment: Anesthesia Plan Discussed and Chart Reviewed Final Anesthetic Review Family History of Problems with Anesthesia: No History of Problems with Anesthesia: No NPO: Yes ASA Class: III Final Preanesthetic Review: No Changes in Pt Med Stat, Meds/Allgs Chart Reviewed and Consent Obtained/Reviewed Patient Risk: Intermediate Procedure Risk: Intermediate Anesthetic Plan Anesthetic Plan: GA Disposition: Standard PACU
[2023-06-03 06:42] LABS: Glucose, Whole Blood 127 mg/dL (60-115)
--- NOTE | 2023-06-03 07:03 | MHC.SHP ---
Pre-Procedural Eval Section A Date of Service: 06/03/23 The patient is an INPATIENT: No Changes since office visit: No Cold of Flu in the past 2 weeks, No New Medical Problems, No Changes in Medication and No Patient answered all questions The History & Physical has been completed within 30 days and I have reviewed it.: Yes Section B Chief Complaint: Major Depressive Disorder Allergies: Allergies Allergy/AdvReac Type Severity Reaction Status Date / Time Penicillins [PENICILLINS] Allergy Unknown rash Verified 05/17/23 22:12 Plan I have reviewed the history and physical and performed a pertinent physical examination on my patient. No changes have occurred unless specified. Time Spent With Patient Time: Total time managing care of this patient today ____ minutes.
--- NOTE | 2023-06-03 07:23 | HO.ECTPROC ---
ECT Procedure Note Diagnosis/Treatment Date of Service: 06/03/23 Diagnosis: Major Depressive Disorder Previous ECT Date: 05/31/23 Current Treatment Number: 7 Treatment: Series Interval Clinical Notes: The patient reported improvement of dysphoria, still depressed but better than last procedure. Over the weekend, his girlfriend came to visit him. No side effects with previous ECT, he had increased BP after the procedure that resolved with Propofol 30mg. Current procedure done as the last one with no complications and a decent seizure of 37s. Time: Total time managing care of this patient today __30__ minutes. ECT Settings Device: THYMATRON DGx Electrode Placement: Bitemporal Program/Pulse Width: 0.50 Energy Percent: 100 Seizure Duration By EEG (in seconds): 37 By Motor Observation (in seconds): 30 Medications Administration General Anesthetic: Etomidate (14) Muscle Relaxant: Succinylcholine (100) Ancillary Medications Analgesics: Torodol - Pre ECT Anti-emetics: Zofran - Pre ECT Miscillaneous Medications: Propofol (30 after the seizure for BP control) Airway Management Airway Management: Bag Mask Ventilation Treatment Recommendations No Changes Recommended: No change Pt Tolerated Procedure w/o Issue: Yes
[2023-06-03] MEDS: Multivitamin TABLET 1 TAB PO (08:20)
[2023-06-03] MEDS: OLANZapine 2.5 MG TABLET PO (08:20)
[2023-06-03] MEDS: Cholecalciferol (Vitamin D3) 25 MCG TABLET PO (08:20)
[2023-06-03] MEDS: lisinopriL 10 MG TABLET PO (08:20)
[2023-06-03] MEDS: Folic Acid 1 MG TABLET PO (08:20)
[2023-06-03] MEDS: buPROPion HCl XL 150 MG TAB.ER.24H PO (08:20)
[2023-06-03] MEDS: Atorvastatin Calcium 20 MG TABLET PO (08:20)
[2023-06-03] MEDS: Escitalopram Oxalate 10 MG TABLET PO (08:20)
[2023-06-03] MEDS: Thiamine HCL 100 MG TABLET PO (08:20)
[2023-06-03] MEDS: metFORMIN HCl 500 MG TABLET PO ×2 (08:20→16:08)
--- NOTE | 2023-06-03 13:12 | HO.PSYCHPN ---
Subjective Subjective Date of Service: 06/03/23 Reason For Visit: Major Depressive Disorder Interim History: up and about, smiling, more animated and spontaneous. feeling somewhat tired in the morning, agreeable to DC morning dose of zyprexa. no psychotic Sx now, discuss possibility of tapering off of it entirely in the coming weeks. sleeping wel. per staff ECT this morning. eating with encouragement. ADLs with cueing. depression improving. orthostatic issues appear to have laregely resolved. no SI/AVH. slept well. Mental Status Exam Mental Status Exam Narrative: Pleasant. Engaged. Fairly presented. Organized. No SI/HI/AVH expressed. affect full range. mood improved. Insight and judgment fair Diagnostics Vital Signs (24Hr): Vital Signs - 24 hr 06/02/23 19:25 06/03/23 05:56 06/03/23 06:28 Temperature 97.2 F 97.6 F 97.1 F Pulse Rate 91 80 91 Respiratory Rate 14 16 17 Blood Pressure 128/69 153/77 H 155/89 H Pulse Oximetry 97 96 98 Oxygen Delivery Method Room Air Room Air Oxygen Flow Rate 06/03/23 07:26 06/03/23 07:31 06/03/23 07:36 Temperature 98.3 F Pulse Rate 78 81 85 Respiratory Rate 16 18 20 Blood Pressure 167/84 H 144/79 H 142/104 H Pulse Oximetry 95 95 Oxygen Delivery Method Nasal Cannula Nasal Cannula Nasal Cannula Oxygen Flow Rate 2 2 2 06/03/23 07:41 06/03/23 07:56 06/03/23 08:59 Temperature 98.3 F Pulse Rate 87 86 88 Respiratory Rate 16 16 Blood Pressure 155/92 H 166/67 H 183/83 H Pulse Oximetry 95 95 Oxygen Delivery Method Room Air Room Air Oxygen Flow Rate BMI result Body Mass Index 24.0 Labs 05/18/23 10:11 06/01/23 07:40 Labs: Laboratory Results - last 48 hr 06/02/23 06/03/23 07:56 06:26 POC Glucose 100 127 H Medications Medications Current Medications Acetaminophen (Acetaminophen 325 Mg Tablet) 650 mg PO Q6H PRN PRN Reason: Headache/Pain Mild Scale (1-3) Last Admin: 05/20/23 20:15 Dose: 325 mg Acetaminophen (Acetaminophen 325 Mg Tablet) 650 mg PO ONCE PRN PRN Reason: Pain, Mild (Pain Scale 1-3) Al Hydroxide/Mg Hydroxide (Magnesium Hydrox/Alum Hydrox 30 Ml Oral.Susp) 30 ml PO Q6H PRN PRN Reason: Heartburn/Nausea Atorvastatin Calcium (Atorvastatin Calcium 20 Mg Tablet) 20 mg PO DAILY [facility] Last Admin: 06/03/23 08:20 Dose: 20 mg Bupropion HCl (Bupropion Hcl Xl 150 Mg Tab.Er.24h) 150 mg PO DAILY [facility] Last Admin: 06/03/23 08:20 Dose: 150 mg Escitalopram Oxalate (Escitalopram Oxalate 10 Mg Tablet) 10 mg PO DAILY [facility] Last Admin: 06/03/23 08:20 Dose: 10 mg Folic Acid (Folic Acid 1 Mg Tablet) 1 mg PO DAILY [facility] Last Admin: 06/03/23 08:20 Dose: 1 mg Hydroxyzine HCl (Hydroxyzine Hcl 25 Mg Tablet) 25 mg PO Q6H PRN PRN Reason: Anxiety Lisinopril (Lisinopril 10 Mg Tablet) 10 mg PO DAILY [facility]; Protocol Last Admin: 06/03/23 08:20 Dose: 10 mg Magnesium Hydroxide (Milk Of Magnesia 30 Ml Oral.Susp) 30 ml PO DAILY PRN PRN Reason: Constipation Metformin HCl (Metformin Hcl 500 Mg Tablet) 500 mg PO BIDWM [facility] Last Admin: 06/03/23 08:20 Dose: 500 mg Multivitamins/Vitamin C (Multivitamin Tablet) 1 tab PO DAILY [facility] Last Admin: 06/03/23 08:20 Dose: 1 tab Olanzapine (Olanzapine 7.5 Mg Tablet) 7.5 mg PO BEDTIME [facility] Last Admin: 06/02/23 20:27 Dose: 7.5 mg Ondansetron HCl (Ondansetron Hcl 4 Mg/2 Ml Vial) 4 mg IVPUSH ONCE PRN PRN Reason: Nausea and Vomiting Senna (Sennosides 8.6 Mg Tablet) 17.2 mg PO Q24H PRN PRN Reason: constipation Last Admin: 05/27/23 10:56 Dose: 17.2 mg Thiamine HCl (Thiamine Hcl 100 Mg Tablet) 100 mg PO DAILY [facility] Last Admin: 06/03/23 08:20 Dose: 100 mg Vitamin D (Cholecalciferol (Vitamin D3) 25 Mcg Tablet) 25 mcg PO DAILY [facility] Last Admin: 06/03/23 08:20 Dose: 25 mcg Allergies Allergies Allergy/AdvReac Type Severity Reaction Status Date / Time Penicillins [PENICILLINS] Allergy Unknown rash Verified 05/17/23 22:12 Assessment & Plan Assessment & Plan (1) Major depression with psychotic features: Status: Acute Code(s): F32.3 - Major depressive disorder, single episode, severe with psychotic features Plan 05/19: ECT to start Saturday05/20/23- confirmed with Dr. Garcia. NPO tonight and consents will be done pre ECT tomorrow 05/20: received ECT #1 without event. no change in presentation. continue current mgmt. UA NEG. thiamine and folate started as per medicine recommendation. 05/21: ECT #2 tomorrow. stable. continue current mgmt. 05/22: ECT #2 completed, #3 scheduled for saturday. slight improvement in mood from admission. continue current mgmt. 05/23: stable. ECT #3 tomorrow. continue current mgmt. 05/24: stable, ECT #3 completed without incident. continue current mgmt. ECT #4 scheduled for saturday. 05/25: Patient remains depressed encourage food fluids check labs continue ECT monitor vital signs 05/26: Patient remains severely depressed and withdrawn not taking in adequate nutrition required IV fluids. 05/27: ECT #4 completed, pt smiled today and noted his mood is improved. trazodone DCed over w/e in hopes it would help with orthostasis. slept adequately last night. continue current mgmt. 05/28: no change in presentation from yesterday. ECT #5 tomorrow. continue current mgmt. 05/29: continues poor PO intake. ECT #5 completed today. slightly more active. 05/30: continue current mgmt. ECT #6 tomorrow. 05/31: ECT #6 completed, most smiling and broadest affect seen to date this morning. continue current mgmt. 06/01: Continue current regimen and plans. Continue ECT 06/02: Continue current plans and regimen. 06/03: DC morning zyprexa, otherwise continue current mgmt. ECT #7 today, second bilateral. improving since switch to B/L. Reason for continued inpatient stay Substantial Risk for: inability to function and rapid decompensation Time Spent With Patient Time: Total time managing care of this patient today _25___ minutes.
[2023-06-03] MEDS: OLANZapine 7.5 MG TABLET PO (20:18)
[2023-06-04 07:40] VITALS: BP 118/67; PULSE 95; TEMP 36.2; O2SAT 97
[2023-06-04 08:00] VITALS: BP 122/66; PULSE 97
[2023-06-04 08:17] LABS: Glucose, Whole Blood 113 mg/dL (60-115)
[2023-06-04] MEDS: Multivitamin TABLET 1 TAB PO (08:25)
[2023-06-04] MEDS: Escitalopram Oxalate 10 MG TABLET PO (08:25)
[2023-06-04] MEDS: Folic Acid 1 MG TABLET PO (08:25)
[2023-06-04] MEDS: lisinopriL 10 MG TABLET PO (08:25)
[2023-06-04] MEDS: buPROPion HCl XL 150 MG TAB.ER.24H PO (08:25)
[2023-06-04] MEDS: Atorvastatin Calcium 20 MG TABLET PO (08:25)
[2023-06-04] MEDS: Thiamine HCL 100 MG TABLET PO (08:25)
[2023-06-04] MEDS: Cholecalciferol (Vitamin D3) 25 MCG TABLET PO (08:25)
[2023-06-04] MEDS: metFORMIN HCl 500 MG TABLET PO ×2 (08:25→16:22)
[2023-06-04 09:04] VITALS: BP 118/67; PULSE 95; RESP 18; TEMP 36.2; O2SAT 97
[2023-06-04 19:40] VITALS: BP 152/75; PULSE 98; RESP 14; TEMP 36.7; O2SAT 97
--- NOTE | 2023-06-04 20:06 | P.PNPSI_ITS ---
Subjective Subjective Date of Service: 06/04/23 Reason For Visit: Major Depressive Disorder Subjective Notes: Conditional Voluntary Interim History: Patient with some noted improvement continues to spend time in bed much hill affect In 2018 at [facility] the patient did require bitemporal treatment he is maintaining food and fluids better his outpatient psychiatrist is Dr. Mayo has been taking Wellbutrin Lexapro olanzapine at bedtime Medication Compliance: Yes Mental Status Exam Mental Status Exam Narrative: In today's visit he is alert, pleasant and interactive. Mood much improved hill affect Soft-spoken speech. Moderate eye contact. No signs of psychosis. No SI. Cognitively he has some slowed mentation and some difficulty regarding dates he is future oriented. Judgment is intact. Diagnostics Vital Signs (24Hr): Vital Signs - 24 hr 06/04/23 07:40 06/04/23 08:00 06/04/23 09:04 Temperature 97.1 F 97.1 F Pulse Rate 95 97 95 Respiratory Rate 18 Blood Pressure 118/67 122/66 118/67 Pulse Oximetry 97 97 Oxygen Delivery Method Room Air Room Air BMI result Body Mass Index 24.0 Labs 05/18/23 10:11 06/01/23 07:40 Labs: Laboratory Results - last 48 hr 06/03/23 06/04/23 06:26 08:08 POC Glucose 127 H 113 Medications Medications Current Medications Acetaminophen (Acetaminophen 325 Mg Tablet) 650 mg PO Q6H PRN PRN Reason: Headache/Pain Mild Scale (1-3) Last Admin: 05/20/23 20:15 Dose: 325 mg Acetaminophen (Acetaminophen 325 Mg Tablet) 650 mg PO ONCE PRN PRN Reason: Pain, Mild (Pain Scale 1-3) Al Hydroxide/Mg Hydroxide (Magnesium Hydrox/Alum Hydrox 30 Ml Oral.Susp) 30 ml PO Q6H PRN PRN Reason: Heartburn/Nausea Atorvastatin Calcium (Atorvastatin Calcium 20 Mg Tablet) 20 mg PO DAILY [facility] Last Admin: 06/04/23 08:25 Dose: 20 mg Bupropion HCl (Bupropion Hcl Xl 150 Mg Tab.Er.24h) 150 mg PO DAILY [facility] Last Admin: 06/04/23 08:25 Dose: 150 mg Escitalopram Oxalate (Escitalopram Oxalate 10 Mg Tablet) 10 mg PO DAILY [facility] Last Admin: 06/04/23 08:25 Dose: 10 mg Folic Acid (Folic Acid 1 Mg Tablet) 1 mg PO DAILY [facility] Last Admin: 06/04/23 08:25 Dose: 1 mg Hydroxyzine HCl (Hydroxyzine Hcl 25 Mg Tablet) 25 mg PO Q6H PRN PRN Reason: Anxiety Lisinopril (Lisinopril 10 Mg Tablet) 10 mg PO DAILY [facility]; Protocol Last Admin: 06/04/23 08:25 Dose: 10 mg Magnesium Hydroxide (Milk Of Magnesia 30 Ml Oral.Susp) 30 ml PO DAILY PRN PRN Reason: Constipation Metformin HCl (Metformin Hcl 500 Mg Tablet) 500 mg PO BIDWM [facility] Last Admin: 06/04/23 16:22 Dose: 500 mg Multivitamins/Vitamin C (Multivitamin Tablet) 1 tab PO DAILY [facility] Last Admin: 06/04/23 08:25 Dose: 1 tab Olanzapine (Olanzapine 7.5 Mg Tablet) 7.5 mg PO BEDTIME [facility] Last Admin: 06/03/23 20:18 Dose: 7.5 mg Ondansetron HCl (Ondansetron Hcl 4 Mg/2 Ml Vial) 4 mg IVPUSH ONCE PRN PRN Reason: Nausea and Vomiting Senna (Sennosides 8.6 Mg Tablet) 17.2 mg PO Q24H PRN PRN Reason: constipation Last Admin: 05/27/23 10:56 Dose: 17.2 mg Thiamine HCl (Thiamine Hcl 100 Mg Tablet) 100 mg PO DAILY [facility] Last Admin: 06/04/23 08:25 Dose: 100 mg Vitamin D (Cholecalciferol (Vitamin D3) 25 Mcg Tablet) 25 mcg PO DAILY [facility] Last Admin: 06/04/23 08:25 Dose: 25 mcg Allergies Allergies Allergy/AdvReac Type Severity Reaction Status Date / Time Penicillins [PENICILLINS] Allergy Unknown rash Verified 05/17/23 22:12 Assessment & Plan Assessment & Plan (1) Major depression with psychotic features: Status: Acute Code(s): F32.3 - Major depressive disorder, single episode, severe with psychotic features Plan 05/19: ECT to start Saturday05/20/23- confirmed with Dr. Garcia. NPO tonight and consents will be done pre ECT tomorrow 05/20: received ECT #1 without event. no change in presentation. continue current mgmt. UA NEG. thiamine and folate started as per medicine recommendation. 05/21: ECT #2 tomorrow. stable. continue current mgmt. 05/22: ECT #2 completed, #3 scheduled for saturday. slight improvement in mood from admission. continue current mgmt. 05/23: stable. ECT #3 tomorrow. continue current mgmt. 05/24: stable, ECT #3 completed without incident. continue current mgmt. ECT #4 scheduled for saturday. 05/25: Patient remains depressed encourage food fluids check labs continue ECT monitor vital signs 05/26: Patient remains severely depressed and withdrawn not taking in adequate nutrition required IV fluids. 05/27: ECT #4 completed, pt smiled today and noted his mood is improved. trazodone DCed over w/e in hopes it would help with orthostasis. slept adequately last night. continue current mgmt. 05/28: no change in presentation from yesterday. ECT #5 tomorrow. continue current mgmt. 05/29: continues poor PO intake. ECT #5 completed today. slightly more active. 05/30: continue current mgmt. ECT #6 tomorrow. 05/31: ECT #6 completed, most smiling and broadest affect seen to date this morning. continue current mgmt. 06/01: Continue current regimen and plans. Continue ECT 06/02: Continue current plans and regimen. 06/03: DC morning zyprexa, otherwise continue current mgmt. ECT #7 today, second bilateral. improving since switch to B/L. 06/04/23 Pt doing better some cognitive processing problems cont ect bitemporal monitor cognition ect in am Reason for continued inpatient stay Substantial Risk for: inability to function and rapid decompensation Time Spent With Patient Time: Total time managing care of this patient today ____ minutes.
[2023-06-04] MEDS: OLANZapine 7.5 MG TABLET PO (21:55)
[2023-06-05] VITALS (8 sets, daily range): BP systolic 122–151; BP diastolic 69–85; PULSE 75–93; RESP 14–18; TEMP 36.3–36.8; O2SAT 95–98
[2023-06-05 06:12] LABS: Glucose, Whole Blood 107 mg/dL (60-115)
--- NOTE | 2023-06-05 06:43 | HO.ANESPROP2 ---
[facility] Active Problems Active Problems: All Active Problems (Updated 05/18/23 @ 16:31 by Samuel Booth MD) Major depression with psychotic features (Acute) Routine medical exam (Acute) Past Medical History Medical History HLD (hyperlipidemia) HTN (hypertension) Non-insulin dependent type 2 diabetes mellitus Family History Family history of problems with anesthesia: No Surgical History History of Problems with Anesthesia: No Social History Social History Household Members: Significant Other Housing: Apartment Do you presently have visiting nurse or other home services: No Patient Tobacco Use Status: Former Tobacco user Quit Date: 50 years ago Tobacco use type: Cigarette Smoked in Last 30 Days: No e-Cigarette/Vaping Use: Never Used Patient Interested in Nicotine Replacement: No Patient Given Instructions on How to Stop Smoking: No (n/a) Second Hand Smoke Exposure: No Use of substances other than those prescribed or required for medical reasons: Yes Substance Use Type: Marijuana Substance Use Frequency: Chronic Longstanding Last Used Substance Other:: month ago Currently Displaying Signs/Symptoms of Drug Intoxication Withdrawal: No Any prior treatment program specific to substance use: No Have you been hit, kicked, punched, or otherwise hurt by someone within the past year? If so, by whom?: No Do you feel safe in your current relationship?: Yes Is there a partner from a previous relationship who is making you feel unsafe now?: No Are you made to feel afraid or neglected: No Advance Directives: No Advance Directives Information Provided: No Do you have thoughts of harming others: None Do you have a plan to hurt others: No Plan Recently lost weight without trying: Yes How much weight loss: 14-23 pounds Eating poorly because of decreased appetite: No Nutrition screen score: 4 Nutrition Risks: Dental problems Poor oral hygiene: Yes service: No Sexual orientation: Straight/Heterosexual Meds Allergies Allergy/AdvReac Type Severity Reaction Status Date / Time Penicillins [PENICILLINS] Allergy Unknown rash Verified 05/17/23 22:12 Active Medications: Current Medications Acetaminophen (Acetaminophen 325 Mg Tablet) 650 mg PO Q6H PRN PRN Reason: Headache/Pain Mild Scale (1-3) Last Admin: 05/20/23 20:15 Dose: 325 mg Acetaminophen (Acetaminophen 325 Mg Tablet) 650 mg PO ONCE PRN PRN Reason: Pain, Mild (Pain Scale 1-3) Al Hydroxide/Mg Hydroxide (Magnesium Hydrox/Alum Hydrox 30 Ml Oral.Susp) 30 ml PO Q6H PRN PRN Reason: Heartburn/Nausea Atorvastatin Calcium (Atorvastatin Calcium 20 Mg Tablet) 20 mg PO DAILY [facility] Last Admin: 06/04/23 08:25 Dose: 20 mg Bupropion HCl (Bupropion Hcl Xl 150 Mg Tab.Er.24h) 150 mg PO DAILY [facility] Last Admin: 06/04/23 08:25 Dose: 150 mg Escitalopram Oxalate (Escitalopram Oxalate 10 Mg Tablet) 10 mg PO DAILY [facility] Last Admin: 06/04/23 08:25 Dose: 10 mg Folic Acid (Folic Acid 1 Mg Tablet) 1 mg PO DAILY [facility] Last Admin: 06/04/23 08:25 Dose: 1 mg Hydroxyzine HCl (Hydroxyzine Hcl 25 Mg Tablet) 25 mg PO Q6H PRN PRN Reason: Anxiety Lisinopril (Lisinopril 10 Mg Tablet) 10 mg PO DAILY [facility]; Protocol Last Admin: 06/04/23 08:25 Dose: 10 mg Magnesium Hydroxide (Milk Of Magnesia 30 Ml Oral.Susp) 30 ml PO DAILY PRN PRN Reason: Constipation Metformin HCl (Metformin Hcl 500 Mg Tablet) 500 mg PO BIDWM [facility] Last Admin: 06/04/23 16:22 Dose: 500 mg Multivitamins/Vitamin C (Multivitamin Tablet) 1 tab PO DAILY [facility] Last Admin: 06/04/23 08:25 Dose: 1 tab Olanzapine (Olanzapine 7.5 Mg Tablet) 7.5 mg PO BEDTIME [facility] Last Admin: 06/04/23 21:55 Dose: 7.5 mg Ondansetron HCl (Ondansetron Hcl 4 Mg/2 Ml Vial) 4 mg IVPUSH ONCE PRN PRN Reason: Nausea and Vomiting Senna (Sennosides 8.6 Mg Tablet) 17.2 mg PO Q24H PRN PRN Reason: constipation Last Admin: 05/27/23 10:56 Dose: 17.2 mg Thiamine HCl (Thiamine Hcl 100 Mg Tablet) 100 mg PO DAILY [facility] Last Admin: 06/04/23 08:25 Dose: 100 mg Vitamin D (Cholecalciferol (Vitamin D3) 25 Mcg Tablet) 25 mcg PO DAILY [facility] Last Admin: 06/04/23 08:25 Dose: 25 mcg Home Medications Medication Instructions Recorded Confirmed Last Taken Type atorvastatin 20 mg tablet 20 mg PO DAILY 05/17/23 05/17/23 05/17/23 09:16 History bupropion HCl 150 mg 24 hr tablet, 150 mg PO QAM 05/17/23 05/17/23 05/17/23 09:16 History extended release cholecalciferol (vitamin D3) 25 25 mcg PO DAILY 05/17/23 05/17/23 05/17/23 09:16 History mcg (1,000 unit) tablet citalopram 20 mg tablet 20 mg PO DAILY 05/17/23 05/17/23 05/17/23 09:16 History lisinopril 10 mg tablet 10 mg PO DAILY 05/17/23 05/17/23 05/17/23 09:16 History metformin 500 mg tablet 500 mg PO BIDWMEAL 05/17/23 05/17/23 05/17/23 09:16 History multivitamin 1 tab PO DAILY 05/17/23 05/17/23 05/17/23 09:16 History olanzapine 2.5 mg tablet 2.5 mg PO DAILY 05/17/23 05/17/23 05/17/23 09:21 History olanzapine 7.5 mg tablet 7.5 mg PO BEDTIME 05/17/23 05/17/23 05/16/23 19:46 History trazodone 100 mg tablet 100 mg PO BEDTIME 05/17/23 05/17/23 05/16/23 19:46 History Exam Exam Date and Time: June 05, 2023 0643 Height,Weight and Vital Signs: Height 5 ft 9 in Weight 73.754 kg Last Vital Signs Temp 97.5 F 06/05/23 06:32 Pulse 79 06/05/23 06:32 Resp 15 06/05/23 06:32 BP 151/79 H 06/05/23 06:32 Pulse Ox 98 06/05/23 06:32 O2 Del Method Room Air 06/05/23 06:32 O2 Flow Rate 2 06/03/23 07:36 Pertinent Lab Results Pertinent Lab Results: Laboratory Tests 05/18/23 05/18/23 05/18/23 08:18 10:11 14:50 WBC 11.8 H RBC 5.55 Hgb 17.2 Hct 48.2 MCV 86.8 MCH 31.0 MCHC 35.7 RDW 12.5 Plt Count 414 H MPV 8.5 L Immature Gran % (Auto) 0.3 Neut % (Auto) 80.0 H Lymph % (Auto) 9.4 L Mathews % (Auto) 9.1 Eos % (Auto) 0.8 Baso % (Auto) 0.4 Lymph # (Auto) 1.1 L Mathews # (Auto) 1.1 Eos # (Auto) 0.1 Baso # (Auto) 0.1 Abs Immat Gran (auto) 0.03 Absolute Neuts (auto) 9.5 H Absolute Nucleated RBC 0.000 Nucleated RBC % (auto) 0.0 Sodium 136 Potassium 4.3 Chloride 97 Carbon Dioxide 25 Anion Gap 18 BUN 18 H Creatinine 0.84 Estim Creat Clear Calc 79.4 Estimated GFR > 60 POC Glucose 99 Random Glucose Fasting Glucose 92 Calcium 10.1 Total Bilirubin 0.8 AST 25 ALT 30 Alkaline Phosphatase 112 Total Protein 7.3 Albumin 4.2 Triglycerides 75 Cholesterol 122 LDL Cholesterol, Calc 57 HDL Cholesterol 50 Vitamin B12 1394 H Folate 16.3 TSH 0.62 Urine Color Dark Yellow Urine Appearance Cloudy Urine pH 5.0 Ur Specific Yoder >= 1.030 H Urine Protein Trace Urine Glucose (UA) Negative Urine Ketones 15 Urine Blood Negative Urine Nitrite Negative Ur Leukocyte Esterase Negative 05/19/23 05/20/23 05/21/23 07:57 07:27 08:03 WBC RBC Hgb Hct MCV MCH MCHC RDW Plt Count MPV Immature Gran % (Auto) Neut % (Auto) Lymph % (Auto) Mathews % (Auto) Eos % (Auto) Baso % (Auto) Lymph # (Auto) Mathews # (Auto) Eos # (Auto) Baso # (Auto) Abs Immat Gran (auto) Absolute Neuts (auto) Absolute Nucleated RBC Nucleated RBC % (auto) Sodium Potassium Chloride Carbon Dioxide Anion Gap BUN Creatinine Estim Creat Clear Calc Estimated GFR POC Glucose 104 110 96 Random Glucose Fasting Glucose Calcium Total Bilirubin AST ALT Alkaline Phosphatase Total Protein Albumin Triglycerides Cholesterol LDL Cholesterol, Calc HDL Cholesterol Vitamin B12 Folate TSH Urine Color Urine Appearance Urine pH Ur Specific Yoder Urine Protein Urine Glucose (UA) Urine Ketones Urine Blood Urine Nitrite Ur Leukocyte Esterase 05/22/23 05/23/23 05/24/23 06:35 10:48 08:01 WBC RBC Hgb Hct MCV MCH MCHC RDW Plt Count MPV Immature Gran % (Auto) Neut % (Auto) Lymph % (Auto) Mathews % (Auto) Eos % (Auto) Baso % (Auto) Lymph # (Auto) Mathews # (Auto) Eos # (Auto) Baso # (Auto) Abs Immat Gran (auto) Absolute Neuts (auto) Absolute Nucleated RBC Nucleated RBC % (auto) Sodium Potassium Chloride Carbon Dioxide Anion Gap BUN Creatinine Estim Creat Clear Calc Estimated GFR POC Glucose 108 105 86 Random Glucose Fasting Glucose Calcium Total Bilirubin AST ALT Alkaline Phosphatase Total Protein Albumin Triglycerides Cholesterol LDL Cholesterol, Calc HDL Cholesterol Vitamin B12 Folate TSH Urine Color Urine Appearance Urine pH Ur Specific Yoder Urine Protein Urine Glucose (UA) Urine Ketones Urine Blood Urine Nitrite Ur Leukocyte Esterase 05/25/23 05/25/23 05/26/23 07:51 07:59 08:08 WBC RBC Hgb Hct MCV MCH MCHC RDW Plt Count MPV Immature Gran % (Auto) Neut % (Auto) Lymph % (Auto) Mathews % (Auto) Eos % (Auto) Baso % (Auto) Lymph # (Auto) Mathews # (Auto) Eos # (Auto) Baso # (Auto) Abs Immat Gran (auto) Absolute Neuts (auto) Absolute Nucleated RBC Nucleated RBC % (auto) Sodium Potassium Chloride Carbon Dioxide Anion Gap BUN Creatinine 0.76 Estim Creat Clear Calc 87.8 Estimated GFR > 60 POC Glucose 95 92 Random Glucose Fasting Glucose Calcium Total Bilirubin AST ALT Alkaline Phosphatase Total Protein Albumin Triglycerides Cholesterol LDL Cholesterol, Calc HDL Cholesterol Vitamin B12 Folate TSH Urine Color Urine Appearance Urine pH Ur Specific Yoder Urine Protein Urine Glucose (UA) Urine Ketones Urine Blood Urine Nitrite Ur Leukocyte Esterase 05/26/23 05/26/23 05/27/23 12:10 18:45 05:49 WBC RBC Hgb Hct MCV MCH MCHC RDW Plt Count MPV Immature Gran % (Auto) Neut % (Auto) Lymph % (Auto) Mathews % (Auto) Eos % (Auto) Baso % (Auto) Lymph # (Auto) Mathews # (Auto) Eos # (Auto) Baso # (Auto) Abs Immat Gran (auto) Absolute Neuts (auto) Absolute Nucleated RBC Nucleated RBC % (auto) Sodium 140 140 Potassium 4.2 4.1 Chloride 103 104 Carbon Dioxide 27 25 Anion Gap 14 15 BUN 13 12 Creatinine 0.83 0.74 Estim Creat Clear Calc 80.4 90.2 Estimated GFR > 60 > 60 POC Glucose 88 Random Glucose 100 126 H Fasting Glucose Calcium 9.7 9.4 Total Bilirubin AST ALT Alkaline Phosphatase Total Protein Albumin Triglycerides Cholesterol LDL Cholesterol, Calc HDL Cholesterol Vitamin B12 Folate TSH Urine Color Urine Appearance Urine pH Ur Specific Yoder Urine Protein Urine Glucose (UA) Urine Ketones Urine Blood Urine Nitrite Ur Leukocyte Esterase 05/28/23 05/29/23 05/30/23 07:56 06:38 07:45 WBC RBC Hgb Hct MCV MCH MCHC RDW Plt Count MPV Immature Gran % (Auto) Neut % (Auto) Lymph % (Auto) Mathews % (Auto) Eos % (Auto) Baso % (Auto) Lymph # (Auto) Mathews # (Auto) Eos # (Auto) Baso # (Auto) Abs Immat Gran (auto) Absolute Neuts (auto) Absolute Nucleated RBC Nucleated RBC % (auto) Sodium Potassium Chloride Carbon Dioxide Anion Gap BUN Creatinine Estim Creat Clear Calc Estimated GFR POC Glucose 99 113 111 Random Glucose Fasting Glucose Calcium Total Bilirubin AST ALT Alkaline Phosphatase Total Protein Albumin Triglycerides Cholesterol LDL Cholesterol, Calc HDL Cholesterol Vitamin B12 Folate TSH Urine Color Urine Appearance Urine pH Ur Specific Yoder Urine Protein Urine Glucose (UA) Urine Ketones Urine Blood Urine Nitrite Ur Leukocyte Esterase 05/31/23 05/31/23 06/01/23 07:00 09:16 07:40 WBC RBC Hgb Hct MCV MCH MCHC RDW Plt Count MPV Immature Gran % (Auto) Neut % (Auto) Lymph % (Auto) Mathews % (Auto) Eos % (Auto) Baso % (Auto) Lymph # (Auto) Mathews # (Auto) Eos # (Auto) Baso # (Auto) Abs Immat Gran (auto) Absolute Neuts (auto) Absolute Nucleated RBC Nucleated RBC % (auto) Sodium Potassium Chloride Carbon Dioxide Anion Gap BUN Creatinine 0.77 Estim Creat Clear Calc 86.7 Estimated GFR > 60 POC Glucose 102 134 H Random Glucose Fasting Glucose Calcium Total Bilirubin AST ALT Alkaline Phosphatase Total Protein Albumin Triglycerides Cholesterol LDL Cholesterol, Calc HDL Cholesterol Vitamin B12 Folate TSH Urine Color Urine Appearance Urine pH Ur Specific Yoder Urine Protein Urine Glucose (UA) Urine Ketones Urine Blood Urine Nitrite Ur Leukocyte Esterase 06/01/23 06/02/23 06/03/23 07:50 07:56 06:26 WBC RBC Hgb Hct MCV MCH MCHC RDW Plt Count MPV Immature Gran % (Auto) Neut % (Auto) Lymph % (Auto) Mathews % (Auto) Eos % (Auto) Baso % (Auto) Lymph # (Auto) Mathews # (Auto) Eos # (Auto) Baso # (Auto) Abs Immat Gran (auto) Absolute Neuts (auto) Absolute Nucleated RBC Nucleated RBC % (auto) Sodium Potassium Chloride Carbon Dioxide Anion Gap BUN Creatinine Estim Creat Clear Calc Estimated GFR POC Glucose 102 100 127 H Random Glucose Fasting Glucose Calcium Total Bilirubin AST ALT Alkaline Phosphatase Total Protein Albumin Triglycerides Cholesterol LDL Cholesterol, Calc HDL Cholesterol Vitamin B12 Folate TSH Urine Color Urine Appearance Urine pH Ur Specific Yoder Urine Protein Urine Glucose (UA) Urine Ketones Urine Blood Urine Nitrite Ur Leukocyte Esterase 06/04/23 06/05/23 08:08 05:59 WBC RBC Hgb Hct MCV MCH MCHC RDW Plt Count MPV Immature Gran % (Auto) Neut % (Auto) Lymph % (Auto) Mathews % (Auto) Eos % (Auto) Baso % (Auto) Lymph # (Auto) Mathews # (Auto) Eos # (Auto) Baso # (Auto) Abs Immat Gran (auto) Absolute Neuts (auto) Absolute Nucleated RBC Nucleated RBC % (auto) Sodium Potassium Chloride Carbon Dioxide Anion Gap BUN Creatinine Estim Creat Clear Calc Estimated GFR POC Glucose 113 107 Random Glucose Fasting Glucose Calcium Total Bilirubin AST ALT Alkaline Phosphatase Total Protein Albumin Triglycerides Cholesterol LDL Cholesterol, Calc HDL Cholesterol Vitamin B12 Folate TSH Urine Color Urine Appearance Urine pH Ur Specific Yoder Urine Protein Urine Glucose (UA) Urine Ketones Urine Blood Urine Nitrite Ur Leukocyte Esterase Airway Mallampati Class: II TM Dist: >3cm Neck ROM: Full Partial: Upper Heart: rrr Lungs: cta Assessment and Plan Assessment Anesthesia Assessment: Anesthesia Plan Discussed and Chart Reviewed Final Anesthetic Review Family History of Problems with Anesthesia: No History of Problems with Anesthesia: No NPO: Yes ASA Class: III Final Preanesthetic Review: No Changes in Pt Med Stat, Meds/Allgs Chart Reviewed and Consent Obtained/Reviewed Patient Risk: Intermediate Procedure Risk: Intermediate Anesthetic Plan Anesthetic Plan: GA Disposition: Standard PACU
--- NOTE | 2023-06-05 07:28 | MHC.SHP ---
Pre-Procedural Eval Section A Date of Service: 06/05/23 The patient is an INPATIENT: Yes Changes since office visit: Yes Cold of Flu in the past 2 weeks, Yes Changes in Medication and Yes Patient answered all questions; No New Medical Problems The History & Physical has been completed within 30 days and I have reviewed it.: Yes Section B Chief Complaint: Major Depressive Disorder Allergies: Allergies Allergy/AdvReac Type Severity Reaction Status Date / Time Penicillins [PENICILLINS] Allergy Unknown rash Verified 05/17/23 22:12 Plan I have reviewed the history and physical and performed a pertinent physical examination on my patient. No changes have occurred unless specified. Time Spent With Patient Time: Total time managing care of this patient today ____ minutes.
--- NOTE | 2023-06-05 07:28 | HO.ECTPROC ---
ECT Procedure Note Diagnosis/Treatment Date of Service: 06/05/23 Diagnosis: Major Depressive Disorder Previous ECT Date: 06/03/23 Current Treatment Number: 8 Treatment: Series Interval Clinical Notes: Patient has noted hill range of affect some thought blocking and memory impairment not delirious reasoning intact mood much improved Some transient hypertension post treatment Time: Total time managing care of this patient today ____ minutes. ECT Settings Device: THYMATRON DGx Electrode Placement: Bitemporal Program/Pulse Width: 0.50 Energy Percent: 100 Seizure Duration By EEG (in seconds): 33 Medications Administration General Anesthetic: Etomidate (14) Muscle Relaxant: Succinylcholine (100) Ancillary Medications Analgesics: Torodol - Pre ECT Anti-emetics: Zofran - Pre ECT Miscillaneous Medications: Propofol Airway Management Airway Management: Bag Mask Ventilation Treatment Recommendations No Changes Recommended: No change Pt Tolerated Procedure w/o Issue: Yes
[2023-06-05] MEDS: Multivitamin TABLET 1 TAB PO (08:58)
[2023-06-05] MEDS: buPROPion HCl XL 150 MG TAB.ER.24H PO (08:58)
[2023-06-05] MEDS: Folic Acid 1 MG TABLET PO (08:59)
[2023-06-05] MEDS: metFORMIN HCl 500 MG TABLET PO ×2 (08:59→17:17)
[2023-06-05] MEDS: Atorvastatin Calcium 20 MG TABLET PO (08:59)
[2023-06-05] MEDS: Escitalopram Oxalate 10 MG TABLET PO (08:59)
[2023-06-05] MEDS: lisinopriL 10 MG TABLET PO (09:00)
[2023-06-05] MEDS: Cholecalciferol (Vitamin D3) 25 MCG TABLET PO (09:00)
[2023-06-05] MEDS: Thiamine HCL 100 MG TABLET PO (09:00)
[2023-06-05] MEDS: OLANZapine 7.5 MG TABLET PO (21:14)
--- NOTE | 2023-06-05 21:43 | HO.PSYCHPN ---
Subjective Subjective Date of Service: 06/05/23 Reason For Visit: Major Depressive Disorder Subjective Notes: Conditional Voluntary Interim History: Patient showing clear improvement some cognition impairment with bitemporal ECT continue to monitor response much improved eating drinking hill range of emotion Medication Compliance: Yes Mental Status Exam Mental Status Exam Narrative: In today's visit he is alert, pleasant and interactive. Mood much improved hill affect Soft-spoken speech. Moderate eye contact. No signs of psychosis. No SI. Cognitively he has some slowed mentation and some difficulty regarding dates he is future oriented. Judgment is intact. Good impulse control Diagnostics Vital Signs (24Hr): Vital Signs - 24 hr 06/05/23 06:32 06/05/23 06:54 06/05/23 07:45 Temperature 97.5 F 97.8 F 97.4 F Pulse Rate 79 78 80 Respiratory Rate 15 16 14 Blood Pressure 151/79 H 147/82 H 144/72 H Pulse Oximetry 98 97 97 Oxygen Delivery Method Room Air Nasal Cannula Oxygen Flow Rate 2 06/05/23 07:50 06/05/23 07:55 06/05/23 08:00 Temperature 97.3 F Pulse Rate 81 81 82 Respiratory Rate 15 15 16 Blood Pressure 140/81 H 146/85 H 146/81 H Pulse Oximetry 97 97 97 Oxygen Delivery Method Nasal Cannula Nasal Cannula Nasal Cannula Oxygen Flow Rate 2 2 2 06/05/23 08:00 06/05/23 08:15 Temperature 97.5 F Pulse Rate 79 75 Respiratory Rate 16 Blood Pressure 148/79 H 148/81 H Pulse Oximetry 95 Oxygen Delivery Method Room Air Oxygen Flow Rate BMI result Body Mass Index 24.0 Labs 05/18/23 10:11 06/01/23 07:40 Labs: Laboratory Results - last 48 hr 06/04/23 06/05/23 08:08 05:59 POC Glucose 113 107 Medications Medications Current Medications Acetaminophen (Acetaminophen 325 Mg Tablet) 650 mg PO Q6H PRN PRN Reason: Headache/Pain Mild Scale (1-3) Last Admin: 05/20/23 20:15 Dose: 325 mg Acetaminophen (Acetaminophen 325 Mg Tablet) 650 mg PO ONCE PRN PRN Reason: Pain, Mild (Pain Scale 1-3) Al Hydroxide/Mg Hydroxide (Magnesium Hydrox/Alum Hydrox 30 Ml Oral.Susp) 30 ml PO Q6H PRN PRN Reason: Heartburn/Nausea Atorvastatin Calcium (Atorvastatin Calcium 20 Mg Tablet) 20 mg PO DAILY [facility] Last Admin: 06/05/23 08:59 Dose: 20 mg Bupropion HCl (Bupropion Hcl Xl 150 Mg Tab.Er.24h) 150 mg PO DAILY [facility] Last Admin: 06/05/23 08:58 Dose: 150 mg Escitalopram Oxalate (Escitalopram Oxalate 10 Mg Tablet) 10 mg PO DAILY [facility] Last Admin: 06/05/23 08:59 Dose: 10 mg Folic Acid (Folic Acid 1 Mg Tablet) 1 mg PO DAILY [facility] Last Admin: 06/05/23 08:59 Dose: 1 mg Hydroxyzine HCl (Hydroxyzine Hcl 25 Mg Tablet) 25 mg PO Q6H PRN PRN Reason: Anxiety Lisinopril (Lisinopril 10 Mg Tablet) 10 mg PO DAILY [facility]; Protocol Last Admin: 06/05/23 09:00 Dose: 10 mg Magnesium Hydroxide (Milk Of Magnesia 30 Ml Oral.Susp) 30 ml PO DAILY PRN PRN Reason: Constipation Metformin HCl (Metformin Hcl 500 Mg Tablet) 500 mg PO BIDWM [facility] Last Admin: 06/05/23 17:17 Dose: 500 mg Multivitamins/Vitamin C (Multivitamin Tablet) 1 tab PO DAILY [facility] Last Admin: 06/05/23 08:58 Dose: 1 tab Olanzapine (Olanzapine 7.5 Mg Tablet) 7.5 mg PO BEDTIME [facility] Last Admin: 06/05/23 21:14 Dose: 7.5 mg Ondansetron HCl (Ondansetron Hcl 4 Mg/2 Ml Vial) 4 mg IVPUSH ONCE PRN PRN Reason: Nausea and Vomiting Senna (Sennosides 8.6 Mg Tablet) 17.2 mg PO Q24H PRN PRN Reason: constipation Last Admin: 05/27/23 10:56 Dose: 17.2 mg Thiamine HCl (Thiamine Hcl 100 Mg Tablet) 100 mg PO DAILY [facility] Last Admin: 06/05/23 09:00 Dose: 100 mg Vitamin D (Cholecalciferol (Vitamin D3) 25 Mcg Tablet) 25 mcg PO DAILY [facility] Last Admin: 06/05/23 09:00 Dose: 25 mcg Allergies Allergies Allergy/AdvReac Type Severity Reaction Status Date / Time Penicillins [PENICILLINS] Allergy Unknown rash Verified 05/17/23 22:12 Assessment & Plan Assessment & Plan (1) Major depression with psychotic features: Status: Acute Code(s): F32.3 - Major depressive disorder, single episode, severe with psychotic features Plan 05/19: ECT to start Saturday05/20/23- confirmed with Dr. Garcia. NPO tonight and consents will be done pre ECT tomorrow 05/20: received ECT #1 without event. no change in presentation. continue current mgmt. UA NEG. thiamine and folate started as per medicine recommendation. 05/21: ECT #2 tomorrow. stable. continue current mgmt. 05/22: ECT #2 completed, #3 scheduled for saturday. slight improvement in mood from admission. continue current mgmt. 05/23: stable. ECT #3 tomorrow. continue current mgmt. 05/24: stable, ECT #3 completed without incident. continue current mgmt. ECT #4 scheduled for saturday. 05/25: Patient remains depressed encourage food fluids check labs continue ECT monitor vital signs 05/26: Patient remains severely depressed and withdrawn not taking in adequate nutrition required IV fluids. 05/27: ECT #4 completed, pt smiled today and noted his mood is improved. trazodone DCed over w/e in hopes it would help with orthostasis. slept adequately last night. continue current mgmt. 05/28: no change in presentation from yesterday. ECT #5 tomorrow. continue current mgmt. 05/29: continues poor PO intake. ECT #5 completed today. slightly more active. 05/30: continue current mgmt. ECT #6 tomorrow. 05/31: ECT #6 completed, most smiling and broadest affect seen to date this morning. continue current mgmt. 06/01: Continue current regimen and plans. Continue ECT 06/02: Continue current plans and regimen. 06/03: DC morning zyprexa, otherwise continue current mgmt. ECT #7 today, second bilateral. improving since switch to B/L. 06/04/23 Pt doing better some cognitive processing problems cont ect bitemporal monitor cognition ect in am 06/05/2023 Patient shows clear improvement monitor response after ECT 9. Last 3 treatments bitemporal did have bilateral treatments in 2018 at [facility] Reason for continued inpatient stay Substantial Risk for: harm to self and rapid decompensation Time Spent With Patient Time: Total time managing care of this patient today ____ minutes.
[2023-06-06 07:54] VITALS: BP 138/71; PULSE 80; RESP 16; TEMP 36.6; O2SAT 97
[2023-06-06 07:59] LABS: Glucose, Whole Blood 108 mg/dL (60-115)
[2023-06-06 08:24] VITALS: BMI 24.1
[2023-06-06 08:30] VITALS: BP 124/71; PULSE 76
[2023-06-06] MEDS: metFORMIN HCl 500 MG TABLET PO ×2 (08:36→16:30)
[2023-06-06] MEDS: Escitalopram Oxalate 10 MG TABLET PO (08:36)
[2023-06-06] MEDS: Cholecalciferol (Vitamin D3) 25 MCG TABLET PO (08:37)
[2023-06-06] MEDS: Multivitamin TABLET 1 TAB PO (08:37)
[2023-06-06] MEDS: Folic Acid 1 MG TABLET PO (08:37)
[2023-06-06] MEDS: Atorvastatin Calcium 20 MG TABLET PO (08:37)
[2023-06-06] MEDS: buPROPion HCl XL 150 MG TAB.ER.24H PO (08:37)
[2023-06-06] MEDS: Thiamine HCL 100 MG TABLET PO (08:38)
[2023-06-06] MEDS: lisinopriL 10 MG TABLET PO (08:38)
--- NOTE | 2023-06-06 14:31 | P.PNPSI_ITS ---
Subjective Subjective Date of Service: 06/06/23 Reason For Visit: Major Depressive Disorder Subjective Notes: Conditional Voluntary Interim History: Patient seen psychiatric follow-up case reviewed in team patient is feeling much more like himself there is some cognitive dulling difficulty with attention mood markedly improved no SI no psychosis patient wishes to try and stop with ECT here has had 8. Will give a chance to cognitively clear evaluate for discharge Medication Compliance: Yes Attending Groups: Yes Mental Status Exam Mental Status Exam Narrative: In today's visit he is alert, pleasant and interactive. Mood much improved hill affect Soft-spoken speech. Moderate eye contact. No signs of psychosis. No SI. Cognitively he has some slowed mentation and some difficulty regarding dates he is future oriented. Judgment is intact. Good impulse control Diagnostics Vital Signs (24Hr): Vital Signs - 24 hr 06/05/23 20:36 06/06/23 07:54 06/06/23 08:30 Temperature 98.2 F 97.8 F Pulse Rate 93 80 76 Respiratory Rate 18 16 Blood Pressure 122/69 138/71 124/71 Pulse Oximetry 96 97 Oxygen Delivery Method Room Air Room Air BMI result Body Mass Index 24.1 Labs 05/18/23 10:11 06/01/23 07:40 Labs: Laboratory Results - last 48 hr 06/05/23 06/06/23 05:59 07:48 POC Glucose 107 108 Medications Medications Current Medications Acetaminophen (Acetaminophen 325 Mg Tablet) 650 mg PO Q6H PRN PRN Reason: Headache/Pain Mild Scale (1-3) Last Admin: 05/20/23 20:15 Dose: 325 mg Acetaminophen (Acetaminophen 325 Mg Tablet) 650 mg PO ONCE PRN PRN Reason: Pain, Mild (Pain Scale 1-3) Al Hydroxide/Mg Hydroxide (Magnesium Hydrox/Alum Hydrox 30 Ml Oral.Susp) 30 ml PO Q6H PRN PRN Reason: Heartburn/Nausea Atorvastatin Calcium (Atorvastatin Calcium 20 Mg Tablet) 20 mg PO DAILY [facility] Last Admin: 06/06/23 08:37 Dose: 20 mg Bupropion HCl (Bupropion Hcl Xl 150 Mg Tab.Er.24h) 150 mg PO DAILY [facility] Last Admin: 06/06/23 08:37 Dose: 150 mg Escitalopram Oxalate (Escitalopram Oxalate 10 Mg Tablet) 10 mg PO DAILY [facility] Last Admin: 06/06/23 08:36 Dose: 10 mg Folic Acid (Folic Acid 1 Mg Tablet) 1 mg PO DAILY [facility] Last Admin: 06/06/23 08:37 Dose: 1 mg Hydroxyzine HCl (Hydroxyzine Hcl 25 Mg Tablet) 25 mg PO Q6H PRN PRN Reason: Anxiety Lisinopril (Lisinopril 10 Mg Tablet) 10 mg PO DAILY [facility]; Protocol Last Admin: 06/06/23 08:38 Dose: 10 mg Magnesium Hydroxide (Milk Of Magnesia 30 Ml Oral.Susp) 30 ml PO DAILY PRN PRN Reason: Constipation Metformin HCl (Metformin Hcl 500 Mg Tablet) 500 mg PO BIDWM [facility] Last Admin: 06/06/23 08:36 Dose: 500 mg Multivitamins/Vitamin C (Multivitamin Tablet) 1 tab PO DAILY [facility] Last Admin: 06/06/23 08:37 Dose: 1 tab Olanzapine (Olanzapine 7.5 Mg Tablet) 7.5 mg PO BEDTIME [facility] Last Admin: 06/05/23 21:14 Dose: 7.5 mg Ondansetron HCl (Ondansetron Hcl 4 Mg/2 Ml Vial) 4 mg IVPUSH ONCE PRN PRN Reason: Nausea and Vomiting Senna (Sennosides 8.6 Mg Tablet) 17.2 mg PO Q24H PRN PRN Reason: constipation Last Admin: 05/27/23 10:56 Dose: 17.2 mg Thiamine HCl (Thiamine Hcl 100 Mg Tablet) 100 mg PO DAILY [facility] Last Admin: 06/06/23 08:38 Dose: 100 mg Vitamin D (Cholecalciferol (Vitamin D3) 25 Mcg Tablet) 25 mcg PO DAILY [facility] Last Admin: 06/06/23 08:37 Dose: 25 mcg Allergies Allergies Allergy/AdvReac Type Severity Reaction Status Date / Time Penicillins [PENICILLINS] Allergy Unknown rash Verified 05/17/23 22:12 Assessment & Plan Assessment & Plan (1) Major depression with psychotic features: Status: Acute Code(s): F32.3 - Major depressive disorder, single episode, severe with psychotic features Plan 05/19: ECT to start Saturday05/20/23- confirmed with Dr. Garcia. NPO tonight and consents will be done pre ECT tomorrow 05/20: received ECT #1 without event. no change in presentation. continue current mgmt. UA NEG. thiamine and folate started as per medicine recommendation. 05/21: ECT #2 tomorrow. stable. continue current mgmt. 10/18: ECT #2 completed, #3 scheduled for saturday. slight improvement in mood from admission. continue current mgmt. 05/23: stable. ECT #3 tomorrow. continue current mgmt. 05/24: stable, ECT #3 completed without incident. continue current mgmt. ECT #4 scheduled for saturday. 05/25: Patient remains depressed encourage food fluids check labs continue ECT monitor vital signs 05/26: Patient remains severely depressed and withdrawn not taking in adequate nutrition required IV fluids. 05/27: ECT #4 completed, pt smiled today and noted his mood is improved. trazodone DCed over w/e in hopes it would help with orthostasis. slept adequately last night. continue current mgmt. 05/28: no change in presentation from yesterday. ECT #5 tomorrow. continue current mgmt. 05/29: continues poor PO intake. ECT #5 completed today. slightly more active. 05/30: continue current mgmt. ECT #6 tomorrow. 05/31: ECT #6 completed, most smiling and broadest affect seen to date this morning. continue current mgmt. 06/01: Continue current regimen and plans. Continue ECT 06/02: Continue current plans and regimen. 06/03: DC morning zyprexa, otherwise continue current mgmt. ECT #7 today, second bilateral. improving since switch to B/L. 06/04/23 Pt doing better some cognitive processing problems cont ect bitemporal monitor cognition ect in am 06/05/2023 Patient shows clear improvement monitor response after ECT 9. Last 3 treatments bitemporal did have bilateral treatments in 2018 at [facility] 06-27 Will hold series for now evaluate for discharge over the next few days evaluate consideration of outpatient ECT Reason for continued inpatient stay Substantial Risk for: harm to self and inability to function Time Spent With Patient Time: Total time managing care of this patient today ____ minutes.
[2023-06-06 20:01] VITALS: BP 135/60; PULSE 89; RESP 18; TEMP 36.6; O2SAT 97
[2023-06-06] MEDS: OLANZapine 7.5 MG TABLET PO (21:33)
[2023-06-07 06:00] VITALS: BP 116/66; PULSE 83; TEMP 36.7; O2SAT 96
[2023-06-07 07:40] LABS: Glucose, Whole Blood 107 mg/dL (60-115)
[2023-06-07] MEDS: Thiamine HCL 100 MG TABLET PO (08:38)
[2023-06-07] MEDS: Multivitamin TABLET 1 TAB PO (08:38)
[2023-06-07] MEDS: Atorvastatin Calcium 20 MG TABLET PO (08:38)
[2023-06-07] MEDS: lisinopriL 10 MG TABLET PO (08:38)
[2023-06-07] MEDS: Folic Acid 1 MG TABLET PO (08:38)
[2023-06-07] MEDS: metFORMIN HCl 500 MG TABLET PO ×2 (08:38→16:56)
[2023-06-07] MEDS: buPROPion HCl XL 150 MG TAB.ER.24H PO (08:38)
[2023-06-07] MEDS: Escitalopram Oxalate 10 MG TABLET PO (08:38)
[2023-06-07] MEDS: Cholecalciferol (Vitamin D3) 25 MCG TABLET PO (08:38)
--- NOTE | 2023-06-07 11:57 | PM.PSYDC ---
DS: Providers Provider Date of Service: 06/07/23 Date of admission: 05/17/23 15:39 Primary care physician: Unknown Physician DS: Diagnosis Discharge Diagnosis (1) Major depression with psychotic features: Status: Acute DS: Medications Discharge Medications Home Medications: Home Medications Medication Instructions Recorded Confirmed atorvastatin 20 mg tablet 20 mg PO DAILY 05/17/23 05/17/23 cholecalciferol (vitamin D3) 25 25 mcg PO DAILY 05/17/23 05/17/23 mcg (1,000 unit) tablet citalopram 20 mg tablet 20 mg PO DAILY 05/17/23 05/17/23 lisinopril 10 mg tablet 10 mg PO DAILY 05/17/23 05/17/23 metformin 500 mg tablet 500 mg PO BIDWMEAL 05/17/23 05/17/23 multivitamin 1 tab PO DAILY 05/17/23 05/17/23 Previous Rx's Medication Instructions Recorded bupropion HCl 150 mg 24 hr tablet, 150 mg PO QAM 30 days #30 tabs 06/07/23 extended release olanzapine 7.5 mg tablet 7.5 mg PO BEDTIME 30 days #30 tabs 06/07/23 Mental Status Exam Mental Status Exam Narrative: In today's visit he is alert, pleasant and interactive. Mood much improved hill affect Soft-spoken speech. Moderate eye contact. No signs of psychosis. No SI/HI/AVH. Cognitively he has some slowed mentation and some difficulty regarding dates he is future oriented. Judgment is intact. Good impulse control Data Data Completed and Pending Completed studies during hospitalization [Text1]: 06/01/23 06/01/23 06/02/23 07:40 07:50 07:56 Creatinine 0.77 Estim Creat Clear Calc 86.7 Estimated GFR > 60 POC Glucose 102 100 06/03/23 06/04/23 06/05/23 06:26 08:08 05:59 Creatinine Estim Creat Clear Calc Estimated GFR POC Glucose 127 H 113 107 06/06/23 06/07/23 07:48 07:34 Creatinine Estim Creat Clear Calc Estimated GFR POC Glucose 108 107 DS: Summary Hospital Course Hospital Course: per 05/18 admission note: met with patient. Discussed with Nursing. Transfer from [facility] with plan for ECT treatment. Patient endorses significant depression, anxiety, lack of motivation, helplessness disturbed sleep and appetite perseveration. Does deny being suicidal. Does endorse hallucinations of noises in the background. Hopeful regarding ECT as this was successful back in 2018. No substance issues. No current medication concerns Past Psychiatric History: severe major depression with psychosis. He CT in 2018 successful. Current psychiatrist is Dr. Mayo. No history of suicide attempts Medical Evaluation Reviewed: Hospitalist Sarah Pending [facility] Medical History HLD (hyperlipidemia) HTN (hypertension) Non-insulin dependent type 2 diabetes mellitus Social History: lives with his girlfriend in [place] for the last 4 years. Has 2 adult children. 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 Substance History: denied Precis: 05/19: ECT to start Saturday05/20/23- confirmed with Dr. Garcia. NPO tonight and consents will be done pre ECT tomorrow 05/20: received ECT #1 without event. no change in presentation. continue current mgmt. UA NEG. thiamine and folate started as per medicine recommendation. 05/21: ECT #2 tomorrow. stable. continue current mgmt. 05/22: ECT #2 completed, #3 scheduled for saturday. slight improvement in mood from admission. continue current mgmt. 05/23: stable. ECT #3 tomorrow. continue current mgmt. 05/24: stable, ECT #3 completed without incident. continue current mgmt. ECT #4 scheduled for saturday. 05/25: Patient remains depressed encourage food fluids check labs continue ECT monitor vital signs 05/26: Patient remains severely depressed and withdrawn not taking in adequate nutrition required IV fluids. 05/27: ECT #4 completed, pt smiled today and noted his mood is improved. trazodone DCed over w/e in hopes it would help with orthostasis. slept adequately last night. continue current mgmt. 05/28: no change in presentation from yesterday. ECT #5 tomorrow. continue current mgmt. 05/29: continues poor PO intake. ECT #5 completed today. slightly more active. 05/30: continue current mgmt. ECT #6 tomorrow. 05/31: ECT #6 completed, most smiling and broadest affect seen to date this morning. continue current mgmt. 06/01: Continue current regimen and plans. Continue ECT 06/02: Continue current plans and regimen. 06/03: DC morning zyprexa, otherwise continue current mgmt. ECT #7 today, second bilateral. improving since switch to B/L. 06/04: Pt doing better some cognitive processing problems cont ect bitemporal monitor cognition ect in am 06/05: Patient shows clear improvement monitor response after ECT 9. Last 3 treatments bitemporal did have bilateral treatments in 2018 at [facility] 06/06: Will hold series for now evaluate for discharge over the next few days evaluate consideration of outpatient ECT 06/07: increase in unit acuity stressful for pt. feeling relatively well, opts not to wait until next week to discharge but rather to leave tomorrow. planning for F/U for maintenance ECT next saturday. meds reviewed, reconciled, prescribed. Time Spent with Patient Time attestation: Total time managing care of this patient today ____ minutes. Time spent: Greater than 30 minutes Discharge Plan Discharge Anticipated Discharge Date/Time: 06/08/23 11:00 Patient Disposition: Home, Self-Care Discharge Diagnosis: Major Depressive Disorder with Psychotic Features Referrals: Physician,Nathalie J [Primary Care Provider] - 1 Week Discharge Medications: Continued multivitamin Tablet 1 tab PO DAILY metformin 500 mg Tablet 500 mg PO BIDWMEAL atorvastatin 20 mg Tablet 20 mg PO DAILY citalopram 20 mg Tablet 20 mg PO DAILY lisinopril 10 mg Tablet 10 mg PO DAILY cholecalciferol (vitamin D3) 25 mcg (1,000 unit) Tablet 25 mcg PO DAILY olanzapine 7.5 mg Tablet 7.5 mg PO BEDTIME 30 Days Qty: 30 0RF bupropion HCl 150 mg Tablet Extended Release 24 Hr 150 mg PO QAM 30 Days Qty: 30 0RF Discontinued olanzapine 2.5 mg Tablet 2.5 mg PO DAILY trazodone 100 mg Tablet 100 mg PO BEDTIME Discharge Orders: Discharge Order (Routine); Ordered 06/08/23 Ordered By: Fredrick Andrade Diet: Diabetic diet Activity on Discharge: As tolerated Stand Alone Forms: Patient Portal Discharge page Care Plan Goals: remain safe and stable in the outpatient treatment setting Health Concerns: Hypertension Diabetes Mellitus Plan of Treatment: take medications as prescribed, attend maintenance ECT sessions as scheduled Assessment: not at imminent risk of harm to self or others
[2023-06-07 20:05] VITALS: BP 155/72; PULSE 88; RESP 16; TEMP 36.6; O2SAT 96
[2023-06-07] MEDS: OLANZapine 7.5 MG TABLET PO (20:23)
[2023-06-08 08:00] VITALS: BP 131/69; PULSE 86; RESP 17; TEMP 36.1; O2SAT 96
[2023-06-08] MEDS: Escitalopram Oxalate 10 MG TABLET PO (08:01)
[2023-06-08 08:02] LABS: Glucose, Whole Blood 197 mg/dL (60-115)
[2023-06-08] MEDS: metFORMIN HCl 500 MG TABLET PO (08:02)
[2023-06-08] MEDS: Thiamine HCL 100 MG TABLET PO (08:02)
[2023-06-08] MEDS: lisinopriL 10 MG TABLET PO (08:02)
[2023-06-08] MEDS: Multivitamin TABLET 1 TAB PO (08:02)
[2023-06-08] MEDS: Atorvastatin Calcium 20 MG TABLET PO (08:03)
[2023-06-08] MEDS: Folic Acid 1 MG TABLET PO (08:03)
[2023-06-08] MEDS: Cholecalciferol (Vitamin D3) 25 MCG TABLET PO (08:03)
[2023-06-08] MEDS: buPROPion HCl XL 150 MG TAB.ER.24H PO (08:03)
[2023-06-08 09:15] LABS: Creatinine Clr Calc Pharmacy 86.7; Estimated Glomerular Filt Rate > 60
== END 2023-06-08 10:55 | disposition home or self-care (01) | DRG 885 ==
PROVIDERS: Physician Assistant; Psychiatry & Neurology Psychiatry; Admitting Provider Psychiatry & Neurology Psychiatry; Visit Provider Psychiatry & Neurology Psychiatry
PROC: GZB4ZZZ Other Electroconvulsive Therapy (ICD-10-PCS; CPT 90870; principal; 2023-05-20 08:00)
DX: F32.3 Major depressive disorder, single episode, severe with psychotic features (principal); F10.90 Alcohol use, unspecified, uncomplicated; E78.5 Hyperlipidemia, unspecified; I10 Essential (primary) hypertension; I95.1 Orthostatic hypotension; E11.9 Type 2 diabetes mellitus without complications; Z87.891 Personal history of nicotine dependence; Z79.84 Long term (current) use of oral hypoglycemic drugs; Z79.899 Other long term (current) drug therapy
CPT/HCPCS: 36415; 80048; 80053; 80061; 81003; 82565; 82607; 82746; 82947; 84443; 85025; 90870; 93005; J0330; J1885; J2405

== ENCOUNTER → 2023-05-17 15:39 | Outpatient (BNV) | payer MEDICARE, SELFPAY | PROVIDERS: Admitting Provider Psychiatry & Neurology Psychiatry; Visit Provider Psychiatry & Neurology Psychiatry | DX: F33.2 Major depressive disorder, recurrent severe without psychotic features (principal) | CPT/HCPCS: 90792; 90870; 99231; 99239 ==

== ENCOUNTER → 2023-05-17 15:39 | Outpatient (BNV) | payer MEDICARE, SELFPAY | PROVIDERS: Admitting Provider Psychiatry & Neurology Psychiatry; Visit Provider Psychiatry & Neurology Psychiatry | DX: F32.3 Major depressive disorder, single episode, severe with psychotic features (principal) | CPT/HCPCS: 90870; 99231; 99232; 99499 ==

== ENCOUNTER → 2023-05-17 15:39 | Outpatient (BNV) | payer MEDICARE, SELFPAY | PROVIDERS: Admitting Provider Psychiatry & Neurology Psychiatry; Visit Provider Physician Assistant | DX: I95.1 Orthostatic hypotension (principal) | CPT/HCPCS: 99222; 99499 ==

== ENCOUNTER 2023-06-18 15:21 | Outpatient (AMB) | payer MEDICARE, SELFPAY ==
--- NOTE | 2023-06-18 15:24 | A.OFFPSYCH_ITS ---
Intake Intake Visit Reasons: depression Allergies Penicillins [PENICILLINS] Allergy (Unknown, Verified 05/17/23 22:12) rash Medication List - Last Reconciled 07/08/23 by Juice Garcia MD atorvastatin 20 mg PO DAILY bupropion HCl 150 mg PO QAM 30 days cholecalciferol (vitamin D3) 25 mcg PO DAILY citalopram 20 mg PO DAILY lisinopril 10 mg PO DAILY metformin 500 mg PO BIDWMEAL multivitamin 1 tab PO DAILY olanzapine 7.5 mg PO BEDTIME 30 days HPI- Psychiatric Chief Complaint: depression Intake Note: Follow-up from inpatient treatment has not been coming to outpatient ECT appointment HPI Narrative: Patient is a 72-year-old male discharge recently from 3 the inpatient psychiatric unit after a course of ECT. The patient has not followed up with outpatient ECT treatments he has been depressed withdrawn intermittently hopeless helpless flat denied any thoughts of self-harm has not yet followed up with Dr. Mayo. Patient not stable to return to work the patient has remained on Wellbutrin 150 mg citalopram and olanzapine at bedtime Past Psychiatric History: severe major depression with psychosis. He CT in 2018 successful. Current psychiatrist is Dr. Mayo. No history of suicide attempts Mental Status Exam Mental Status Exam Patient Appearance: Well Grooomed Patient Orientation: Person, Place, Time and Situation Level of Consciousness: Awake and Appropriate Patient Behavior: Appropriate and Guarded Mood Description: Depressed and Blunted Affect Description: Appropriate and Constricted Patient Cognition Impaired: No Ability to Follow Directions: Good Speech Pattern: Clear Memory Description: Intact Hallucinations: None Delusions: Not Present Thought Process: Intact and Goal Oriented Thought Content: positive for Goal Oriented, positive for Preoccupation, negative for Suicidal Ideation or negative for Homicidal Ideation Depressive Symptoms: Increased Anxiety, Increased Irritability, Hopelessness, Increased Fatigue, Loss of Energy and Difficulty Concentrating Judgement: Fair Judgement and Insight: Impaired memory from time during the hospitalization he is withdrawn and flat not able to return to work somewhat hopeless helpless fearful regarding ECT was able to take in information Assessment and Plan Assessment & Plan (1) Major depression with psychotic features: Status: Acute Code(s): F32.3 - Major depressive disorder, single episode, severe with psychotic features Plan Patient not actively psychotic at this time did respond well to ECT and since discharge has gone somewhat backwards. His withdrawn difficulty leaving the house spending lot of time in bed denies active thoughts of self-harm. Case reviewed with patient is female partner whom he lives and a daughter would benefit from medication evaluation with Dr. Mayo would benefit from restar ting ECT risks benefits alternatives reviewed patient had been quite significantly depressed not eating or drinking for period of time when inpatient thoughts that he would be better off denies any plan or intent to her significant thought that he would be better off this time agreeable to restarting ECT or at least will consider it questions answered Counseling and coordination of Care Diagnosis and Prognosis Counseling: Impact of diagnosis on life functions, Problematic behaviors secondary to diagnosis and Adequacy of current interventions Details: I spent [45] minutes reviewing the record, seeing the patient and documenting in the medical record. Counseling provided to the patient/caregiver as outlined below. Addressed patient/caregiver concerns regarding current medication regime including effective adherence. Addressed patient/caregiver concerns regarding diagnosis and prognosis including accuracy of diagnosis, prognosis over time, impact of diagnosis. Addressed patient/caregiver concerns regarding impact of recent stressors. [facility] Medical History HLD (hyperlipidemia) HTN (hypertension) Non-insulin dependent type 2 diabetes mellitus Social History Household Members: Significant Other Housing: Apartment Do you presently have visiting nurse or other home services: No Patient Tobacco Use Status: Former Tobacco user Quit Date: 50 years ago Tobacco use type: Cigarette e-Cigarette/Vaping Use: Never Used Second Hand Smoke Exposure: No Substance Use Type: Marijuana service: No Sexual orientation: Straight/Heterosexual Social History: lives with his girlfriend in [place] for the last 4 years. Has 2 adult children. [employer] outreach counselor. Substance History: denied Coding Level of Care Code Est Pt Level 4 (61777) Diagnoses Major depression with psychotic features F32.3
== END 2023-06-18 16:47 | disposition home or self-care (01) ==
LOC: HO.HOP 15:21
PROVIDERS: Visit Provider Psychiatry & Neurology Psychiatry
DX: F32.3 Major depressive disorder, single episode, severe with psychotic features (principal)
CPT/HCPCS: 99214

== ENCOUNTER → 2023-06-18 15:21 | Outpatient (BNVA) | payer MEDICARE, SELFPAY | PROVIDERS: Visit Provider Psychiatry & Neurology Psychiatry | DX: F32.3 Major depressive disorder, single episode, severe with psychotic features (principal) | CPT/HCPCS: 99212 ==

== ENCOUNTER 2023-06-21 07:41 | Day surgery (SDC) | payer MEDICARE, SELFPAY ==
[2023-06-21] VITALS (7 sets, daily range): BP systolic 99–188; BP diastolic 67–111; PULSE 66–101; RESP 16–20; TEMP 36.2–36.9; O2SAT 96–100; BMI 23.8
--- NOTE | 2023-06-21 07:49 | MHC.SHP ---
Pre-Procedural Eval Section A Date of Service: 06/21/23 Changes since office visit: Yes Patient answered all questions; No Cold of Flu in the past 2 weeks, No New Medical Problems and No Changes in Medication The History & Physical has been completed within 30 days and I have reviewed it.: Yes Section B Chief Complaint: Major depressive disorder, recurrent, severe with Allergies: Allergies Allergy/AdvReac Type Severity Reaction Status Date / Time Penicillins [PENICILLINS] Allergy Unknown rash Verified 05/17/23 22:12 Plan I have reviewed the history and physical and performed a pertinent physical examination on my patient. No changes have occurred unless specified. Time Spent With Patient Time: Total time managing care of this patient today ____ minutes.
--- NOTE | 2023-06-21 08:33 | HO.ANESPROP2 ---
[facility] Active Problems Active Problems: All Active Problems (Updated 06/16/23 @ 00:03 by Case Carlislecourtney) Major depression with psychotic features (Acute) Past Medical History Medical History HLD (hyperlipidemia) HTN (hypertension) Non-insulin dependent type 2 diabetes mellitus Family History Family history of problems with anesthesia: No Surgical History History of Problems with Anesthesia: No Social History Social History Household Members: Significant Other Housing: Apartment Do you presently have visiting nurse or other home services: No Patient Tobacco Use Status: Former Tobacco user Quit Date: 50 years ago Tobacco use type: Cigarette e-Cigarette/Vaping Use: Never Used Second Hand Smoke Exposure: No Substance Use Type: Marijuana Advance Directives: No Advance Directives Information Provided: Yes service: No Sexual orientation: Straight/Heterosexual Meds Allergies Allergy/AdvReac Type Severity Reaction Status Date / Time Penicillins [PENICILLINS] Allergy Unknown rash Verified 05/17/23 22:12 Home Medications Medication Instructions Recorded Confirmed Last Taken Type atorvastatin 20 mg tablet 20 mg PO DAILY 05/17/23 05/17/23 05/17/23 09:16 History cholecalciferol (vitamin D3) 25 25 mcg PO DAILY 05/17/23 05/17/23 05/17/23 09:16 History mcg (1,000 unit) tablet citalopram 20 mg tablet 20 mg PO DAILY 05/17/23 05/17/23 05/17/23 09:16 History lisinopril 10 mg tablet 10 mg PO DAILY 05/17/23 05/17/23 05/17/23 09:16 History metformin 500 mg tablet 500 mg PO BIDWMEAL 05/17/23 05/17/23 05/17/23 09:16 History multivitamin 1 tab PO DAILY 05/17/23 05/17/23 05/17/23 09:16 History Exam Height,Weight and Vital Signs: Height 5 ft 9 in Weight 73.028 kg Last Vital Signs Temp 97.2 F 06/21/23 08:25 Pulse 101 H 06/21/23 08:25 Resp 20 06/21/23 08:25 BP 188/82 H 06/21/23 08:25 Pulse Ox 100 06/21/23 08:25 O2 Del Method Room Air 06/21/23 08:25 Airway Mallampati Class: II TM Dist: >3cm Neck ROM: Full Partial: Upper and Lower Heart: rrr Lungs: cta Assessment and Plan Assessment Anesthesia Assessment: Anesthesia Plan Discussed and Chart Reviewed Final Anesthetic Review Family History of Problems with Anesthesia: No History of Problems with Anesthesia: No NPO: Yes ASA Class: III Final Preanesthetic Review: No Changes in Pt Med Stat, Meds/Allgs Chart Reviewed and Consent Obtained/Reviewed Patient Risk: Intermediate Procedure Risk: Intermediate Anesthetic Plan Anesthetic Plan: GA Disposition: Standard PACU
[2023-06-21 10:05] LABS: Glucose, Whole Blood 110 mg/dL (60-115)
--- NOTE | 2023-06-21 10:20 | P.PCN_ITS ---
ECT Procedure Note Diagnosis/Treatment Date of Service: 06/21/23 Diagnosis: Major Depressive Disorder Previous ECT Date: 06/05/23 Current Treatment Number: 9 Treatment: Series Interval Clinical Notes: Patient has had an increase in depressive symptoms missed his 1st scheduled ECT outpatient. He was seen and outpatient visit he is anxious depressed ruminating difficulty with motivation mood has had a relapse in symptoms denies SI no psychosis urged to contact his outpatient psychiatrist Dr. Mayo for follow- up Time: Total time managing care of this patient today ____ minutes. ECT Settings Device: THYMATRON DGx Electrode Placement: Bitemporal Program/Pulse Width: 0.25 Energy Percent: 100 Seizure Duration By EEG (in seconds): 68 Medications Administration General Anesthetic: Etomidate (14) Muscle Relaxant: Succinylcholine (100) Ancillary Medications Analgesics: Torodol - Pre ECT Anti-emetics: Zofran - Pre ECT Miscillaneous Medications: Propofol (30 plus 30) Airway Management Airway Management: Bag Mask Ventilation Treatment Recommendations No Changes Recommended: No change Notes: Patient encouraged to have a continuation ECT next week Pt Tolerated Procedure w/o Issue: Yes
[2023-06-21] MEDS: clonazePAM 0.5 MG TABLET PO (10:54)
== END 2023-06-21 11:25 | disposition home or self-care (01) ==
PROVIDERS: Visit Provider Psychiatry & Neurology Psychiatry
PROC: (CPT 90870; principal; 2023-06-21 15:00)
DX: F33.3 Major depressive disorder, recurrent, severe with psychotic symptoms (principal); F39 Unspecified mood [affective] disorder; I10 Essential (primary) hypertension; E78.5 Hyperlipidemia, unspecified; E11.9 Type 2 diabetes mellitus without complications; Z79.84 Long term (current) use of oral hypoglycemic drugs; Z79.899 Other long term (current) drug therapy; Z88.0 Allergy status to penicillin; F12.90 Cannabis use, unspecified, uncomplicated; Z87.891 Personal history of nicotine dependence
CPT/HCPCS: 82947; 90870; J0330; J1885; J2405; J2704

== ENCOUNTER → 2023-06-21 07:41 | Outpatient (BNV) | payer MEDICARE, SELFPAY | PROVIDERS: Visit Provider Psychiatry & Neurology Psychiatry | DX: F33.3 Major depressive disorder, recurrent, severe with psychotic symptoms (principal) | CPT/HCPCS: 90870 ==

== ENCOUNTER 2023-07-08 10:56 | Outpatient (AMB) | payer MEDICARE, SELFPAY ==
--- NOTE | 2023-07-08 11:51 | A.OFFPSYCH_ITS ---
Intake Intake Visit Reasons: depression Allergies Penicillins [PENICILLINS] Allergy (Unknown, Verified 05/17/23 22:12) rash HPI- Psychiatric Chief Complaint: depression HPI Narrative: Pt seen with 2 daughters and partner. Pt has been depressed withdrawn phq 9 21 denies any active thoughts of self harm has severe anxiety prior to outpt ect has missed scheduled ect appts and has gone backwards case also discussed with dr claire smith wellbutrin was inc back to 300 mg helpless hopeless difficulty fx concentrating fearful of ect has been withdrawn depressed hopeless helpless Past Psychiatric History: severe major depression with psychosis. He CT in 2018 successful. Current psychiatrist is Dr. Mayo. No history of suicide attempts Mental Status Exam Mental Status Exam Patient Appearance: Well Grooomed Patient Orientation: Person, Place, Time and Situation Level of Consciousness: Awake and Appropriate Patient Behavior: Appropriate and Guarded Mood Description: Depressed and Blunted Affect Description: Appropriate and Constricted Patient Cognition Impaired: No Ability to Follow Directions: Good Speech Pattern: Clear Memory Description: Intact Hallucinations: None Delusions: Not Present Thought Process: Intact and Goal Oriented Thought Content: positive for Goal Oriented, positive for Preoccupation, negative for Suicidal Ideation or negative for Homicidal Ideation Depressive Symptoms: Increased Anxiety, Increased Irritability, Hopelessness, Increased Fatigue, Loss of Energy and Difficulty Concentrating Judgement: Fair Judgement and Insight: pt flat dysphoric some poverty of cf content williing to try ect again reviewed fear related issues Assessment and Plan Assessment & Plan (1) Major depression with psychotic features: Status: Acute Code(s): F32.3 - Major depressive disorder, single episode, severe with psychotic features Plan clonidine 0.1 mg prior to ect for severe anxiety can also try alprazolam 0.125- 0.25 prior to ect if needed cont ect try maintenance discussed option of tms spravato php as alternatives risks benefis of ect vs not doing ect Medications: New alprazolam 0.25 mg PO DAILY 7 tabs 0RF prior to procedure clonidine HCl 0.05 - 0.1 mg (0.5 - 1 x 0.1 mg) PO DAILY PRN 14 tabs 0RF anxiety Counseling and coordination of Care Pt. Self Management counseling: Breathing Details-Self Mgmt counseling: strongly urged pt to see Dr. Mayo in follow-up his primary psychiatrist and consider inpatient readmission if needed denies active self-harm Medication management counseling: Effectiveness, Side effects and Dosing range Diagnosis and Prognosis Counseling: Impact of diagnosis on life functions and Adequacy of current interventions Details: I spent [38] minutes reviewing the record, seeing the patient and documenting in the medical record. Counseling provided to the patient/caregiver as outlined below. Addressed patient/caregiver concerns regarding current medication regime including effective adherence. Addressed patient/caregiver concerns regarding diagnosis and prognosis including accuracy of diagnosis, prognosis over time, impact of diagnosis. Addressed patient/caregiver concerns regarding impact of recent stressors. [facility] Medical History Routine medical exam HLD (hyperlipidemia) HTN (hypertension) Non-insulin dependent type 2 diabetes mellitus Social History Household Members: Significant Other Housing: Apartment Do you presently have visiting nurse or other home services: No Patient Tobacco Use Status: Never used Tobacco Tobacco use type: Cigarette e-Cigarette/Vaping Use: Never Used Second Hand Smoke Exposure: No Substance Use Type: Marijuana service: No Sexual orientation: Straight/Heterosexual Social History: lives with his girlfriend in [place] for the last 4 years. Has 2 adult children. [employer] outreach counselor. Substance History: denied Coding Level of Care Code Est Pt Level 4 (32031) Diagnoses Major depression with psychotic features F32.3
== END 2023-07-08 16:51 | disposition home or self-care (01) ==
LOC: HO.HOP 10:56
PROVIDERS: Visit Provider Psychiatry & Neurology Psychiatry
DX: F32.3 Major depressive disorder, single episode, severe with psychotic features (principal)
CPT/HCPCS: 99214

== ENCOUNTER → 2023-07-08 10:56 | Outpatient (BNVA) | payer MEDICARE, SELFPAY | PROVIDERS: Visit Provider Psychiatry & Neurology Psychiatry | DX: F32.3 Major depressive disorder, single episode, severe with psychotic features (principal) | CPT/HCPCS: 99212 ==

== ENCOUNTER 2023-07-12 05:59 | Day surgery (SDC) | payer MEDICARE, SELFPAY ==
[2023-07-12] VITALS (7 sets, daily range): BP systolic 119–195; BP diastolic 73–93; PULSE 65–94; RESP 15–18; TEMP 36.3–36.4; O2SAT 95–100; BMI 23.0
[2023-07-12 06:48] LABS: Glucose, Whole Blood 157 mg/dL (60-115)
--- NOTE | 2023-07-12 07:10 | P.CONAN_ITS ---
[facility] Active Problems Active Problems: All Active Problems (Updated 06/16/23 @ 00:03 by Case Carlislecourtney) Major depression with psychotic features (Acute) Past Medical History Medical History HLD (hyperlipidemia) HTN (hypertension) Non-insulin dependent type 2 diabetes mellitus Family History Family history of problems with anesthesia: No Surgical History History of Problems with Anesthesia: No Social History Social History Household Members: Significant Other Housing: Apartment Do you presently have visiting nurse or other home services: No Patient Tobacco Use Status: Former Tobacco user Quit Date: 50 years ago Tobacco use type: Cigarette e-Cigarette/Vaping Use: Never Used Second Hand Smoke Exposure: No Substance Use Type: Marijuana Advance Directives: No Advance Directives Information Provided: Yes service: No Sexual orientation: Straight/Heterosexual Meds Allergies Allergy/AdvReac Type Severity Reaction Status Date / Time Penicillins [PENICILLINS] Allergy Unknown rash Verified 05/17/23 22:12 Home Medications Medication Instructions Recorded Confirmed Last Taken Type atorvastatin 20 mg tablet 20 mg PO DAILY 05/17/23 07/08/23 05/17/23 09:16 History cholecalciferol (vitamin D3) 25 25 mcg PO DAILY 05/17/23 07/08/23 05/17/23 09:16 History mcg (1,000 unit) tablet citalopram 20 mg tablet 20 mg PO DAILY 05/17/23 07/08/23 05/17/23 09:16 History lisinopril 10 mg tablet 10 mg PO DAILY 05/17/23 07/08/23 05/17/23 09:16 History metformin 500 mg tablet 500 mg PO BIDWMEAL 05/17/23 07/08/23 05/17/23 09:16 History multivitamin 1 tab PO DAILY 05/17/23 07/08/23 05/17/23 09:16 History Exam Height,Weight and Vital Signs: Height 5 ft 10 in Weight 72.575 kg Last Vital Signs Temp 97.5 F 07/12/23 06:45 Pulse 94 07/12/23 06:45 Resp 17 07/12/23 06:45 BP 195/91 H 07/12/23 06:45 Pulse Ox 100 07/12/23 06:45 O2 Del Method Room Air 07/12/23 06:45 Pertinent Lab Results Pertinent Lab Results: Laboratory Tests 07/12/23 06:45 POC Glucose 157 H Airway Mallampati Class: II TM Dist: >3cm Neck ROM: Full Heart: rrr Lungs: cta Assessment and Plan Assessment Anesthesia Assessment: Anesthesia Plan Discussed and Chart Reviewed Final Anesthetic Review Family History of Problems with Anesthesia: No History of Problems with Anesthesia: No NPO: Yes ASA Class: III Final Preanesthetic Review: No Changes in Pt Med Stat, Meds/Allgs Chart Reviewed and Consent Obtained/Reviewed Patient Risk: Intermediate Procedure Risk: Intermediate Anesthetic Plan Anesthetic Plan: GA Disposition: Standard PACU
--- NOTE | 2023-07-12 07:39 | MHC.SHP ---
Pre-Procedural Eval Section A Date of Service: 07/12/23 Changes since office visit: Yes Patient answered all questions; No Cold of Flu in the past 2 weeks, No New Medical Problems and No Changes in Medication The History & Physical has been completed within 30 days and I have reviewed it.: No Section B Chief Complaint: depression Relevant Family History (Specify if Yes): No Relevant Social History: None Present Medications: see Short Stay Collaborative assessment Medical History: No relevant PMH Allergies: Allergies Allergy/AdvReac Type Severity Reaction Status Date / Time Penicillins [PENICILLINS] Allergy Unknown rash Verified 05/17/23 22:12 Review of Systems Sugical H&P ROS: Negative: Cardiovascular, Respiratory and Neurological and Yes, Specify: Constitution and Psychiatric (depressed ruminating) Exam Surgical H&P Exam: Normal: Heart and Normal: Lungs Plan Diagnosis/Plan: Unchanged I have reviewed the history and physical and performed a pertinent physical examination on my patient. No changes have occurred unless specified. Time Spent With Patient Time: Total time managing care of this patient today _30___ minutes.
--- NOTE | 2023-07-12 08:12 | MHC.SHP ---
Pre-Procedural Eval Section A Date of Service: 07/12/23 Section B Chief Complaint: depression Details of Present Illness: recurrent depression severe has avoided ect and tx Medical History: Significant History (htn) Allergies: Allergies Allergy/AdvReac Type Severity Reaction Status Date / Time Penicillins [PENICILLINS] Allergy Unknown rash Verified 05/17/23 22:12 Review of Systems Sugical H&P ROS: Negative: Cardiovascular and Respiratory and Yes, Specify: Constitution (fatigue) and Psychiatric (depressed withdrawn) Exam Surgical H&P Exam: Normal: Heart, Normal: Lungs and Normal: Extremities Plan Diagnosis/Plan: Unchanged I have reviewed the history and physical and performed a pertinent physical examination on my patient. No changes have occurred unless specified. Time Spent With Patient Time: Total time managing care of this patient today ____ minutes.
--- NOTE | 2023-07-12 08:12 | HO.ECTPROC ---
ECT Procedure Note Diagnosis/Treatment Date of Service: 07/12/23 Diagnosis: Major Depressive Disorder Interval Clinical Notes: pt has been severely depressed did not follow thru on initial series seen recently in the office agreed to ect has severe anxiety had htn on arrival and difficulty post opp difficulty responding tometoprolol 2 plus 1 and later nitroglycerin 100 plus 50 Time: Total time managing care of this patient today ____ minutes. ECT Settings Device: THYMATRON DGx Electrode Placement: Bitemporal Program/Pulse Width: 0.25 Energy Percent: 100 Medications Administration General Anesthetic: Etomidate (14) Muscle Relaxant: Succinylcholine (100) Ancillary Medications Miscillaneous Medications: Propofol (90) Airway Management Airway Management: Bag Mask Ventilation Treatment Recommendations No Changes Recommended: No change Notes: Patient to see his primary care physician prior to next treatment most likely needs additional stabilization besides lisinopril may need to decrease Wellbutrin case reviewed with patient's partner to take antihypertensives prior to leaving home
== END 2023-07-12 09:35 | disposition home or self-care (01) ==
PROVIDERS: Visit Provider Psychiatry & Neurology Psychiatry
PROC: (CPT 90870; principal; 2023-07-12 08:00)
DX: F33.3 Major depressive disorder, recurrent, severe with psychotic symptoms (principal); F41.8 Other specified anxiety disorders; I10 Essential (primary) hypertension; E78.5 Hyperlipidemia, unspecified; E11.9 Type 2 diabetes mellitus without complications; Z79.84 Long term (current) use of oral hypoglycemic drugs; Z79.899 Other long term (current) drug therapy; Z88.0 Allergy status to penicillin; Z87.891 Personal history of nicotine dependence
CPT/HCPCS: 82947; 90870; J0330; J1805; J1885; J2250; J2305; J2405; J2704

== ENCOUNTER → 2023-07-12 05:59 | Outpatient (BNV) | payer MEDICARE, SELFPAY | PROVIDERS: Visit Provider Psychiatry & Neurology Psychiatry | DX: F33.3 Major depressive disorder, recurrent, severe with psychotic symptoms (principal) | CPT/HCPCS: 90870 ==

== ENCOUNTER 2023-07-19 07:06 | Day surgery (SDC) | payer MEDICARE, SELFPAY ==
[2023-07-19 08:23] LABS: Glucose, Whole Blood 123 mg/dL (60-115)
[2023-07-19 08:25] VITALS: BP 175/78; PULSE 83; RESP 18; TEMP 36.9; O2SAT 98; BMI 23.6
--- NOTE | 2023-07-19 08:41 | HO.ANESPROP2 ---
[facility] Active Problems Active Problems: All Active Problems (Updated 06/16/23 @ 00:03 by Case Carlislecourtney) Major depression with psychotic features (Acute) Past Medical History Medical History HLD (hyperlipidemia) HTN (hypertension) Non-insulin dependent type 2 diabetes mellitus Family History Family history of problems with anesthesia: No Surgical History History of Problems with Anesthesia: No Social History Social History Household Members: Significant Other Housing: Apartment Do you presently have visiting nurse or other home services: No Patient Tobacco Use Status: Former Tobacco user Quit Date: 50 years ago Tobacco use type: Cigarette e-Cigarette/Vaping Use: Never Used Second Hand Smoke Exposure: No Substance Use Type: Marijuana Advance Directives: No Advance Directives Information Provided: Yes service: No Sexual orientation: Straight/Heterosexual Meds Allergies Allergy/AdvReac Type Severity Reaction Status Date / Time Penicillins [PENICILLINS] Allergy Unknown rash Verified 05/17/23 22:12 Home Medications Medication Instructions Recorded Confirmed Last Taken Type atorvastatin 20 mg tablet 20 mg PO DAILY 05/17/23 07/08/23 05/17/23 09:16 History cholecalciferol (vitamin D3) 25 25 mcg PO DAILY 05/17/23 07/08/23 05/17/23 09:16 History mcg (1,000 unit) tablet citalopram 20 mg tablet 20 mg PO DAILY 05/17/23 07/08/23 05/17/23 09:16 History lisinopril 10 mg tablet 10 mg PO DAILY 05/17/23 07/08/23 05/17/23 09:16 History metformin 500 mg tablet 500 mg PO BIDWMEAL 05/17/23 07/08/23 05/17/23 09:16 History multivitamin 1 tab PO DAILY 05/17/23 07/08/23 05/17/23 09:16 History Exam Height,Weight and Vital Signs: Height 5 ft 9 in Weight 72.575 kg Last Vital Signs Temp 98.4 F 07/19/23 08:25 Pulse 83 07/19/23 08:25 Resp 18 07/19/23 08:25 BP 175/78 H 07/19/23 08:25 Pulse Ox 98 07/19/23 08:25 O2 Del Method Room Air 07/19/23 08:25 Pertinent Lab Results Pertinent Lab Results: Laboratory Tests 07/19/23 08:20 POC Glucose 123 H Airway Mallampati Class: II TM Dist: >3cm Neck ROM: Full Partial: Upper Heart: rrr Lungs: cta Assessment and Plan Final Anesthetic Review Family History of Problems with Anesthesia: No History of Problems with Anesthesia: No NPO: Yes ASA Class: III Final Preanesthetic Review: No Changes in Pt Med Stat, Meds/Allgs Chart Reviewed and Consent Obtained/Reviewed Patient Risk: Intermediate Procedure Risk: Intermediate Anesthetic Plan Anesthetic Plan: GA Disposition: Standard PACU
--- NOTE | 2023-07-19 10:13 | MHC.SHP ---
Pre-Procedural Eval Section A Date of Service: 07/19/23 The patient is an INPATIENT: No Changes since office visit: No Cold of Flu in the past 2 weeks, No New Medical Problems, No Changes in Medication and No Patient answered all questions The History & Physical has been completed within 30 days and I have reviewed it.: Yes Section B Chief Complaint: depression Allergies: Allergies Allergy/AdvReac Type Severity Reaction Status Date / Time Penicillins [PENICILLINS] Allergy Unknown rash Verified 05/17/23 22:12 Plan I have reviewed the history and physical and performed a pertinent physical examination on my patient. No changes have occurred unless specified. Time Spent With Patient Time: Total time managing care of this patient today ____ minutes.
--- NOTE | 2023-07-19 10:39 | HO.ECTPROC ---
ECT Procedure Note Diagnosis/Treatment Date of Service: 07/19/23 Diagnosis: Major Depressive Disorder Previous ECT Date: 07/12/23 Interval Clinical Notes: The patient had been more dysphoric in the last weeks, anxious. No side effects with previous ECT. Today, we did the procedure as usual, no complications, this time we didn't need Propofol or any other med for bp. Woke up without major problems. Time: Total time managing care of this patient today __30__ minutes. ECT Settings Device: THYMATRON DGx Electrode Placement: Bitemporal Program/Pulse Width: 0.50 Energy Percent: 100 Seizure Duration By EEG (in seconds): 74 Medications Administration General Anesthetic: Etomidate (14) Muscle Relaxant: Succinylcholine (100) Ancillary Medications Analgesics: Torodol - Pre ECT Anti-emetics: Zofran - Pre ECT Airway Management Airway Management: Bag Mask Ventilation Treatment Recommendations No Changes Recommended: No change Pt Tolerated Procedure w/o Issue: Yes
[2023-07-19 10:40] VITALS: BP 121/69; PULSE 69; RESP 16; TEMP 37; O2SAT 100
[2023-07-19 10:45] VITALS: BP 180/80; PULSE 88; RESP 20; O2SAT 99
[2023-07-19 10:50] VITALS: BP 154/92; PULSE 89; RESP 18; O2SAT 94
[2023-07-19 10:55] VITALS: PULSE 91; RESP 18; O2SAT 96
[2023-07-19] MEDS: LORazepam 2 MG/ML VIAL 1 MG IVPUSH (11:03)
[2023-07-19 11:12] VITALS: BP 145/85; PULSE 85; RESP 18; TEMP 37; O2SAT 97
== END 2023-07-19 11:45 | disposition home or self-care (01) ==
PROVIDERS: Visit Provider Psychiatry & Neurology Psychiatry
PROC: (CPT 90870; principal; 2023-07-19 11:00)
DX: F33.3 Major depressive disorder, recurrent, severe with psychotic symptoms (principal); F41.8 Other specified anxiety disorders; I10 Essential (primary) hypertension; E78.5 Hyperlipidemia, unspecified; E11.9 Type 2 diabetes mellitus without complications; Z79.84 Long term (current) use of oral hypoglycemic drugs; Z79.899 Other long term (current) drug therapy; Z88.0 Allergy status to penicillin; Z87.891 Personal history of nicotine dependence
CPT/HCPCS: 82947; 90870; J0330; J1885; J2060; J2305; J2405; J2704

== ENCOUNTER → 2023-07-19 07:06 | Outpatient (BNV) | payer MEDICARE, SELFPAY | PROVIDERS: Visit Provider Psychiatry & Neurology Psychiatry | DX: F33.3 Major depressive disorder, recurrent, severe with psychotic symptoms (principal) | CPT/HCPCS: 90870 ==

== ENCOUNTER 2023-07-26 06:43 | Day surgery (SDC) | payer MEDICARE, SELFPAY ==
[2023-07-26] VITALS (7 sets, daily range): BP systolic 115–161; BP diastolic 69–89; PULSE 69–99; RESP 12–20; TEMP 36.1–36.2; O2SAT 93–100; BMI 24.2
[2023-07-26 06:53] LABS: Glucose, Whole Blood 116 mg/dL (60-115)
--- NOTE | 2023-07-26 07:19 | MHC.SHP ---
Pre-Procedural Eval Section A Date of Service: 07/26/23 Changes since office visit: No Cold of Flu in the past 2 weeks, No New Medical Problems, No Changes in Medication and No Patient answered all questions The History & Physical has been completed within 30 days and I have reviewed it.: Yes Section B Chief Complaint: Major depressive disorder, recurrent, severe with Details of Present Illness: recurrentdepression Allergies: Allergies Allergy/AdvReac Type Severity Reaction Status Date / Time Penicillins [PENICILLINS] Allergy Unknown rash Verified 05/17/23 22:12 Review of Systems Sugical H&P ROS: Negative: Cardiovascular and Respiratory and Yes, Specify: Psychiatric (depressed mood hopeless helpless) Exam Surgical H&P Exam: Normal: Heart and Normal: Lungs Exam Comment: severe depression anxiety Plan Diagnosis/Plan: Unchanged I have reviewed the history and physical and performed a pertinentPt hypertensive took clonidine at home physical examination on my patient. No changes have occurred unless specified. Time Spent With Patient Time: Total time managing care of this patient today ____ minutes.
--- NOTE | 2023-07-26 07:55 | HO.ECTPROC ---
ECT Procedure Note Diagnosis/Treatment Date of Service: 08/01/23 Diagnosis: Major Depressive Disorder Treatment: Other (continuation) Interval Clinical Notes: The patient is having continuation treatment he is a patient of Dr. Mayo he did well after series then had a lot of anxiety regarding continuing treatment has relapsed. Have met with patient his partner and daughters. Consideration could be given to rehospitalization if needed he states he can maintain his safety. Remains quite depressed and anxious he has had hypertension pre ECT. reportedly not at home He was given 6 mg IV metoprolol pre treatment he was significantly hypertensive pre and post treatment 212/102 with a pulse of 88 b I have also asked Dr. Mayo to manage the patient's psychiatric care more aggressively regarding any medication changes would benefit from going early in cue he did have brief run vent arrythmia for seconds might benefit from inpt will speak to cardiology Time: Total time managing care of this patient today _30___ minutes. ECT Settings Device: THYMATRON DGx Electrode Placement: Rt temporal/ Lt frontal Program/Pulse Width: 0.25 Seizure Duration By EEG (in seconds): 61 Medications Administration General Anesthetic: Etomidate (14) Muscle Relaxant: Succinylcholine (100) Ancillary Medications Miscillaneous Medications: Propofol (30 mg) and Midazolam (2 post) Airway Management Airway Management: Bag Mask Ventilation Treatment Recommendations Notes: will speak to cardiology re any recommendations pre tx Pt Tolerated Procedure w/o Issue: Yes
--- NOTE | 2023-07-26 08:02 | HO.ANESPROP2 ---
[facility] Active Problems Active Problems: All Active Problems (Updated 06/16/23 @ 00:03 by Case Carlislecourtney) Major depression with psychotic features (Acute) Past Medical History Medical History HLD (hyperlipidemia) HTN (hypertension) Non-insulin dependent type 2 diabetes mellitus Family History Family history of problems with anesthesia: No Surgical History History of Problems with Anesthesia: No Social History Social History Household Members: Significant Other Housing: Apartment Do you presently have visiting nurse or other home services: No Patient Tobacco Use Status: Former Tobacco user Quit Date: 50 years ago Tobacco use type: Cigarette e-Cigarette/Vaping Use: Never Used Second Hand Smoke Exposure: No Substance Use Type: Marijuana Advance Directives: No Advance Directives Information Provided: Yes service: No Sexual orientation: Straight/Heterosexual Meds Allergies Allergy/AdvReac Type Severity Reaction Status Date / Time Penicillins [PENICILLINS] Allergy Unknown rash Verified 05/17/23 22:12 Home Medications Medication Instructions Recorded Confirmed Last Taken Type atorvastatin 20 mg tablet 20 mg PO DAILY 05/17/23 07/08/23 05/17/23 09:16 History cholecalciferol (vitamin D3) 25 25 mcg PO DAILY 05/17/23 07/08/23 05/17/23 09:16 History mcg (1,000 unit) tablet citalopram 20 mg tablet 20 mg PO DAILY 05/17/23 07/08/23 05/17/23 09:16 History lisinopril 10 mg tablet 10 mg PO DAILY 05/17/23 07/08/23 05/17/23 09:16 History metformin 500 mg tablet 500 mg PO BIDWMEAL 05/17/23 07/08/23 05/17/23 09:16 History multivitamin 1 tab PO DAILY 05/17/23 07/08/23 05/17/23 09:16 History Exam Height,Weight and Vital Signs: Height 5 ft 9 in Weight 74.389 kg Last Vital Signs Temp 97 F 07/26/23 06:58 Pulse 99 07/26/23 06:58 Resp 20 07/26/23 06:58 Pulse Ox 100 07/26/23 06:58 O2 Del Method Room Air 07/26/23 06:58 Pertinent Lab Results Pertinent Lab Results: Laboratory Tests 07/26/23 06:50 POC Glucose 116 H Airway Mallampati Class: II TM Dist: >3cm Neck ROM: Full Heart: rrr Lungs: cta Assessment and Plan Assessment Anesthesia Assessment: Anesthesia Plan Discussed and Chart Reviewed Final Anesthetic Review Family History of Problems with Anesthesia: No History of Problems with Anesthesia: No NPO: Yes ASA Class: III Final Preanesthetic Review: No Changes in Pt Med Stat, Meds/Allgs Chart Reviewed and Consent Obtained/Reviewed Patient Risk: Intermediate Procedure Risk: Intermediate Anesthetic Plan Anesthetic Plan: GA Disposition: Standard PACU
== END 2023-07-26 09:29 | disposition home or self-care (01) ==
PROVIDERS: Visit Provider Psychiatry & Neurology Psychiatry
PROC: (CPT 90870; principal; 2023-07-26 08:00)
DX: I10 Essential (primary) hypertension (principal); F41.1 Generalized anxiety disorder; R07.89 Other chest pain; I49.3 Ventricular premature depolarization; E11.9 Type 2 diabetes mellitus without complications; E78.5 Hyperlipidemia, unspecified; Z79.84 Long term (current) use of oral hypoglycemic drugs; Z79.899 Other long term (current) drug therapy; F33.2 Major depressive disorder, recurrent severe without psychotic features
CPT/HCPCS: 82947; 90870; J0330; J1805; J1885; J2250; J2305; J2405; J2704

== ENCOUNTER → 2023-07-26 06:43 | Outpatient (BNV) | payer MEDICARE, SELFPAY | PROVIDERS: Visit Provider Psychiatry & Neurology Psychiatry | DX: F33.3 Major depressive disorder, recurrent, severe with psychotic symptoms (principal) | CPT/HCPCS: 90870 ==

== ENCOUNTER 2023-08-02 05:50 | Day surgery (SDC) | payer MEDICARE, SELFPAY ==
[2023-08-02] VITALS (10 sets, daily range): BP systolic 80–180; BP diastolic 50–86; PULSE 62–93; RESP 11–18; TEMP 36.2–36.8; O2SAT 94–98; BMI 23.6
[2023-08-02 06:37] LABS: Glucose, Whole Blood 136 mg/dL (60-115)
--- NOTE | 2023-08-02 06:48 | P.CONAN_ITS ---
[facility] Active Problems Active Problems: All Active Problems (Updated 06/16/23 @ 00:03 by Case Tuan) Major depression with psychotic features (Acute) Past Medical History Medical History Routine medical exam HLD (hyperlipidemia) HTN (hypertension) Non-insulin dependent type 2 diabetes mellitus Family History Family history of problems with anesthesia: No Surgical History History of Problems with Anesthesia: No Social History Social History Household Members: Significant Other Housing: Apartment Do you presently have visiting nurse or other home services: No Patient Tobacco Use Status: Never used Tobacco Tobacco use type: Cigarette e-Cigarette/Vaping Use: Never Used Second Hand Smoke Exposure: No Use of substances other than those prescribed or required for medical reasons: Yes Substance Use Type: Marijuana Are you DNR?: No Advance Directives: No Advance Directives Information Provided: Yes service: No Sexual orientation: Straight/Heterosexual Meds Allergies Allergy/AdvReac Type Severity Reaction Status Date / Time Penicillins [PENICILLINS] Allergy Unknown rash Verified 05/17/23 22:12 Home Medications Medication Instructions Recorded Confirmed Last Taken Type atorvastatin 20 mg tablet 20 mg PO DAILY 05/17/23 07/08/23 05/17/23 09:16 History cholecalciferol (vitamin D3) 25 25 mcg PO DAILY 05/17/23 07/08/23 05/17/23 09:16 History mcg (1,000 unit) tablet citalopram 20 mg tablet 20 mg PO DAILY 05/17/23 07/08/23 08/02/23 05:00 History lisinopril 10 mg tablet 10 mg PO DAILY 05/17/23 07/08/23 08/02/23 05:00 History metformin 500 mg tablet 500 mg PO BIDWMEAL 05/17/23 07/08/23 05/17/23 09:16 History multivitamin 1 tab PO DAILY 05/17/23 07/08/23 05/17/23 09:16 History Exam Height,Weight and Vital Signs: Height 5 ft 9 in Weight 72.575 kg Last Vital Signs Temp 97.4 F 08/02/23 06:33 Pulse 93 08/02/23 06:33 Resp 16 08/02/23 06:33 BP 180/83 H 08/02/23 06:33 Pulse Ox 98 08/02/23 06:33 O2 Del Method Room Air 08/02/23 06:33 Pertinent Lab Results Pertinent Lab Results: Laboratory Tests 08/02/23 06:33 POC Glucose 136 H Airway Mallampati Class: III TM Dist: >3cm Neck ROM: Full Loose/Missing/Broken Teeth: Yes, Upper and Lower Heart: RRR Lungs: CTA Assessment and Plan Assessment Anesthesia Assessment: Anesthesia Plan Discussed and Chart Reviewed Final Anesthetic Review Family History of Problems with Anesthesia: No History of Problems with Anesthesia: No NPO: Yes ASA Class: III Final Preanesthetic Review: Meds/Allgs Chart Reviewed, Consent Obtained/Reviewed and Anes Risks/Benef Reviewed Patient Risk: Intermediate Procedure Risk: Intermediate Anesthetic Plan Anesthetic Plan: GA Disposition: Standard PACU
[2023-08-02] MEDS: Metoprolol Tartrate 25 MG TABLET 50 MG PO (06:51)
--- NOTE | 2023-08-02 07:08 | MHC.SHP ---
Pre-Procedural Eval Section A Date of Service: 08/02/23 The patient is an INPATIENT: No Changes since office visit: Yes Cold of Flu in the past 2 weeks, Yes New Medical Problems, Yes Changes in Medication and Yes Patient answered all questions The History & Physical has been completed within 30 days and I have reviewed it.: No Section B Chief Complaint: Major depressive disorder, recurrent, severe with Allergies: Allergies Allergy/AdvReac Type Severity Reaction Status Date / Time Penicillins [PENICILLINS] Allergy Unknown rash Verified 05/17/23 22:12 Plan I have reviewed the history and physical and performed a pertinent physical examination on my patient. No changes have occurred unless specified. Time Spent With Patient Time: Total time managing care of this patient today ____ minutes.
--- NOTE | 2023-08-02 07:22 | HO.ECTPROC ---
ECT Procedure Note Diagnosis/Treatment Date of Service: 08/02/23 Diagnosis: Major Depressive Disorder Previous ECT Date: 07/26/23 Treatment: Maintenance Interval Clinical Notes: The patient reports dysphoria, no changes of her mental status with the previous ECT. No side effects with prior treatment. ECT done as usual, no changes, no complications, used as usual Propofol and Midazolam after ECT. Woke up without any problems, no agitation Time: Total time managing care of this patient today __30__ minutes. ECT Settings Device: THYMATRON DGx Electrode Placement: Rt temporal/ Lt frontal Program/Pulse Width: 0.25 Energy Percent: 100 Seizure Duration By EEG (in seconds): 55 By Motor Observation (in seconds): 0 Medications Administration General Anesthetic: Etomidate (14) Muscle Relaxant: Succinylcholine (100) Ancillary Medications Analgesics: Torodol - Pre ECT Anti-emetics: Zofran - Pre ECT Miscillaneous Medications: Propofol and Midazolam Airway Management Airway Management: Bag Mask Ventilation Treatment Recommendations No Changes Recommended: No change Pt Tolerated Procedure w/o Issue: Yes
--- NOTE | 2023-08-02 08:01 | HO.ANESEVENT ---
Anesthesia Event Note Date of Service: 08/02/23 Event Note: Pt with lengthy somnolence and BP's 80's/50's 20 min after procedure. BP improved to 140's/80's with stimuli. Next time would recommend using metoprolol 25 mg po pre-op instead of 50mg and decrease midazolam dose from 2mg post-op to 1mg. Time Spent With Patient Time: Total time managing care of this patient today ____ minutes.
== END 2023-08-02 09:01 | disposition home or self-care (01) ==
PROVIDERS: Visit Provider Psychiatry & Neurology Psychiatry
PROC: (CPT 90870; principal; 2023-08-02 08:00)
DX: F33.3 Major depressive disorder, recurrent, severe with psychotic symptoms (principal); I95.1 Orthostatic hypotension; E11.9 Type 2 diabetes mellitus without complications; F41.1 Generalized anxiety disorder; E78.5 Hyperlipidemia, unspecified; Z79.84 Long term (current) use of oral hypoglycemic drugs; Z79.899 Other long term (current) drug therapy
CPT/HCPCS: 82947; 90870; 99499; J0330; J1885; J2250; J2405; J2704

== ENCOUNTER → 2023-08-02 05:50 | Outpatient (BNV) | payer MEDICARE, SELFPAY | PROVIDERS: Visit Provider Psychiatry & Neurology Psychiatry | DX: F33.3 Major depressive disorder, recurrent, severe with psychotic symptoms (principal) | CPT/HCPCS: 90870 ==

== ENCOUNTER 2023-08-09 05:57 | Day surgery (SDC) | payer MEDICARE, SELFPAY ==
[2023-08-09] VITALS (7 sets, daily range): BP systolic 118–168; BP diastolic 72–98; PULSE 68–100; RESP 16–20; TEMP 36.1–36.6; O2SAT 94–99; BMI 23.9
--- NOTE | 2023-08-09 07:12 | MHC.SHP ---
Pre-Procedural Eval Section A Date of Service: 08/09/23 The patient is an INPATIENT: No Changes since office visit: No Cold of Flu in the past 2 weeks, No New Medical Problems, No Changes in Medication and No Patient answered all questions The History & Physical has been completed within 30 days and I have reviewed it.: Yes Section B Chief Complaint: depression Allergies: Allergies Allergy/AdvReac Type Severity Reaction Status Date / Time Penicillins [PENICILLINS] Allergy Unknown rash Verified 05/17/23 22:12 Plan I have reviewed the history and physical and performed a pertinent physical examination on my patient. No changes have occurred unless specified. Time Spent With Patient Time: Total time managing care of this patient today ____ minutes.
--- NOTE | 2023-08-09 07:52 | HO.ANESPROP2 ---
[facility] Active Problems Active Problems: All Active Problems (Updated 06/16/23 @ 00:03 by Case Tuan) Major depression with psychotic features (Acute) Past Medical History Medical History Routine medical exam HLD (hyperlipidemia) HTN (hypertension) Non-insulin dependent type 2 diabetes mellitus Family History Family history of problems with anesthesia: No Surgical History History of Problems with Anesthesia: No Social History Social History Household Members: Significant Other Housing: Apartment Do you presently have visiting nurse or other home services: No Patient Tobacco Use Status: Never used Tobacco Tobacco use type: Cigarette e-Cigarette/Vaping Use: Never Used Second Hand Smoke Exposure: No Substance Use Type: Marijuana Advance Directives: No Advance Directives Information Provided: Yes service: No Sexual orientation: Straight/Heterosexual Meds Allergies Allergy/AdvReac Type Severity Reaction Status Date / Time Penicillins [PENICILLINS] Allergy Unknown rash Verified 05/17/23 22:12 Active Medications: Current Medications Metoprolol Tartrate (Metoprolol Tartrate 25 Mg Tablet) 25 mg PO ONCE ONE; Protocol Stop: 08/09/23 07:52 Home Medications Medication Instructions Recorded Confirmed Last Taken Type atorvastatin 20 mg tablet 20 mg PO DAILY 05/17/23 07/08/23 05/17/23 09:16 History cholecalciferol (vitamin D3) 25 25 mcg PO DAILY 05/17/23 07/08/23 05/17/23 09:16 History mcg (1,000 unit) tablet citalopram 20 mg tablet 20 mg PO DAILY 05/17/23 07/08/23 08/02/23 05:00 History lisinopril 10 mg tablet 10 mg PO DAILY 05/17/23 07/08/23 08/02/23 05:00 History metformin 500 mg tablet 500 mg PO BIDWMEAL 05/17/23 07/08/23 05/17/23 09:16 History multivitamin 1 tab PO DAILY 05/17/23 07/08/23 05/17/23 09:16 History Exam Height,Weight and Vital Signs: Height 5 ft 9 in Weight 73.482 kg Last Vital Signs Temp 97 F 08/09/23 06:27 Pulse 90 08/09/23 07:46 Resp 20 08/09/23 07:46 BP 168/85 H 08/09/23 07:46 Pulse Ox 99 08/09/23 07:46 O2 Del Method Room Air 08/09/23 07:46 Pertinent Lab Results Pertinent Lab Results: Laboratory Tests 08/09/23 06:23 POC Glucose 131 H Airway Mallampati Class: II TM Dist: >3cm Neck ROM: Full Heart: rrr Lungs: cta Assessment and Plan Assessment Anesthesia Assessment: Anesthesia Plan Discussed and Chart Reviewed Final Anesthetic Review Family History of Problems with Anesthesia: No History of Problems with Anesthesia: No NPO: Yes ASA Class: III and Emergency ( no meds taken, BP not controlled, psychiatrist aware of increased cardiac risk declared emergency and to proceed, given metoprolol 25 mg PO 7:30am prior ) Final Preanesthetic Review: Meds/Allgs Chart Reviewed Patient Risk: Intermediate Procedure Risk: Intermediate Anesthetic Plan Anesthetic Plan: GA Disposition: Standard PACU
--- NOTE | 2023-08-09 08:19 | HO.ECTPROC ---
ECT Procedure Note Diagnosis/Treatment Date of Service: 08/09/23 Previous ECT Date: 08/02/23 Treatment: Series Interval Clinical Notes: The patient remains dysphoric and anxious. No response yet with ECT. No side effects with the previous procedure Today he came and he didn;t take his BP meds, on the last procedure, we gave him Metoprolol PO and later he was hypotnesive. We discussed with the team and we decided to givie him again Metoprolol 25 mg po and wait for 30 minutes, and his BP went lower, still, he needs to have BP controlled. Procedure done as usual, his BP was high and needed Esmolol and Nitroglycerin. Woke up well, Propofol and a lower dose of Midazolam given since he was oversedated with Midazolam 2 mg last procedure. Time: Total time managing care of this patient today _40___ minutes. ECT Settings Device: THYMATRON DGx Electrode Placement: Rt temporal/ Lt frontal Program/Pulse Width: 0.25 Energy Percent: 100 Seizure Duration By EEG (in seconds): 54 By Motor Observation (in seconds): 22 Medications Administration General Anesthetic: Etomidate (14) Muscle Relaxant: Succinylcholine (100) Ancillary Medications Analgesics: Torodol - Pre ECT Anti-emetics: Zofran - Pre ECT Cardiovascular Medications: Esmolol Miscillaneous Medications: Propofol and Midazolam (1mg) Airway Management Airway Management: Bag Mask Ventilation Treatment Recommendations No Changes Recommended: No change Notes: The patient will need Cardiology clearence for next ECT, his BP was not controlled and it was high and needed Esmolol and Nitro.
== END 2023-08-09 09:42 | disposition home or self-care (01) ==
PROVIDERS: Visit Provider Psychiatry & Neurology Psychiatry
PROC: (CPT 90870; principal; 2023-08-09 15:00)
DX: F33.2 Major depressive disorder, recurrent severe without psychotic features (principal); F41.1 Generalized anxiety disorder; I10 Essential (primary) hypertension; E11.9 Type 2 diabetes mellitus without complications; E78.5 Hyperlipidemia, unspecified; Z79.84 Long term (current) use of oral hypoglycemic drugs; Z79.899 Other long term (current) drug therapy; Z88.0 Allergy status to penicillin
CPT/HCPCS: 82947; 90870; J0330; J1805; J1885; J2250; J2305; J2405; J2704

== ENCOUNTER → 2023-08-09 05:57 | Outpatient (BNV) | payer MEDICARE, SELFPAY | PROVIDERS: Visit Provider Psychiatry & Neurology Psychiatry | DX: F33.3 Major depressive disorder, recurrent, severe with psychotic symptoms (principal) | CPT/HCPCS: 90870 ==